=== PATIENT | female | born 1975 | race Caucasian/White ===

== ENCOUNTER 2022-05-30 14:36 | Outpatient (REF) | payer MEDICAID, SELFPAY ==
[2022-05-30 16:56] LABS: Anion Gap 12 (12-20); Blood Urea Nitrogen 16 mg/dL (9-16); Calcium 9.4 mg/dL (8.4-10.2); Carbon Dioxide 26 mmol/L (22-29); Chloride 105 mmol/L (96-108); Estimated Glomerular Filt Rate 49; Potassium 4.2 mmol/L (3.3-5.1); Sodium 139 mmol/L (135-145)
[2022-05-30 17:19] LABS: Appearance Urine Clear; Color Urine Yellow; Glucose Urine UA Negative (Negative); Leukocyte Esterase Urine Small (1+) (Negative); Nitrite Urine Negative (Negative); Specific Gravity - Urine 1.015 (1.005-1.025); UMIC TRIGGER UA YES; Urine Blood Negative (Negative); Urine Ketones Negative (Negative); Urine Protein 100 (2+) mg/dL (Neg-Trace)
[2022-05-30 17:26] LABS: Bacteria Urine 2+ (None Seen); Hyaline Casts Urine 0-2 /LPF (0-2)
[2022-05-30 18:01] LABS: Creatinine Urine 134.04 mg/dL; Protein/Creatinine Ratio, Ur 0.93 (<0.2); Total Protein Urine Random 125 mg/dL (<12)
[2022-05-30 18:09] LABS: Microalbum/Creatinine Ratio Ur 634.8 ug/mg cr
[2022-05-31 08:13] LABS: Hepatitis B Surface Antigen Negative (Negative); ~Hepatitis C Antibody Nonreactive (Nonreactive)
[2022-06-01 13:13] LABS: Anti Nuclear Antibody Screen NEGATIVE (NEGATIVE)
[2022-06-01 13:28] LABS: Complement C3 190 mg/dL (83-193)
[2022-06-02 07:23] LABS: Hepatitis B Core Antibody IgM NON-REACTIVE (NON-REACTIVE)
[2022-06-02 15:13] LABS: Kappa Light Chain, Free Serum 48.2 mg/L (3.3-19.4); Kappa/Lambda Lt Ch Free Ratio 1.21 (0.26-1.65); Lambda Light Chain, Free Serum 39.9 mg/L (5.7-26.3)
[2022-06-02 23:29] LABS: Prot Elec - Alpha1 0.2 g/dL (0.2-0.3); Prot Elec - Alpha2 0.8 g/dL (0.5-0.9); Prot Elec - Beta 1 0.5 g/dL (0.4-0.6); Prot Elec - Beta 2 0.4 g/dL (0.2-0.5); Prot Elec - Gamma 1.5 g/dL (0.8-1.7); Prot Elec - Total Protein 7.3 g/dL (6.1-8.1)
== END 2022-05-30 14:37 | disposition home or self-care (01) ==
LOC: HO.LAB 14:36
PROVIDERS: PCP Family Medicine; Visit Provider Internal Medicine Nephrology
DX: E11.22 Type 2 diabetes mellitus with diabetic chronic kidney disease (principal); I12.9 Hypertensive chronic kidney disease with stage 1 through stage 4 chronic kidney disease, or unspecified chronic kidney disease; N18.9 Chronic kidney disease, unspecified; R80.1 Persistent proteinuria, unspecified
CPT/HCPCS: 36415; 80051; 81001; 82043; 82310; 82565; 83521; 84156; 84165; 84520; 86038; 86039; 86160; 86705; 86803; 87340

== ENCOUNTER 2023-02-16 13:40 | Outpatient (AMB) | payer BC, MEDICAID, SELFPAY ==
[2023-02-16 13:46] VITALS: BP 136/75; PULSE 85; BMI 43.1
--- NOTE | 2023-02-16 13:46 | MHC.OFFVIS ---
Intake Vital Signs 02/16/23 13:46 Height 5 ft 5 in Weight 259 lb BMI 43.1 BP 136/75 Blood Pressure Location Rt brachial Position Sitting Pulse 85 Intake Visit Reasons: external hemorrhoids Intake Note: Patient here for painful external hemorrhoids. Recent flare up for 3wks. C/o bleeding. Denies constipation. Patient c/o severe pain with BM. Colonoscopy from December patient waiting to be reschedule. Accompanied by: Self / Same As Patient Allergies No Known Allergies Allergy (Verified 02/16/23 13:49) HPI HPI Comments History of Present Illness Details Patient presents for for evaluation of severe anorectal symptoms . This has been going on for 3-4 weeks time. She is complaining of intense anorectal pain, which she was attributing to hemorrhoids. She had history of hemorrhoids in the past. Patient has not had colonoscopy and is in fact scheduled for 1 in April. Patient does not have history of constipation. Regular bowel habits and diet. Chart was reviewed and patient evaluated [facility] Medical History (Updated 02/16/23 @ 13:54 by JODY King) Asthma HTN (hypertension) Other cervical disc degeneration at C4-C5 level Pre-diabetes Surgical History (Updated 02/16/23 @ 14:11 by Ulises Shultz MD) H/O: hysterectomy Hx of tonsillectomy Social History (Updated 02/16/23 @ 13:54 by JODY King) Alcohol intake: never Patient Tobacco Use Status: Never used Tobacco Physical Exam Vital Signs: Last Vital Signs Pulse 85 02/16/23 13:46 BP 136/75 02/16/23 13:46 BMI result Body Mass Index 43.1 GI Other: Very challenging exam secondary to patient discomfort and moderate corpulent. Abdomen soft benign. Anorectal exam in the prone position demonstrated very small external hemorrhoids. Patient had a moderately sized anterior anal fissure. Rectal exam was deferred secondary to patient's marked discomfort and in a rectal spasm. Assessment & Plan Assessment & Plan (1) Fissure in ano: Code(s): K60.2 - Anal fissure, unspecified Plan Working diagnosis is of anal rectal fissure. At present, no significant hemorrhoidal disease demonstrated. Because of the marked discomfort at the patient is having, patient may benefit from internal sphincterotomy. Will refer her for evaluation tomorrow with Dr. Gill for 2nd opinion regarding this. All questions were answered. Arrangements were made for follow-up tomorrow. Coding Level of Care Code New Pt Level 4 (13648) Diagnoses Fissure in ano K60.2
== END 2023-02-16 14:10 | disposition home or self-care (01) ==
PROVIDERS: PCP Family Medicine; Referring Provider Family Medicine; Visit Provider Surgery
DX: K60.2 Anal fissure, unspecified (principal)
CPT/HCPCS: 99204

== ENCOUNTER → 2023-02-16 13:40 | Outpatient (BNVA) | payer BC, MEDICAID, SELFPAY | PROVIDERS: PCP Family Medicine; Referring Provider Family Medicine; Visit Provider Surgery | DX: K60.2 Anal fissure, unspecified (principal) | CPT/HCPCS: 99202 ==

== ENCOUNTER 2023-02-17 10:32 | Outpatient (AMB) | payer BC, MEDICAID, SELFPAY ==
--- NOTE | 2023-02-17 10:56 | MHC.OFFVIS ---
Intake Vital Signs 02/17/23 11:06 Height 5 ft 5 in Weight 257 lb 15.053 oz BMI 42.9 BP 130/72 Blood Pressure Location Lt brachial Position Sitting Pulse 80 Intake Visit Reasons: Anal fissure - internal sphincterotomy Intake Note: Patient is seen in office for evaluation and treatment of anal fissure/internal sphincterotomy. Patient c/o: increase pain since yesterday, seen by Dr Shultz Dial Painter Required: No Accompanied by: Self / Same As Patient Allergies No Known Allergies Allergy (Verified 02/17/23 11:07) HPI HPI Comments History of Present Illness Details 47-year-old female patient presenting for complaints of anal pain and bleeding for the past 3-4 weeks. She has a history of hemorrhoids feels the pain is much more severe. She denies constipation but does have loose stool and occasionally has difficulty holding in her bowels. This is been a problem since her gallbladder surgery. She denies needing to strain to have a bowel movement. She was seen by Dr. Shultz yesterday in felt to have a anal fissure with tight anal sphincter muscles. She is seen as a 2nd opinion today for possible lateral internal sphincterotomy. [facility] Medical History Asthma HTN (hypertension) Other cervical disc degeneration at C4-C5 level Pre-diabetes Surgical History H/O: hysterectomy Hx of tonsillectomy Social History Alcohol intake: never Patient Tobacco Use Status: Never used Tobacco Review of Systems Const All systems reviewed & are unremarkable except as noted in HPI and below Denies chills, Denies fever(s), Denies headache(s), Denies poor appetite and Denies weakness ENT Denies headache(s) Card Denies chest pain, Denies irregular heart rhythm, Denies palpitations and Denies dyspnea Resp Denies cough, Denies excessive phlegm production and Denies dyspnea GI Denies abdominal pain, Denies bloating, Denies change in bowel habits, Denies constipation, Reports GI cramping, Denies heartburn, Reports diarrhea, Denies nausea and Denies vomiting Denies urinary frequency Musc Denies back pain, Denies muscle weakness and Denies numbness Skin/Breast Denies changing lesions and Denies unusual bruising Neuro Denies headache(s), Denies numbness, Denies paresthesias and Denies weakness Psych Denies anxiety and Denies depression Endo Denies palpitations Jono/Lymph Denies lymphadenopathy Physical Exam Const General: cooperative and no acute distress Nutritional Appearance: well nourished Orientation/consciousness: patient oriented x3 Limitations: no limitations HEENT Head: Yes normocephalic and Yes atraumatic Ears: hearing grossly normal bilaterally Resp Effort & Inspection: normal respiratory effort, no audible wheezes, no cough and no respiratory distress Cardio Jugular venous distension: no JVD GI Inspection: Yes normal to inspection Palpation (GI): Soft to palpation Rectal Exam - Female: deferred Skin Other: Warm, dry, no rash Neuro General: patient oriented x3 Extrem General: Yes no clubbing, cyanosis or edema Assessment & Plan Assessment & Plan (1) Fissure in ano: Code(s): K60.2 - Anal fissure, unspecified Plan 47-year-old female patient with severe rectal pain found on examination yesterday to have an anal fissure with anal sphincter hypertrophy. Patient is in significant discomfort this morning therefore examination was deferred. I recommended exam under anesthesia with possible lateral internal sphincterotomy. I reviewed the procedure, risks, and alternatives in detail and she consents to the exam under anesthesia and possible lateral internal sphincterotomy. Coding Level of Care Code Est Pt Level 3 (34323) Diagnoses Fissure in ano K60.2
[2023-02-17 11:06] VITALS: BP 130/72; PULSE 80; BMI 42.9
== END 2023-02-17 11:21 | disposition home or self-care (01) ==
PROVIDERS: PCP Family Medicine; Visit Provider Surgery
DX: K60.2 Anal fissure, unspecified (principal)
CPT/HCPCS: 99213

== ENCOUNTER → 2023-02-17 10:32 | Outpatient (BNVA) | payer BC, MEDICAID, SELFPAY | PROVIDERS: PCP Family Medicine; Visit Provider Surgery | DX: K60.2 Anal fissure, unspecified (principal) | CPT/HCPCS: 99212 ==

== ENCOUNTER 2023-02-20 10:45 | Day surgery (SDC) | payer BC, MEDICAID, SELFPAY ==
[2023-02-20] VITALS (10 sets, daily range): BP systolic 127–155; BP diastolic 74–96; PULSE 77–93; RESP 12–23; TEMP 36.5–36.9; O2SAT 92–96; BMI 42.9
--- NOTE | 2023-02-20 12:25 | HO.ANESPROP2 ---
HPI - Anesthesia Eval Consult details Narrative: for anal fissure PMFSH Active Problems Active Problems: All Active Problems (Updated 02/20/23 @ 12:12 by Keisha Barcenas RN) Fissure in ano (Acute) Past Medical History Medical History Asthma HTN (hypertension) Other cervical disc degeneration at C4-C5 level Pre-diabetes Proteinuria Family History Family history of problems with anesthesia: No Surgical History Surgical History H/O: hysterectomy History of cholecystectomy Hx of tonsillectomy History of Problems with Anesthesia: No Social History Social History Alcohol intake: never Patient Tobacco Use Status: Never used Tobacco Use of substances other than those prescribed or required for medical reasons: No Are you DNR?: No Advance Directives: No Advance Directives Information Provided: Yes Meds Allergies Allergy/AdvReac Type Severity Reaction Status Date / Time No Known Allergies Allergy Verified 02/17/23 11:07 Active Medications: Current Medications Lactated Ringer's (Lr) 1,000 mls @ 100 mls/hr IVCONT .Q10H МАРИЯ Cefotetan Disodium 2 gm/ (Sodium Chloride) 50 mls @ 100 mls/hr IV PREOP ONE Stop: 02/20/23 12:27 Home Medications Medication Instructions Recorded Confirmed Last Taken Type amitriptyline 25 mg tablet 25 mg PO BEDTIME 02/16/23 Unknown History amlodipine 5 mg tablet 5 mg PO DAILY 02/16/23 Unknown History baclofen 10 mg tablet 10 mg PO TID 02/16/23 Unknown History losartan 100 mg tablet 100 mg PO DAILY 02/16/23 Unknown History metformin 500 mg tablet 500 mg PO DAILY 02/16/23 Unknown History omeprazole 20 mg capsule,delayed 20 mg PO DAILY 02/16/23 Unknown History release rosuvastatin 20 mg tablet 20 mg PO DAILY 02/16/23 Unknown History Exam Exam Date and Time: February 20, 2023 1225 Height,Weight and Vital Signs: Height 5 ft 5 in Weight 117.027 kg Airway Mallampati Class: III TM Dist: <=3cm Neck ROM: Full Heart: rrr Lungs: cta Assessment and Plan Assessment Anesthesia Assessment: Anesthesia Plan Discussed and Chart Reviewed Final Anesthetic Review Family History of Problems with Anesthesia: No History of Problems with Anesthesia: No ASA Class: III Final Preanesthetic Review: No Changes in Pt Med Stat, Meds/Allgs Chart Reviewed, Consent Obtained/Reviewed and Anes Risks/Benef Reviewed Patient Risk: Intermediate Procedure Risk: Intermediate Anesthetic Plan Anesthetic Plan: GA Disposition: Standard PACU
[2023-02-20] MEDS: Lactated Ringers 1,000 ML 100 ML IVCONT (12:44)
[2023-02-20 12:45] LABS: Glucose, Whole Blood 110 mg/dL (60-115)
--- NOTE | 2023-02-20 13:37 | P.OP_ITS ---
Operative Note Operative Note Date of Service: 02/20/23 Narrative: Preoperative diagnosis: Fissure in ano Postoperative diagnosis: Same Procedure: Exam under anesthesia, lateral internal sphincterotomy Surgeon: Black Gill MD Senior Systems Engineer: None Anesthesia: General endotracheal Indications for procedure: 47-year-old female patient presenting with complaints of rectal pain and bleeding on a daily basis especially with bowel movements. Patient was found to have a tight anal sphincter muscle on examination with extreme pain on palpation. 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 Operative findings: Anal fissure in the posterior anal wall, hypertrophic inte rnal anal sphincter Specimen: None Estimated blood loss: 5 mL Complications: None Procedure details: Patient was brought to the OR placed in a supine position. After administering general anesthesia she was placed in a lithotomy position. The ebonie anal skin was prepped with Betadine and draped in a sterile fashion. Surgical time-out was called the consent confirmed. Patient received pr eoperative antibiotics and Venodyne boots were in place. An anal below was inserted in the anal mucosa examined. A fissure was noted the posterior wall which was actively bleeding. Sphincter was markedly hypertrophied. Internal examination revealed mild internal hemorrhoids without evidence of ulceration or bleeding. No evidence of perirectal abscess was identified. Local anesthesia was infiltrated in a 03:00 o'clock location while in the lithotomy position. The small incision measuring approximately 1 cm was made in the lateral anal mucosa at the 3 o'clock position. A hemostat was then used to dissect the hypertrophic internal anal sphincter. This was brought up through the incision. Electrocautery was then used to divide the anal sphincter. A small amount of residual anal sphincter was noted sightly more proximally. This was also brought through the incision and divided. These were then checked for hemostasis. Light pressure was held to maintain hemostasis. A packing c onsisting of a rolled 4 x 4 gauze and Xeroform was then placed into the anal canal and left in place. This was then followed by an ABD pad. The patient tolerated the procedure well. Sponge, instrument, needle counts reported as correct. The patient was transferred to PACU in stable condition.
[2023-02-20] MEDS: oxyCODONE HCl Immed Release 5 MG TABLET PO (13:57)
[2023-02-20] MEDS: ondansetron HCL 4 MG/2 ML VIAL IVPUSH (14:08)
== END 2023-02-20 15:41 | disposition home or self-care (01) ==
PROVIDERS: PCP Family Medicine; Visit Provider Surgery
PROC: (CPT 46080; principal; 2023-02-20 13:00)
DX: K60.2 Anal fissure, unspecified (principal); K62.89 Other specified diseases of anus and rectum; K62.5 Hemorrhage of anus and rectum; I10 Essential (primary) hypertension; R73.03 Prediabetes; J45.909 Unspecified asthma, uncomplicated; R80.9 Proteinuria, unspecified; Z79.84 Long term (current) use of oral hypoglycemic drugs; Z79.899 Other long term (current) drug therapy; Z90.49 Acquired absence of other specified parts of digestive tract
CPT/HCPCS: 46080; 82947; J0330; J1100; J1885; J2405

== ENCOUNTER → 2023-02-20 10:45 | Outpatient (BNV) | payer BC, MEDICAID, SELFPAY | PROVIDERS: PCP Family Medicine; Visit Provider Surgery | DX: K60.2 Anal fissure, unspecified (principal) | CPT/HCPCS: 46080 ==

== ENCOUNTER 2023-02-24 15:01 | Outpatient (REF) | payer BC, MEDICAID, SELFPAY ==
[2023-02-24 18:03] LABS: Appearance Urine Cloudy; Color Urine Yellow; Glucose Urine UA Negative (Negative); Leukocyte Esterase Urine Negative (Negative); Nitrite Urine Negative (Negative); PH 5.5 (5.0-9.0); Specific Gravity - Urine 1.015 (1.005-1.025); UMIC TRIGGER UA YES; Urine Blood Negative (Negative); Urine Ketones Negative (Negative); Urine Protein 300 (3+) mg/dL (Neg-Trace)
[2023-02-24 18:06] LABS: Bacteria Urine 4+ (None Seen); Hyaline Casts Urine 0-2 /LPF (0-2)
[2023-02-24 18:13] LABS: Hematocrit 41.2 % (37.0-47.0); Hemoglobin 13.7 g/dl (12.0-16.0); Mean Corpuscular HGB Conc 33.3 g/dl (31.0-35.0); Mean Corpuscular Hemoglobin 30.6 pg (27.0-33.0); Mean Platelet Volume 11.4 fL (9.4-12.3); Platelet Count 305 X10*3/uL (160-400); Red Blood Count 4.48 X10*6/uL (4.20-5.50); Red Cell Distribution Width 12.1 % (11.0-16.0); White Blood Count 9.3 X10*3/uL (4.8-10.8)
[2023-02-24 18:38] LABS: Albumin Level 4.1 g/dL (3.5-5.0); Anion Gap 15 (12-20); Blood Urea Nitrogen 12 mg/dL (9-16); Calcium 9.6 mg/dL (8.4-10.2); Carbon Dioxide 28 mmol/L (22-29); Chloride 103 mmol/L (96-108); Estimated Glomerular Filt Rate 44; Magnesium 1.6 mg/dL (1.6-2.6); Phosphorus 3.1 mg/dL (2.7-4.5); Potassium 3.6 mmol/L (3.3-5.1); Sodium 142 mmol/L (135-145)
[2023-02-24 18:49] LABS: Creatinine Urine 196.93 mg/dL; Microalbum/Creatinine Ratio Ur 775.4 ug/mg cr (<30); Protein/Creatinine Ratio, Ur 1.05 (<0.2); Total Protein Urine Random 207 mg/dL (<12)
[2023-02-24 18:53] LABS: Vitamin D 25-OH Total 35.5 ng/mL (>30)
[2023-02-27 11:29] LABS: Calcium (PTHI) 9.5 mg/dL (8.6-10.2); PTHI 58 pg/mL (16-77)
== END 2023-02-24 15:02 | disposition home or self-care (01) ==
LOC: HO.CHCLDS 15:01
PROVIDERS: Internal Medicine Nephrology; Visit Provider Internal Medicine
DX: I12.9 Hypertensive chronic kidney disease with stage 1 through stage 4 chronic kidney disease, or unspecified chronic kidney disease (principal); E11.22 Type 2 diabetes mellitus with diabetic chronic kidney disease; N18.31 Chronic kidney disease, stage 3a
CPT/HCPCS: 36415; 80051; 81001; 82040; 82043; 82306; 82310; 82565; 83735; 83970; 84100; 84156; 84520; 85027

== ENCOUNTER 2023-02-28 08:37 | Outpatient (AMB) | payer BC, MEDICAID, SELFPAY ==
--- NOTE | 2023-02-28 08:42 | A.OFFVIS_ITS ---
Intake Vital Signs 02/28/23 08:50 Height 5 ft 5 in Weight 258 lb 13.163 oz BMI 43.1 BP 130/82 Blood Pressure Location Lt brachial Position Sitting Intake Visit Reasons: S/P EUA, sphincterotomy Intake Note: Patient is seen in office for post op assessment post sphincterotomy. 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 She tolerated the procedure well and notes a dramatic improvement. Her pain is much improved bowels are moving normally. She does have a small amount of yellowish discharge denies any fever or chills. PFSH Medical History Asthma HTN (hypertension) Other cervical disc degeneration at C4-C5 level Pre-diabetes Proteinuria Surgical History H/O rectal sphincterotomy H/O: hysterectomy History of cholecystectomy Hx of tonsillectomy Social History Alcohol intake: never Patient Tobacco Use Status: Never used Tobacco Physical Exam Vital Signs: Last Vital Signs BP 130/82 02/28/23 08:50 BMI result Body Mass Index 43.1 Const General: healthy appearing and no acute distress Nutritional Appearance: well nourished Orientation/consciousness: patient oriented x3 Limitations: no limitations Resp Effort & Inspection: normal respiratory effort GI Other: Perianal skin is normal without redness or discharge. Small residual incision is noted in the perianal skin which is healing nicely. No evidence of infection or bleeding. Inspection: Yes normal to inspection Skin General skin exam: no rashes or lesions noted Neuro General: patient oriented x3 Extrem General: Yes no clubbing, cyanosis or edema Assessment & Plan Assessment & Plan (1) Fissure in ano: Code(s): K60.2 - Anal fissure, unspecified Plan Patient returns 1 week following lateral internal sphincterotomy for anal fissure. She is much improved and denies any ongoing perianal symptoms other than a small amount of discharge. Her wounds are clean and intact and healing nicely. She should continue to keep the wounds clean with Sitz baths after every bowel movement and p.r.n.. She will follow-up as needed. Coding Level of Care Code Global (77119) Diagnoses Fissure in ano K60.2
[2023-02-28 08:50] VITALS: BP 130/82; BMI 43.1
== END 2023-02-28 08:59 | disposition home or self-care (01) ==
PROVIDERS: PCP Family Medicine; Visit Provider Surgery
DX: K60.2 Anal fissure, unspecified (principal)
CPT/HCPCS: 99024

== ENCOUNTER → 2023-02-28 08:37 | Outpatient (BNVA) | payer BC, MEDICAID, SELFPAY | PROVIDERS: PCP Family Medicine; Visit Provider Surgery ==

== ENCOUNTER 2023-04-17 12:38 | Outpatient (REF) | payer BC, MEDICAID, SELFPAY ==
[2023-04-17 14:28] LABS: B Type Natriuretic Peptide < 10 pg/mL (<100)
[2023-04-17 14:36] LABS: Anion Gap 15 (12-20); Blood Urea Nitrogen 15 mg/dL (9-16); Calcium 9.6 mg/dL (8.4-10.2); Carbon Dioxide 24 mmol/L (22-29); Chloride 106 mmol/L (96-108); Estimated Glomerular Filt Rate 50; Glucose Random 108 mg/dL (60-115); Sodium 141 mmol/L (135-145)
== END 2023-04-17 12:39 | disposition home or self-care (01) ==
LOC: HO.LAB 12:38
PROVIDERS: Visit Provider Emergency Medicine
DX: R60.0 Localized edema (principal)
CPT/HCPCS: 36415; 80048; 83880

== ENCOUNTER 2023-10-03 12:10 | Outpatient (REF) | payer BC, MEDICAID, SELFPAY ==
--- NOTE | ~2023-10-03 | XR_ITS ---
EXAMINATION: XR THORACIC SPINE CLINICAL INFORMATION: Pain. COMPARISON: None available. TECHNIQUE: Frontal, lateral and swimmer's views of the thoracic spine were obtained. FINDINGS: There is a slight T8 anterior wedge compression fracture. Vertebral body heights are otherwise unremarkable. The thoracic disc spaces are well-maintained. There is multi-level mild thoracic endplate arthropathy. The posterior elements are intact. The paravertebral soft tissues are unremarkable. There are right upper quadrant surgical clips. XR/XR thoracic spine 2V IMPRESSION: 1. There is an age-indeterminate slight T8 anterior wedge compression fracture. 2. The thoracic disc spaces are well-maintained. 3. There is multi-level mild thoracic endplate arthropathy. EXAMINATION: XR SACRUM AND COCCYX CLINICAL INFORMATION: Pain. COMPARISON: None available. TECHNIQUE: 3 frontal and lateral views of the sacrum and coccyx were obtained. FINDINGS: There are no fractures. No bone, joint or soft tissue abnormality is demonstrated. IMPRESSION: Unremarkable examination.
--- NOTE | ~2023-10-03 | XR_ITS ---
EXAMINATION: XR THORACIC SPINE CLINICAL INFORMATION: Pain. COMPARISON: None available. TECHNIQUE: Frontal, lateral and swimmer's views of the thoracic spine were obtained. FINDINGS: There is a slight T8 anterior wedge compression fracture. Vertebral body heights are otherwise unremarkable. The thoracic disc spaces are well-maintained. There is multi-level mild thoracic endplate arthropathy. The posterior elements are intact. The paravertebral soft tissues are unremarkable. There are right upper quadrant surgical clips. XR/XR sacrum coccyx min 2V IMPRESSION: 1. There is an age-indeterminate slight T8 anterior wedge compression fracture. 2. The thoracic disc spaces are well-maintained. 3. There is multi-level mild thoracic endplate arthropathy. EXAMINATION: XR SACRUM AND COCCYX CLINICAL INFORMATION: Pain. COMPARISON: None available. TECHNIQUE: 3 frontal and lateral views of the sacrum and coccyx were obtained. FINDINGS: There are no fractures. No bone, joint or soft tissue abnormality is demonstrated. IMPRESSION: Unremarkable examination.
== END 2023-10-03 12:11 | disposition home or self-care (01) ==
LOC: HO.XRAY 12:10
PROVIDERS: PCP Family Medicine; Visit Provider Nurse Practitioner Family
DX: M53.3 Sacrococcygeal disorders, not elsewhere classified (principal); M54.6 Pain in thoracic spine
CPT/HCPCS: 72070; 72220

== ENCOUNTER 2023-11-28 14:34 | Outpatient (AMB) | payer BC, MEDICAID, SELFPAY ==
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
[2023-11-28 14:45] VITALS: BP 177/87; PULSE 75; O2SAT 97; BMI 43.3
== END 2023-11-28 15:42 | disposition home or self-care (01) ==
PROVIDERS: PCP Family Medicine; Visit Provider Nurse Practitioner Family
DX: M50.30 Other cervical disc degeneration, unspecified cervical region (principal); M54.12 Radiculopathy, cervical region; M47.812 Spondylosis without myelopathy or radiculopathy, cervical region; M51.16 Intervertebral disc disorders with radiculopathy, lumbar region; M54.50 Low back pain, unspecified; M62.838 Other muscle spasm
CPT/HCPCS: 99204

== ENCOUNTER → 2023-11-28 14:34 | Outpatient (BNVA) | payer BC, MEDICAID, SELFPAY | PROVIDERS: PCP Family Medicine; Visit Provider Nurse Practitioner Family ==

== ENCOUNTER 2023-12-06 14:49 | Outpatient (AMB) | payer MEDICAID, SELFPAY ==
--- NOTE | 2023-12-06 15:03 | A.SPINEOV_ITS ---
Intake Visit Reasons: LBP Intake Note: Ms. Mendez is here today c/o low back pain. 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 She has a pleasant 48-year-old female who comes in today with a chief complaint of low back pain with radiation into her bilateral lower extremities, left side worse than right. Additionally, she reports some less significant posterior cervical neck pain with pains that shoot down her right arm. She states she has been dealing with these neck/arm pains for years, and does not feel as though they are primary concern for her at this time. In regards to her back pain, she states it starts in her low back shoots around her lateral buttocks over her hip and into the lateral thigh. When asked to localize her pain she points directly to her left posterior / lateral waistline. She states this pain has been ongoing for ?years? and that it worsens if she sits / stands for too long. She reports a pertinent medical history of natural childbirth. Additionally she says that getting up out of a car exacerbates her pain, and states that she needs to sit on her right side to relieve pressure off her left in order to obtain symptom relief. She reports she has tried a plethora of iedu-cdv-qotxovl medications in the past including Tylenol, ibuprofen, and hemj-kms-lnmnpnh pain cream/gels. She also has tried several different prescription medications without signific ant symptom relief. She has been to physical therapy and found it has not been helpful for her. PMH: Hysterectomy, tonsillectomy, type 2 diabetes, high blood pressure, hyperlipidemia, asthma, depression. Social hx: Patient does not smoke, reports no substance use. Medications: Metformin, amlodipine, rosuvastatin, albuterol, gabapentin, amitriptyline, baclofen, vitamin D3. Allergies: NKDA. Physical exam: The patient has 5/5 strength in her upper and lower extremities, however does elicit pain to dorsiflexion/plantar flexion. No significant sensational deficits. Reflexes are 2+ intact. (+) left-sided Magdalene finger test, (+) left-sided Rosendo's. (-) bilateral straight leg raise. (-) clonus. (-) Last's. Imaging review: MRI imaging was completed at [facility]. MRI of the cervical spine shows evidence of previous fusion at C4-5, with likely adjacent segment degeneration at C5-6, causing moderate central canal stenosis at this level. MRI of the thoracic spine shows intermittent disc bulging throughout the thoracic spine without any significant impingement noted. MRI of the lumbar spine shows moderate-severe bilateral foraminal stenosis at L4-5, with no significant central canal stenosis noted. There is also mild-moderate bilateral foraminal stenosis at L5-S1. Again no evidence of significant central canal stenosis at this level. Impression: Paula is a pleasant 48-year-old female who comes in today with a chief complaint of low back pain with radiation into her bilateral lower extremities, left side worse than right. She reports a history of natural childbirth, states it is extremely difficult for her to sit up out of a car, has a (+) Magdalene finger test, and has extreme difficulty attempting Rosendo's on left. These findings are most consistent with an SI joint pathology. Her foraminal stenosis in the lumbar spine does not appear any worse on either side upon MRI review. I would like her to have a diagnostic left-sided SI joint block completed in order to rule this out as a potential cause for symptoms. If this does not provide any relief, I may consider re-evaluating her lumbar spine MRI based on the severity of her symptoms or having referred for trochanteric bursa injections. I think ruling out a left-sided SI joint pathology is of pertinent importance before proceeding further. Thank you for allowing us to care for your patient. The total time spent with this visit with this patient was 45 minutes reviewing history, physical exam, MRI imaging review, and implementation of treatment plan or further diagnostic testing Josh Heredia MD,PhD [facility] Coding Level of Care Code New Pt Level 4 (59192) Diagnoses SI (sacroiliac) joint dysfunction M53.3
== END 2023-12-06 15:28 | disposition home or self-care (01) ==
PROVIDERS: PCP Family Medicine; Referring Provider Nurse Practitioner Family; Visit Provider Physician Assistant
DX: M53.3 Sacrococcygeal disorders, not elsewhere classified (principal)
CPT/HCPCS: 99204

== ENCOUNTER → 2023-12-06 14:49 | Outpatient (BNVA) | payer MEDICAID, SELFPAY | PROVIDERS: PCP Family Medicine; Visit Provider Physician Assistant | DX: M53.3 Sacrococcygeal disorders, not elsewhere classified (principal) | CPT/HCPCS: 99212 ==

== ENCOUNTER 2024-01-24 14:29 | Outpatient (REF) | payer MEDICAID, SELFPAY ==
--- NOTE | ~2024-01-24 | XR_ITS ---
EXAMINATION: XR NASAL BONES CLINICAL INFORMATION: Nasal swelling. Severe pain. No history of trauma. COMPARISON: None available. TECHNIQUE: 3 views of the nasal bones were obtained. FINDINGS: There are no fractures or dislocations. No bone, joint or soft tissue abnormality is demonstrated. XR/XR nasal bones min 3V IMPRESSION: Unremarkable examination.
== END 2024-01-24 14:30 | disposition home or self-care (01) ==
LOC: HO.HHCX 14:29
PROVIDERS: Visit Provider Internal Medicine Geriatric Medicine
DX: R22.0 Localized swelling, mass and lump, head (principal); J34.89 Other specified disorders of nose and nasal sinuses
CPT/HCPCS: 70160

== ENCOUNTER 2024-02-06 06:33 | Outpatient (REF) | payer MEDICAID, SELFPAY ==
--- NOTE | ~2024-02-06 | FL_ITS ---
EXAMINATION: XR FLUOROSCOPY WITH IMAGES CLINICAL INFORMATION: Sacrococcygeal disorders, not elsewhere classified. COMPARISON: Plain films of the sacrum 10/03/2023. TECHNIQUE: Fluoroscopy provided to: Dr. Valdes Fluoroscopy time: 0.1 minutes DAP: 0.138 mGycm2 Images: 1 FINDINGS: Solitary coned-down image of the left SI joint shows needle in place with subsequent intra-articular contrast injection. FL/FL guidance in treatment room IMPRESSION: Fluoroscopic guidance. Please refer to the full operative report for details. Electronically signed by: Bryant Lantigua MD 04/05/2024 02:41 PM EDT
== END 2024-02-06 06:34 | disposition home or self-care (01) ==
LOC: CF 06:33
PROVIDERS: Visit Provider Anesthesiology
DX: M53.3 Sacrococcygeal disorders, not elsewhere classified (principal); G89.29 Other chronic pain
CPT/HCPCS: 27096; J2795; J3301; Q9967

== ENCOUNTER 2024-02-06 14:14 | Outpatient (AMB) | payer MEDICAID, SELFPAY ==
[2024-02-06 14:19] VITALS: BP 159/98; PULSE 68; RESP 16; O2SAT 98; BMI 42.6
--- NOTE | 2024-02-06 14:19 | MHC.OFFVIS ---
Vital Signs 02/06/24 14:19 02/06/24 15:29 Height 5 ft 5 in Weight 256 lb BMI 42.6 BP 159/98 H 169/94 H Blood Pressure Location Rt brachial Rt brachial Position Sitting Sitting Respiration 16 16 Pulse 68 77 Pulse Source Pulse Oximeter Pulse Oximeter Pulse Oximetry (%) 98 98 Oxygen Delivery Method Room Air Room Air Comment Pre-Op Post-Op Intake Visit Reasons: left SIJ joint Diagnostic Allergies No Known Allergies Allergy (Verified 02/06/24 14:20) PFSH Medical History (Updated 02/06/24 @ 15:31 by Scott Valdes MD) Ascending aorta dilatation Chronic bilateral thoracic back pain Foot pain, bilateral Vitamin D deficiency Hyperlipidemia Plantar fasciitis Moderate persistent asthma Stage 3a chronic kidney disease Proteinuria Other cervical disc degeneration at C4-C5 level Asthma Pre-diabetes HTN (hypertension) Surgical History (Updated 11/28/23 @ 20:19 by KALI Martin) Fissure in ano H/O rectal sphincterotomy History of cholecystectomy Hx of tonsillectomy H/O: hysterectomy Social History Alcohol intake: never Patient Tobacco Use Status: Never used Tobacco Physical Exam Vital Signs: Last Vital Signs Pulse 68 02/06/24 14:19 Resp 16 02/06/24 14:19 BP 159/98 H 02/06/24 14:19 Pulse Ox 98 02/06/24 14:19 Oxygen Delivery Method Room Air 02/06/24 14:19 BMI result Body Mass Index 42.6 Assessment & Plan Assessment & Plan (1) SI (sacroiliac) joint dysfunction: Code(s): M53.3 - Sacrococcygeal disorders, not elsewhere classified Category: Medical (2) Chronic left SI joint pain: Code(s): M53.3 - Sacrococcygeal disorders, not elsewhere classified; G89.29 - Other chronic pain Category: Medical Plan Left diagnostic sacroiliac joint injection Informed consent was explained thoroughly to the patient. All questions about benefits and risks for the procedure were answered. Patient came to the operating room and was positioned prone on the operating table with the pillow under the pelvis. Time out was performed delineating name and of the patient, allergies and the nature of the procedure. The lower back and buttocks of the patient were prepped with ChloraPrep prepped and draped with sterile utility towels. C-arm was brought over the operating field and sq picture of patient's pelvis was demonstrated on the screen. For the left joint tilting C-arm contralateral to the site of the joint the most posterior portion of the joints was superimposed with anterior silhouette of the joint. Skin was injected in the projection of the joint slightly medial to the location of the joint with 25 gauge 1/2 inch needle using local lidocaine 2% .After that 22 gaug 5 inch needle was driven to the left joint in tunnel vision fashion. Due to excessive body mass and advanced lumbar lordosis the needle advancement was difficult. The needle was directed to midportion of the joint however bony resistance was met and needle was redirected to upper portion of the joint. When needle entered the joint capsule injection of the contrast was performed demonstrating intra-articular and minimally periarticular spread of the contrast. After that 4 cc. of ropivacaine 0.5% was injected into the joint. Upon completion of the injections the needle was removed Sterile dressing was applied. Upon completion of the injection patient was taken outside of the operating room to the recovery room where recovered uneventfully. Orders: Orders FL guidance in treatment room Today M53.3 - Sacrococcygeal disorders, not elsewhere classified Coding Level of Care Code Procedure Only Diagnoses SI (sacroiliac) joint dysfunction M53.3 Chronic left SI joint pain M53.3; G89.29
[2024-02-06 15:29] VITALS: BP 169/94; PULSE 77; RESP 16; O2SAT 98
== END 2024-02-06 15:08 | disposition home or self-care (01) ==
LOC: HO.PMCPRC 14:14
PROVIDERS: PCP Family Medicine; Referring Provider Family Medicine; Visit Provider Anesthesiology
DX: M53.3 Sacrococcygeal disorders, not elsewhere classified (principal); G89.29 Other chronic pain
CPT/HCPCS: 27096

== ENCOUNTER 2024-02-12 14:48 | Outpatient (AMB) | payer MEDICAID, SELFPAY ==
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
[2024-02-12 15:00] VITALS: BP 163/84; PULSE 79; O2SAT 98; BMI 42.6
== END 2024-02-12 15:25 | disposition home or self-care (01) ==
PROVIDERS: PCP Family Medicine; Visit Provider Nurse Practitioner Family
DX: M53.3 Sacrococcygeal disorders, not elsewhere classified (principal); G89.29 Other chronic pain; M51.16 Intervertebral disc disorders with radiculopathy, lumbar region; M54.50 Low back pain, unspecified; M62.838 Other muscle spasm; M47.812 Spondylosis without myelopathy or radiculopathy, cervical region; M47.817 Spondylosis without myelopathy or radiculopathy, lumbosacral region; E66.01 Morbid (severe) obesity due to excess calories; Z68.41 Body mass index [BMI] 40.0-44.9, adult
CPT/HCPCS: 99214

== ENCOUNTER → 2024-02-12 14:48 | Outpatient (BNVA) | payer MEDICAID, SELFPAY | PROVIDERS: PCP Family Medicine; Visit Provider Nurse Practitioner Family | DX: M53.3 Sacrococcygeal disorders, not elsewhere classified (principal); M51.16 Intervertebral disc disorders with radiculopathy, lumbar region; M54.50 Low back pain, unspecified; M62.838 Other muscle spasm; M47.812 Spondylosis without myelopathy or radiculopathy, cervical region; M47.817 Spondylosis without myelopathy or radiculopathy, lumbosacral region; G89.29 Other chronic pain | CPT/HCPCS: 99212 ==

== ENCOUNTER 2024-05-03 07:00 | Day surgery (SDC) | payer MEDICAID, SELFPAY ==
--- NOTE | 2024-03-21 10:13 | HO.ANESPROP2 ---
HPI - Anesthesia Eval Consult details Narrative: 48yo F for Bilateral L5-S1 Transforaminal Epidural Steroid Injection PMFSH Active Problems Active Problems: All Active Problems Morbid obesity with BMI of 40.0-44.9, adult (Acute) Lumbosacral spondylosis (Acute) Chronic left SI joint pain (Acute) SI (sacroiliac) joint dysfunction (Acute) Ascending aorta dilatation (Acute) Stage 3a chronic kidney disease (Acute) Muscle spasm (Acute) Low back pain (Acute) Lumbar disc herniation with radiculopathy (Acute) Cervical spondylosis (Acute) Cervical radiculopathy (Acute) Degenerative disc disease, cervical (Acute) Fissure in ano (Acute) Past Medical History Medical History (Updated 03/21/24 @ 10:14 by Renetta Rodriguez NP) Ascending aorta dilatation Chronic bilateral thoracic back pain Foot pain, bilateral Vitamin D deficiency Hyperlipidemia Plantar fasciitis Moderate persistent asthma Stage 3a chronic kidney disease Proteinuria Other cervical disc degeneration at C4-C5 level Asthma Pre-diabetes HTN (hypertension) Family History Family history of problems with anesthesia: No Surgical History Surgical History (Updated 11/28/23 @ 20:19 by KALI Martin) Fissure in ano H/O rectal sphincterotomy History of cholecystectomy Hx of tonsillectomy H/O: hysterectomy History of Problems with Anesthesia: No Social History Social History Alcohol intake: never Patient Tobacco Use Status: Never used Tobacco Meds Allergies Allergy/AdvReac Type Severity Reaction Status Date / Time No Known Allergies Allergy Verified 02/12/24 14:59 Home Medications ?Medication ?Instructions ?Recorded ?Confirmed ?Last Taken ?Type amitriptyline 25 mg tablet 25 mg PO BEDTIME 02/16/23 02/28/23 Unknown History amlodipine 5 mg tablet 5 mg PO DAILY 02/16/23 02/28/23 Unknown History baclofen 10 mg tablet 10 mg PO TID 02/16/23 02/28/23 Unknown History losartan 100 mg tablet 100 mg PO DAILY 02/16/23 02/28/23 Unknown History metformin 500 mg tablet 500 mg PO DAILY 02/16/23 02/28/23 Unknown History omeprazole 20 mg capsule,delayed 20 mg PO DAILY 02/16/23 02/28/23 Unknown History release rosuvastatin 20 mg tablet 20 mg PO DAILY 02/16/23 02/28/23 Unknown History albuterol sulfate 90 mcg/actuation 2 puff inhalation Q4-6H PRN 11/28/23 Unknown History aerosol inhaler (ProAir HFA) cholecalciferol (vitamin D3) 125 125 mcg PO DAILY 11/28/23 Unknown History mcg (5,000 unit) capsule gabapentin 100 mg capsule 100 mg PO TID 11/28/23 Unknown History ketotifen fumarate 0.025 % (0.035 1 drp ophthalmic (eye) BID 11/28/23 Unknown History %) eye drops Assessment and Plan Assessment Anesthesia Assessment: Chart Reviewed Final Anesthetic Review Family History of Problems with Anesthesia: No History of Problems with Anesthesia: No
[2024-05-03 07:20] VITALS: BMI 43.6
[2024-05-03] MEDS: Lactated Ringers 1,000 ML 100 ML IVCONT (07:44)
--- NOTE | 2024-05-03 07:52 | P.CONAN_ITS ---
[facility] Active Problems Active Problems: All Active Problems Morbid obesity with BMI of 40.0-44.9, adult (Acute) Lumbosacral spondylosis (Acute) Chronic left SI joint pain (Acute) SI (sacroiliac) joint dysfunction (Acute) Ascending aorta dilatation (Acute) Stage 3a chronic kidney disease (Acute) Muscle spasm (Acute) Low back pain (Acute) Lumbar disc herniation with radiculopathy (Acute) Cervical spondylosis (Acute) Cervical radiculopathy (Acute) Degenerative disc disease, cervical (Acute) Fissure in ano (Acute) Past Medical History Medical History Ascending aorta dilatation Chronic bilateral thoracic back pain Foot pain, bilateral Vitamin D deficiency Hyperlipidemia Plantar fasciitis Moderate persistent asthma Stage 3a chronic kidney disease Proteinuria Other cervical disc degeneration at C4-C5 level Asthma Pre-diabetes HTN (hypertension) Family History Family history of problems with anesthesia: No Surgical History Surgical History Fissure in ano H/O rectal sphincterotomy History of cholecystectomy Hx of tonsillectomy H/O: hysterectomy History of Problems with Anesthesia: No Social History Social History Alcohol intake: never Patient Tobacco Use Status: Never used Tobacco Use of substances other than those prescribed or required for medical reasons: No Are you DNR?: No Advance Directives: No Advance Directives Information Provided: Yes Recently lost weight without trying: No Nutrition Risks: No Nutritional Risk Patient : No Meds Allergies Allergy/AdvReac Type Severity Reaction Status Date / Time No Known Allergies Allergy Verified 02/12/24 14:59 Active Medications: Current Medications Albuterol Sulfate (Albuterol Sulfate (0.083%) 2.5 Mg/3 Ml Vial.Neb) 2.5 mg INHALE ONCE PRN PRN Reason: Shortness of Breath/Wheezing Lactated Ringer's (Lr) 1,000 mls @ 100 mls/hr IVCONT .Q10H МАРИЯ Last Admin: 05/03/24 07:44 Dose: 100 mls/hr Home Medications ?Medication ?Instructions ?Recorded ?Confirmed ?Last Taken ?Type amitriptyline 25 mg tablet 25 mg PO BEDTIME 02/16/23 02/28/23 Unknown History amlodipine 5 mg tablet 5 mg PO DAILY 02/16/23 02/28/23 Unknown History baclofen 10 mg tablet 10 mg PO TID 02/16/23 02/28/23 Unknown History losartan 100 mg tablet 100 mg PO DAILY 02/16/23 02/28/23 Unknown History metformin 500 mg tablet 500 mg PO DAILY 02/16/23 02/28/23 Unknown History omeprazole 20 mg capsule,delayed 20 mg PO DAILY 02/16/23 02/28/23 Unknown History release rosuvastatin 20 mg tablet 20 mg PO DAILY 02/16/23 02/28/23 Unknown History albuterol sulfate 90 mcg/actuation 2 puff inhalation Q4-6H PRN 11/28/23 Unknown History aerosol inhaler (ProAir HFA) cholecalciferol (vitamin D3) 125 125 mcg PO DAILY 11/28/23 Unknown History mcg (5,000 unit) capsule gabapentin 100 mg capsule 100 mg PO TID 11/28/23 Unknown History ketotifen fumarate 0.025 % (0.035 1 drp ophthalmic (eye) BID 11/28/23 Unknown History %) eye drops Exam Height,Weight and Vital Signs: Height 5 ft 5 in Weight 118.955 kg Airway Mallampati Class: III (receding chin) TM Dist: >3cm Neck ROM: Full Loose/Missing/Broken Teeth: No Heart: RRR Lungs: CTA Assessment and Plan Assessment Anesthesia Assessment: Anesthesia Plan Discussed and Chart Reviewed Final Anesthetic Review Family History of Problems with Anesthesia: No History of Problems with Anesthesia: No NPO: Yes ASA Class: III Final Preanesthetic Review: Meds/Allgs Chart Reviewed, Consent Obtained/Reviewed and Anes Risks/Benef Reviewed Patient Risk: Intermediate Procedure Risk: Low Anesthetic Plan Anesthetic Plan: MAC: Disposition: Standard PACU
--- NOTE | 2024-05-03 08:13 | MHC.SHP ---
Pre-Procedural Eval Section A - 24 Hr Update-Section A only Date of Service: 05/03/24 The patient is an INPATIENT: No Changes since office visit: Yes Patient answered all questions The patient has been examined within 24 hours of the surgical procedure. The History & Physical has been completed within 30 days and I have reviewed it.: No Section B - Complete if H&P > 30 days Chief Complaint: Intervertebral disc disorders with radiculopathy, Details of Present Illness: As above Relevant Family History (Specify if Yes): No Relevant Social History: None Present Medications: None Medical History: No relevant PMH History of Previous Operations: No relevant previous surgery Allergies: Allergies Allergy/AdvReac Type Severity Reaction Status Date / Time No Known Allergies Allergy Verified 02/12/24 14:59 Review of Systems Sugical H&P ROS: Negative: Cardiovascular, Respiratory, Neurological, Psychiatric, Hem-Onc, Allergic/Immunologic, Gastrointestinal, Integumentary, Endocrine and Eyes/Ears/Nose/Throat and Yes, Specify: Constitution (Severe morbid obesity), Genitourinary (CKD III) and Musculoskeletal (As above) Exam Surgical H&P Exam: Normal: HEENT, Normal: Heart, Normal: Lungs, Normal: Extremities, Normal: Skin and Normal: Neurological and Significant Findings: Abdomen (enlarged 2 to i/a & s/q fat) Plan Diagnosis/Plan: Unchanged I have reviewed the history and physical and performed a pertinent physical examination on my patient. No changes have occurred unless specified. Time Spent With Patient Time: Total time managing care of this patient today ___5_ minutes.
--- NOTE | 2024-05-03 08:57 | PM.OP ---
Brief Operative Note Date of Service: 05/03/24 Pre-op diagnosis: Disc degeneration disease with radiculopathy Post-op diagnosis: same Procedure: Bilateral transforaminal epidural steroid injection L5-S1. Surgeon: Scott Valdes MD Was an Target Developer used for this Procedure?: No Estimated blood loss (mL): 0 Condition: stable Disposition: PACU
[2024-05-03 09:00] VITALS: BP 142/74; PULSE 78; RESP 16; TEMP 36.6; O2SAT 97
--- NOTE | 2024-05-03 09:00 | P.BOP_ITS ---
Brief Operative Note Date of Service: 05/03/24 Pre-op diagnosis: disc degeneration with radiculopathy Post-op diagnosis: same Procedure: bilateral transforaminal epidural steroid injection L5-S1, Surgeon: Scott Valdes MD Anesthesia: MAC Was an Virtual Customer Assistant used for this Procedure?: No Estimated blood loss (mL): 0 Condition: stable Disposition: PACU
--- NOTE | 2024-05-03 09:02 | W.PM.OPN ---
Operative Note Operative Note Date of Service: 05/03/24 Narrative: Bilateral transforaminal epidural steroid injection L5-S1. The patient came to the operating room after obtaining informed consent. The risk of the procedure were delineated as risk of bleeding infection peripheral nerve damage epidural hematoma spinal cord damage epidural abscess spinal cord damage and headache. The patient was positioned on the operating table prone with pillow under the abdomen. Time-out was performed delineating correct side and site of the procedure date of of the patient need of antibiotics risk of fire the patient participated in time-out procedure. [employer] monitors were applied and patient was minimally sedated and was able to respond to my questions throughout the procedure. The patient's lower back was prepped with ChloraPrep and draped with sterile utility towels. C-arm was brought over the operating field and sq picture of L5 vertebra was delineated on the screen. The position of L5 vertebra was calculated starting from the T12 the last rib vertebra. After that C-arm was tilted 30 degrees to the right to demonstrate most prominent image of the pedicle of L5 on the right. 3 mm below the lowest point of the pedicle projection to the skin was chosen starting point of the injection. 22 gauge 5 in needle was inserted through the skin and started to advance to foramina on anterior posterior and lateral as well oblique views. The needle was advanced in tunnel vision fashion. One on lateral view the needle entered the most posterior and superior portion of the foramen injection of the contrast was performed delineating anterior epidural space of the contrast. After that treatment solution containing 3 mL of preservative-free lidocaine 1% mixed with Kenalog 40 mg was injected into the needle. Upon completion of the injection the procedure was repeated on the left side in mirroring fashion. Upon completion of the injections sterile Band-Aids were applied. The patient tolerated the procedure well he was awakened and taken out of the OR to the recovery room where she recovered uneventfully.
[2024-05-03 09:11] LABS: Glucose, Whole Blood 112 mg/dL (60-115)
[2024-05-03 09:15] VITALS: BP 152/88; PULSE 73; RESP 16; O2SAT 97
[2024-05-03 09:30] VITALS: BP 150/85; PULSE 69; RESP 16; TEMP 36.7; O2SAT 97
== END 2024-05-03 09:57 | disposition home or self-care (01) ==
PROVIDERS: PCP Internal Medicine Geriatric Medicine; Visit Provider Anesthesiology
PROC: 3E0R33Z Introduction of Anti-inflammatory into Spinal Canal, Percutaneous Approach (ICD-10-PCS; CPT 64483; principal; 2024-05-03 08:40)
DX: M51.16 Intervertebral disc disorders with radiculopathy, lumbar region (principal); Z98.890 Other specified postprocedural states; M53.3 Sacrococcygeal disorders, not elsewhere classified; I12.9 Hypertensive chronic kidney disease with stage 1 through stage 4 chronic kidney disease, or unspecified chronic kidney disease; N18.31 Chronic kidney disease, stage 3a; R73.03 Prediabetes; E78.5 Hyperlipidemia, unspecified; J45.40 Moderate persistent asthma, uncomplicated; E66.01 Morbid (severe) obesity due to excess calories; Z68.41 Body mass index [BMI] 40.0-44.9, adult; G89.29 Other chronic pain
CPT/HCPCS: 64483; 82947; J2003; J2250; J3010; J3301; Q9967

== ENCOUNTER → 2024-05-03 07:00 | Outpatient (BNV) | payer MEDICAID, SELFPAY | PROVIDERS: PCP Internal Medicine Geriatric Medicine; Visit Provider Anesthesiology | DX: M51.16 Intervertebral disc disorders with radiculopathy, lumbar region (principal) | CPT/HCPCS: 64483 ==

== ENCOUNTER 2024-05-12 14:48 | Emergency (ER) | payer MEDICAID, SELFPAY ==
--- NOTE | ~2024-05-12 | CT_ITS ---
EXAMINATION: CT HEAD WITHOUT CONTRAST CLINICAL INFORMATION: Headache post cortisone injection, rule out intracranial hemorrhage COMPARISON: None available. TECHNIQUE: Contiguous axial imaging was performed from the skull base to vertex without intravenous administration of contrast. This CT examination was performed using dose optimization techniques as appropriate, variously including the following: *Automated exposure control *Adjustment of mA and/or kV according to patient size (this includes techniques or standardized protocols for targeted exams where dose is matched to indication/reason for exam; i.e. extremities or head) *Use of iterative reconstruction technique DLP: 740 mGy-cm RESULTS: There is no evidence of acute intracranial hemorrhage, acute large vessel infarct, midline shift or mass effect. The polk-white differentiation is preserved. The ventricles and sulci are within normal limits in size and configuration. There is no evidence of hydrocephalus. There are no extraaxial collections. Osseous structures are intact. Paranasal sinuses and mastoid air cells are well aerated. CT/CT head/brain wo IV con IMPRESSION: No acute intracranial pathology. Electronically signed by: Lacey Scott MD 05/12/2024 04:36 PM EST
[2024-05-12 14:52] VITALS: BP 178/96; PULSE 87; RESP 18; TEMP 36.1; O2SAT 98; BMI 42.8
--- NOTE | 2024-05-12 14:52 | ED_ITS ---
HPI - General Adult General Chief complaint: General Medical Stated complaint: [id number] Time Seen by Provider: 05/12/24 15:17 Source: patient Mode of arrival: ambulatory Limitations: no limitations History of Present Illness ED Provider: Dee Dee Suarez APRN HPI narrative: 49yo female with PMH DM, HTN, HLD, asthma, depression who presents with complaints of 9 days of acute on chronic back pain, generalized weakness, posterior constant dull NAVARRETE x 9 days. Patient reports this began after she had a cortisone injection by pain management 05/03 in her L5-S1. Headache is unrelieved with Tylenol at home. No associated vision changes, vomiting, photophobia or phonophobia. No change in headache with position changes. No numbness, tingling, weakness in the upper or lower extremities. No numbness in the groin. No bowel or bladder incontinence. No fevers or chills She spoke to the pain management office last week and had an outpatient MRI of her head last night at 18:40 at [facility] ([address] [place] [address]). She does not know the results. Related Data Home Medications ?Medication ?Instructions ?Recorded ?Confirmed amitriptyline 25 mg tablet 25 mg PO BEDTIME 02/16/23 02/28/23 amlodipine 5 mg tablet 5 mg PO DAILY 02/16/23 02/28/23 baclofen 10 mg tablet 10 mg PO TID 02/16/23 02/28/23 losartan 100 mg tablet 100 mg PO DAILY 02/16/23 02/28/23 metformin 500 mg tablet 500 mg PO DAILY 02/16/23 02/28/23 omeprazole 20 mg capsule,delayed 20 mg PO DAILY 02/16/23 02/28/23 release rosuvastatin 20 mg tablet 20 mg PO DAILY 02/16/23 02/28/23 albuterol sulfate 90 mcg/actuation 2 puff inhalation Q4-6H PRN 11/28/23 aerosol inhaler (ProAir HFA) cholecalciferol (vitamin D3) 125 125 mcg PO DAILY 11/28/23 mcg (5,000 unit) capsule gabapentin 100 mg capsule 100 mg PO TID 11/28/23 ketotifen fumarate 0.025 % (0.035 1 drp ophthalmic (eye) BID 11/28/23 %) eye drops Previous Rx's ?Medication ?Instructions ?Recorded naloxone 4 mg/actuation nasal 4 mg intranasal Q2M PRN opioid 02/12/24 spray (Narcan) overdose #2 ea oxycodone 5 mg tablet 5 mg PO BID PRN pain (scale score 03/07/24 7-10) 10 days #20 tabs Allergies Allergy/AdvReac Type Severity Reaction Status Date / Time No Known Allergies Allergy Verified 05/12/24 14:54 Review of Systems 2 Review of Systems: Yes all other systems are reviewed and are negative Constitutional: Constitutional: Reports no additional constitutional complaints, Denies body ache(s), Denies chills, Denies fever(s), Reports headache(s), Denies night sweats, Reports weakness and Denies weight loss Eyes: Eyes: Reports no additional eye complaints and Denies change in vision ENT: Reports system reviewed and no additional complaints, except as documented, Denies dizziness, Reports headache(s), Denies nasal congestion, Denies nasal discharge and Denies neck pain Cardiovascular: Cardiovascular: Reports no additional cardiovascular complaints, Denies chest pain, Denies leg edema and Denies dyspnea Respiratory: Respiratory: Reports no additional respiratory complaints, Denies cough and Denies dyspnea Gastrointestinal: Gastrointestinal: Reports no additional gastrointestinal complaints, Denies abdominal pain, Denies diarrhea, Denies nausea and Denies vomiting Genitourinary: Genitourinary: Reports no additional female genitourinary complaints and Denies urinary incontinence Musculoskeletal: Musculoskeletal: Reports no additional musculoskeletal complaints, Denies back pain, Denies arthralgias, Denies joint swelling, Denies neck pain, Denies numbness and Denies tingling Integumentary/Breasts: Skin/Breast: Reports system reviewed and no additional complaints, except as docu and Denies rash Neurologic: Reports system reviewed and no additional complaints, except as documented, Denies Abnormal speech present, Denies dizziness, Reports headache(s), Denies numbness, Denies tingling and Reports weakness PMFSH Past Medical History Attestation statement: The following information was validated with the patient. Source: old records reviewed and nursing notes reviewed Medical History Ascending aorta dilatation Chronic bilateral thoracic back pain Foot pain, bilateral Vitamin D deficiency Hyperlipidemia Plantar fasciitis Moderate persistent asthma Stage 3a chronic kidney disease Proteinuria Other cervical disc degeneration at C4-C5 level Asthma Pre-diabetes HTN (hypertension) Surgical History Fissure in ano H/O rectal sphincterotomy History of cholecystectomy Hx of tonsillectomy H/O: hysterectomy Social History Social History Alcohol intake: never Patient Tobacco Use Status: Never used Tobacco Advance Directives: No Advance Directives Information Provided: No Physical Exam ED Vital Signs: Vital Signs - 24 hr 05/12/24 14:52 05/12/24 18:00 Temperature 97 F 97.9 F Pulse Rate 87 72 Respiratory Rate 18 18 Blood Pressure 178/96 H 103/45 L Pulse Oximetry 98 96 Oxygen Delivery Method Room Air Room Air BMI result Body Mass Index 42.8 Const General: cooperative, healthy appearing, comfortable and no acute distress Orientation/consciousness: patient oriented x3 Limitations: no limitations HENMT Head: Yes normal to inspection Ears: hearing grossly normal bilaterally and TM's normal bilaterally General nose exam: Normal external nose present Face and sinus: Yes normal facial exam Mouth: Normal oral and palatal mucosa present Throat: Yes posterior oropharynx normal Eyes General: appearance normal, both eyes and all related structures Pupils: Equal, round and reactive pupils present Neck Neck: Yes normal visual inspection, Yes full ROM, Yes no lymphadenopathy and Yes no meningeal signs Chest Chest palpation & inspection: normal inspection of the chest Resp Effort & Inspection: normal respiratory effort Auscultation: clear to auscultation bilaterally Cardio Rate: regular rate Rhythm: regular rhythm Peripheral pulses: Peripheral pulses 2+ throughout GI Inspection: Yes normal to inspection Palpation (GI): Soft to palpation and nontender Auscultation: normal bowel sounds Back/Spine/Pelvis Other: TTP to lumbar mid spine with no step offs or deformities Thoracic/Lumbar Spine: thoracic and lumbar spine normal to inspection Skin General skin exam: no rashes or lesions noted Neuro Other: The patient has 5/5 strength in her upper and lower extremities, however does elicit pain to dorsiflexion/plantar flexion. No significant sensational deficits. Reflexes are 2+ intact. (-) bilateral straight leg raise. (-) clonus. (-) Last's. General: patient oriented x3, moves all extremities, no meningeal signs, no focal motor deficits and normal sensation to monofilament Cranial nerves: Yes CN's II-XII intact bilaterally, Yes Equal, round and reactive pupils present, Yes Bilaterally intact EOM present, Yes Nystagmus not present, Yes Normal facial strength present and Yes Midline tongue present Cognition (Neuro): normal cognition Speech: No Abnormal speech present Gait exam (Neuro): Normal gait present Motor exam (neuro): 5/5 motor strength present throughout Sensory Exam: Normal double simultaneous stimulation for sensation Deep tendon reflexes (DTR's): Right patellar reflex intensity grade: 2+ and Left patellar reflex intensity grade: 2+ Extrem General: Yes normal to inspection Course Course Course Narrative: RME performed by Mariangel Patel PA-C. Patient is a 49 year old assigned female at presenting to the emergency department with headaches and weakness. Patient states on 05/03/2024 she had steroid shots into the spine from the pain management group and now she is having headaches and weakness. Detailed physical exam and review of systems are deferred to the zipper setter chainstitch. Labs and swabs ordered. Patient placed back in the waiting room pending room availability and results. Reevaluation(s) Reevaluation #1: CT head shows no acute finding. Patient reports pain is improving. I will recommend that she follow up outpatient with her pain management doctor and with her MRI results. I did review worrisome signs and symptoms of when to return to the emergency room. Comfortable plan for discharge home. Medications Administered Discontinued Medications Generic Name Dose Route Start Last Admin Trade Name Freq PRN Reason Stop Dose Admin Acetaminophen/Butalbital/Caffeine 2 tab 05/12/24 16:06 05/12/24 17:10 Butalb/Acetamin/Caff 50/325/40 Tablet PO 05/12/24 16:07 2 tab ONCE ONE Administration Diphenhydramine HCl 25 mg 05/12/24 16:06 05/12/24 17:15 Diphenhydramine Hcl 50 Mg/Ml Vial IVPUSH 05/12/24 16:07 25 mg ONCE ONE Administration Sodium Chloride 1,000 mls @ 999 mls/hr 05/12/24 16:15 05/12/24 18:22 Ns IV 05/12/24 17:15 Infused .Q1H1M МАРИЯ Infusion Metoclopramide HCl 10 mg 05/12/24 16:06 05/12/24 17:15 Metoclopramide Hcl 10 Mg/2 Ml Vial IVPUSH 05/12/24 16:07 10 mg ONCE ONE Administration Medical Decision Making Medical Decision Making [facility] Narrative: 49yo female with PMH DM, HTN, HLD, asthma, depression who presents with complaints of 9 days of acute on chronic back pain, generalized weakness, posterior constant dull NAVARRETE x 9 days. Patient reports this began after she had a cortisone injection by pain management 05/03 in her L5-S1. Headache is unrelieved with Tylenol at home. No associated vision changes, vomiting, photophobia or phonophobia. No change in headache with position changes. No numbness, tingling, weakness in the upper or lower extremities. No numbness in the groin. No bowel or bladder incontinence. No fevers or chills Normal neuro exam with no focal findings. No neurological deficits or red flag symptoms. Reviewed lab, viral testing from triage (negative). We have no way of getting her MRI results as [facility] is closed and I am sure her report is not read (outpatient in less then 12 hrs). Headache can occur post lumbar injection but I do believe we should rule out a SAH. I could consider a post puncture headache however seems atypical with no effects with position changes. She may have a migraine. Doubt meningitis/encephalitis with no meningeal signs, no fevers. I will order a CT head. Will place PIV and give IVF, reglan, benadryl and fiorcet PO Differential Diagnosis Differential Diagnoses: The differential diagnosis associated with the presentation includes See discussion above Admission/Observation Consideration of admission/observation: Escalation of care including admission/observation considered CT head negative, improvement of symptoms with IVF/reglan/benadryl and firocet with low suspicion for post puncture NAVARRETE requiring blood patch with anesthesia consultation. Will discharge home to follow-up outpatient with providers and MRI results and with strict return precautions. Lab Data [facility] Lab Attestation statement: I reviewed the patient's lab results. 05/12/24 15:34 05/12/24 15:34 Labs: Lab Results 05/12/24 05/12/24 Range/Units 15:29 15:34 WBC 10.1 (4.8-10.8) X10*3/uL RBC 4.41 (4.20-5.50) X10*6/uL Hgb 13.8 (12.0-16.0) g/dl Hct 40.8 (37.0-47.0) % MCV 92.5 (80.0-98.0) fL MCH 31.3 (27.0-33.0) pg MCHC 33.8 (31.0-35.0) g/dl RDW 13.0 (11.0-16.0) % Plt Count 309 (160-400) X10*3/uL MPV 10.2 (9.4-12.3) fL Immature Gran % (Auto) 0.4 (0.0-0.4) % Neut % (Auto) 62.6 (45-73) % Lymph % (Auto) 29.2 (20-40) % Overton % (Auto) 6.8 (2-11) % Eos % (Auto) 0.3 (0-4) % Baso % (Auto) 0.7 (0-2) % Lymph # (Auto) 2.9 (1.2-4.9) X10*3/uL Overton # (Auto) 0.7 (0.1-1.2) X10*3/uL Eos # (Auto) 0.0 (0.0-0.4) X10*3/uL Baso # (Auto) 0.1 (0.0-0.2) X10*3/uL Abs Immat Gran (auto) 0.04 H (0.00-0.03) X10*3/uL Absolute Neuts (auto) 6.3 (2.0-8.3) x10*3/uL Absolute Nucleated RBC 0.000 (0.0-0.012) X10*3/uL Nucleated RBC % (auto) 0.0 (0.0-0.2) /100WBC Sodium 143 (135-145) mmol/L Potassium 4.4 (3.3-5.1) mmol/L Chloride 102 (96-108) mmol/L Carbon Dioxide 30 H (22-29) mmol/L Anion Gap 15 (12-20) BUN 17 H (9-16) mg/dL Creatinine 1.32 (0.5-1.4) mg/dL Estim Creat Clear Calc 65.0 Estimated GFR 43 Random Glucose 116 H (60-115) mg/dL Calcium 9.7 (8.4-10.2) mg/dL Magnesium 1.8 (1.6-2.6) mg/dL Total Bilirubin 0.5 (0.0-1.0) mg/dL AST 30 (5-31) U/L ALT 37 H (0-31) U/L Alkaline Phosphatase 73 (39-117) U/L Total Protein 7.6 (6.5-8.0) g/dL Albumin 3.9 (3.5-5.0) g/dL Influenza Type A (PCR) NEGATIVE (Negative) Influenza Type B (PCR) NEGATIVE (Negative) RSV RNA Qual (PCR) NEGATIVE (Negative) SARS-CoV-2 RNA (RT-PCR) NEGATIVE (Negative) Independent Interpretation I performed an independent interpretation of an: CT Scan Interpretation: I independently viewed the CT scan agree with the radiology report Radiology Impression Discussion of test interpretation with radiology: I have reviewed the radiologist's reading. Radiologist Impression: [place] [id number] CT Scan Report Signed Patient: Paula Mendez MR#: [id number] : 1975 Acct:[id number] Age/Sex: 49 / F ADM Date: 05/12/24 Loc: .ED Attending Dr: Ordering Physician: Dee Dee Joshi NP Date of Service: 05/12/24 Procedure(s): CT head/brain wo IV con Accession Number(s): [id number] cc: Susu Gavin MD; Dee Dee Joshi NP~ EXAMINATION: CT HEAD WITHOUT CONTRAST CLINICAL INFORMATION: Headache post cortisone injection, rule out intracranial hemorrhage COMPARISON: None available. TECHNIQUE: Contiguous axial imaging was performed from the skull base to vertex without intravenous administration of contrast. This CT examination was performed using dose optimization techniques as appropriate, variously including the following: *Automated exposure control *Adjustment of mA and/or kV according to patient size (this includes techniques or standardized protocols for targeted exams where dose is matched to indication/reason for exam; i.e. extremities or head) *Use of iterative reconstruction technique DLP: 740 mGy-cm RESULTS: There is no evidence of acute intracranial hemorrhage, acute large vessel infarct, midline shift or mass effect. The polk-white differentiation is preserved. The ventricles and sulci are within normal limits in size and configuration. There is no evidence of hydrocephalus. There are no extraaxial collections. Osseous structures are intact. Paranasal sinuses and mastoid air cells are well aerated. CT/CT head/brain wo IV con IMPRESSION: No acute intracranial pathology. Electronically signed by: Lacey Scott MD 05/12/2024 04:36 PM [facility] Independent Historian Clinical information obtained from an independent historian. History obtained from or confirmed by: Friend External Record Review External record reviewed: Office record Tests considered The following testing was considered but not selected: see discussion above Discharge Plan Discharge Clinical Impression: Headache, Chronic back pain Patient Disposition: Home, Self-Care Instructions: Acute Headache (DC), Chronic Back Pain (DC) Additional Instructions: Your lab work is normal Your testing for flu, covid and rsv are negative Your CT scan of your head is normal You need to follow-up with pain management for the results of your MRI Continue home medicatins Prescriptions: No Action oxycodone 5 mg tablet 5 mg PO BID PRN (Reason: pain (scale score 7-10)) 10 Days Qty: 20 0RF Rx Instructions: Partial Fill upon patient request. amlodipine 5 mg tablet 5 mg PO DAILY omeprazole 20 mg capsule,delayed release(DR/EC) 20 mg PO DAILY baclofen 10 mg tablet 10 mg PO TID metformin 500 mg tablet 500 mg PO DAILY amitriptyline 25 mg tablet 25 mg PO BEDTIME losartan 100 mg tablet 100 mg PO DAILY rosuvastatin 20 mg tablet 20 mg PO DAILY gabapentin 100 mg capsule 100 mg PO TID cholecalciferol (vitamin D3) 125 mcg (5,000 unit) capsule 125 mcg PO DAILY albuterol sulfate [ProAir HFA] 90 mcg/actuation HFA aerosol inhaler 2 puff inhalation Q4-6H PRN ketotifen fumarate 0.025 % (0.035 %) drops 1 drp ophthalmic (eye) BID naloxone [Narcan] 4 mg/actuation spray,non-aerosol 4 mg intranasal Q2M PRN (Reason: opioid overdose) Qty: 2 0RF Rx Instructions: spray 1 dose into ONE nostril; alternate nostrils w each dose until help arrives Referrals: Sarah Cook FNP [Nurse Practitioner] - 1 week Print Language: Japanese
[2024-05-12 15:39] LABS: MANUAL DIFF FLAG NO
[2024-05-12 15:40] LABS: Basophils Absolute Auto 0.1 X10*3/uL (0.0-0.2); Basophils Percent Auto 0.7 % (0-2); Eosinophils Percent Auto 0.3 % (0-4); Hematocrit 40.8 % (37.0-47.0); Hemoglobin 13.8 g/dl (12.0-16.0); Imm Gran Abs Auto 0.04 X10*3/uL (0.00-0.03); Imm Gran Pct Auto 0.4 % (0.0-0.4); Lymphocytes Absolute Auto 2.9 X10*3/uL (1.2-4.9); Lymphocytes Percent Auto 29.2 % (20-40); Mean Corpuscular HGB Conc 33.8 g/dl (31.0-35.0); Mean Corpuscular Hemoglobin 31.3 pg (27.0-33.0); Mean Corpuscular Volume 92.5 fL (80.0-98.0); Mean Platelet Volume 10.2 fL (9.4-12.3); Monocytes Absolute Auto 0.7 X10*3/uL (0.1-1.2); Monocytes Percent Auto 6.8 % (2-11); Neutrophils Absolute Auto 6.3 x10*3/uL (2.0-8.3); Neutrophils Percent Auto 62.6 % (45-73); Platelet Count 309 X10*3/uL (160-400); Red Blood Count 4.41 X10*6/uL (4.20-5.50); White Blood Count 10.1 X10*3/uL (4.8-10.8)
[2024-05-12 15:53] LABS: Alanine Aminotransferase 37 U/L (0-31); Albumin Level 3.9 g/dL (3.5-5.0); Alkaline Phosphatase 73 U/L (39-117); Anion Gap 15 (12-20); Aspartate Amino Transferase 30 U/L (5-31); Bilirubin Total 0.5 mg/dL (0.0-1.0); Blood Urea Nitrogen 17 mg/dL (9-16); Calcium 9.7 mg/dL (8.4-10.2); Carbon Dioxide 30 mmol/L (22-29); Chloride 102 mmol/L (96-108); Estimated Glomerular Filt Rate 43; Glucose Random 116 mg/dL (60-115); Magnesium 1.8 mg/dL (1.6-2.6); Potassium 4.4 mmol/L (3.3-5.1); Sodium 143 mmol/L (135-145); Total Protein 7.6 g/dL (6.5-8.0)
[2024-05-12 16:21] LABS: Influenza A PCR NEGATIVE (Negative); Influenza B PCR NEGATIVE (Negative); Resp Syncy Virus RNA Qual PCR NEGATIVE (Negative); SARS COV2 PCR INHOUSE NEGATIVE (Negative)
[2024-05-12] MEDS: 0.9 % Sodium Chloride 1,000 ML 999 ML IV (16:48)
[2024-05-12] MEDS: Butalb/Acetamin/Caff 50/325/40 TABLET 2 TAB PO (17:10)
[2024-05-12] MEDS: Metoclopramide HCl 10 MG/2 ML VIAL IVPUSH (17:15)
[2024-05-12] MEDS: diphenhydrAMINE HCL 50 MG/ML VIAL 25 MG IVPUSH (17:15)
[2024-05-12 18:00] VITALS: BP 103/45; PULSE 72; RESP 18; TEMP 36.6; O2SAT 96
[2024-05-12 18:29] VITALS: BP 103/45; PULSE 72; RESP 18; TEMP 36.6; O2SAT 96
== END 2024-05-12 18:36 | disposition home or self-care (01) ==
PROVIDERS: Physician Assistant Medical; Emergency Provider Internal Medicine; PCP Family Medicine
DX: G43.909 Migraine, unspecified, not intractable, without status migrainosus (principal); M54.50 Low back pain, unspecified; R07.89 Other chest pain; R53.1 Weakness; Z03.818 Encounter for observation for suspected exposure to other biological agents ruled out; Z79.899 Other long term (current) drug therapy
CPT/HCPCS: 0241U; 70450; 80053; 83735; 85025; 99284; J1200; J2765

== ENCOUNTER 2024-05-16 14:40 | Outpatient (AMB) | payer MEDICAID, SELFPAY ==
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
[2024-05-16 14:52] VITALS: BP 177/82; PULSE 87; O2SAT 98; BMI 43.6
== END 2024-05-16 15:23 | disposition home or self-care (01) ==
PROVIDERS: PCP Family Medicine; Visit Provider Nurse Practitioner Family
DX: M51.16 Intervertebral disc disorders with radiculopathy, lumbar region (principal); M53.3 Sacrococcygeal disorders, not elsewhere classified; G89.29 Other chronic pain; M54.50 Low back pain, unspecified; M62.838 Other muscle spasm; M47.817 Spondylosis without myelopathy or radiculopathy, lumbosacral region; E66.01 Morbid (severe) obesity due to excess calories; Z68.41 Body mass index [BMI] 40.0-44.9, adult
CPT/HCPCS: 99214

== ENCOUNTER → 2024-05-16 14:40 | Outpatient (BNVA) | payer MEDICAID, SELFPAY | PROVIDERS: PCP Family Medicine; Visit Provider Nurse Practitioner Family | DX: M54.50 Low back pain, unspecified (principal); M51.16 Intervertebral disc disorders with radiculopathy, lumbar region; M47.817 Spondylosis without myelopathy or radiculopathy, lumbosacral region; M53.3 Sacrococcygeal disorders, not elsewhere classified; G89.29 Other chronic pain; M62.838 Other muscle spasm; E66.01 Morbid (severe) obesity due to excess calories; Z68.41 Body mass index [BMI] 40.0-44.9, adult | CPT/HCPCS: 99212 ==

== ENCOUNTER 2024-05-20 14:42 | Outpatient (AMB) | payer MEDICAID, SELFPAY ==
--- NOTE | 2024-05-20 15:00 | HO.SPINEOV ---
Intake Visit Reasons: worsening low back pain Intake Note: Ms. Mendez is here today c/o worsening low back pain. Label Cutter Required: No Allergies No Known Allergies Allergy (Verified 05/16/24 14:52) Assessment & Plan Assessment & Plan (1) Lumbosacral spondylosis: Code(s): M47.817 - Spondylosis without myelopathy or radiculopathy, lumbosacral region Category: Medical Plan Mrs Mendez followed up with us today. 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 She had a postprocedure MRI which did not show any signs of infection or CSF leak. Her pain continues to be a 20/10. Her pain is diffuse in her back in her lower sacrum radiating down both of her legs into her calves. I reviewed her MRI again, and it shows she has just very mild disc degeneration with some slight crowding of the lateral recess at L4-5 but really there is nothing much here surgical. I wonder if she has a chronic pain syndrome that would respond to a spinal cord stimulator. Total amount of time spent in this visit was 20 minutes in discussion of symptoms, lumbar imaging results and subsequent plan of care Don Heredia MD,PhD [facility] Coding Level of Care Code Est Pt Level 3 (13569) Diagnoses Lumbosacral spondylosis M47.817
== END 2024-05-20 15:33 | disposition home or self-care (01) ==
PROVIDERS: PCP Family Medicine; Visit Provider Physician Assistant
DX: M47.817 Spondylosis without myelopathy or radiculopathy, lumbosacral region (principal)
CPT/HCPCS: 99213

== ENCOUNTER → 2024-05-20 14:42 | Outpatient (BNVA) | payer MEDICAID, SELFPAY | PROVIDERS: PCP Family Medicine; Visit Provider Physician Assistant | DX: M47.817 Spondylosis without myelopathy or radiculopathy, lumbosacral region (principal) | CPT/HCPCS: 99212 ==

== ENCOUNTER 2024-08-26 14:32 | Emergency (ER) | payer MEDICAID, SELFPAY ==
--- NOTE | ~2024-08-26 | XR_ITS ---
EXAMINATION: XR CHEST CLINICAL INFORMATION: cough, chest pain COMPARISON: None available. TECHNIQUE: 2 views of the chest were obtained. FINDINGS: Elevated right hemidiaphragm. The cardiac, hilar, and mediastinal contours are normal. The lungs are clear bilaterally. There is no pneumothorax or pleural effusion. There is no focal osseous or soft tissue abnormality. There are cholecystectomy clips. XR/XR chest 2V IMPRESSION: No active pulmonary disease. Electronically signed by: Bryant Lantigua MD 08/26/2024 04:11 PM WARD
[2024-08-26 15:38] VITALS: BP 155/91; PULSE 74; RESP 16; TEMP 36.6; O2SAT 97; BMI 42.0
--- NOTE | 2024-08-26 16:21 | ED_ITS ---
HPI - URI/Sore Throat General Chief Complaint: Upper Respiratory Symptoms Stated Complaint: lost voice Time Seen by Provider: 08/26/24 17:50 Source: patient Mode of arrival: ambulatory Limitations: no limitations History of Present Illness ED Provider: BETY WILEY PA-C HPI Narrative: 49-year-old female with pmhx significant for DM, HTN, HLD, asthma, depression presents to the ED today for evaluation of hoarse voice, sore throat and dry cough x2 days. No known sick contacts. Denies fever, chills, odynophagia, dysphagia, sob, wheezing, chest pain. No recent travel/ long car rides. Related Data Home Medications ?Medication ?Instructions ?Recorded ?Confirmed amitriptyline 25 mg tablet 25 mg PO BEDTIME 02/16/23 02/28/23 amlodipine 5 mg tablet 5 mg PO DAILY 02/16/23 02/28/23 baclofen 10 mg tablet 10 mg PO TID 02/16/23 02/28/23 losartan 100 mg tablet 100 mg PO DAILY 02/16/23 02/28/23 metformin 500 mg tablet 500 mg PO DAILY 02/16/23 02/28/23 omeprazole 20 mg capsule,delayed 20 mg PO DAILY 02/16/23 02/28/23 release rosuvastatin 20 mg tablet 20 mg PO DAILY 02/16/23 02/28/23 albuterol sulfate 90 mcg/actuation 2 puff inhalation Q4-6H PRN 11/28/23 aerosol inhaler (ProAir HFA) cholecalciferol (vitamin D3) 125 125 mcg PO DAILY 11/28/23 mcg (5,000 unit) capsule gabapentin 100 mg capsule 100 mg PO TID 11/28/23 ketotifen fumarate 0.025 % (0.035 1 drp ophthalmic (eye) BID 11/28/23 %) eye drops Previous Rx's ?Medication ?Instructions ?Recorded naloxone 4 mg/actuation nasal 4 mg intranasal Q2M PRN opioid 02/12/24 spray (Narcan) overdose #2 ea oxycodone 5 mg tablet 5 mg PO Q8H PRN pain (scale score 11 7-10) 7 days #21 tabs benzocaine 15 mg-menthol 2.6 mg 1 prieto mucous membrane Q2-4H PRN 08/26/24 lozenges (Cepacol Sore Throat sore throat #16 ea (benzocaine-menthol)) benzonatate 100 mg capsule 100 mg PO BID PRN cough #14 caps 08/26/24 Allergies Allergy/AdvReac Type Severity Reaction Status Date / Time No Known Allergies Allergy Verified 08/26/24 15:40 Review of Systems Review of Systems: Yes all other systems are reviewed and are negative PMFSH Past Medical History Attestation statement: The following information was validated with the patient. Source: old records reviewed and nursing notes reviewed Medical History Ascending aorta dilatation Chronic bilateral thoracic back pain Foot pain, bilateral Vitamin D deficiency Hyperlipidemia Plantar fasciitis Moderate persistent asthma Stage 3a chronic kidney disease Proteinuria Other cervical disc degeneration at C4-C5 level Asthma Pre-diabetes HTN (hypertension) Surgical History Fissure in ano H/O rectal sphincterotomy History of cholecystectomy Hx of tonsillectomy H/O: hysterectomy Social History Social History Alcohol intake: never Patient Tobacco Use Status: Never used Tobacco Advance Directives: No Advance Directives Information Provided: Yes Physical Exam Vital Signs: Vital Signs: Last Vital Signs Temp 97.8 F 08/26/24 15:38 Pulse 74 08/26/24 15:38 Resp 16 08/26/24 15:38 BP 155/91 H 08/26/24 15:38 Pulse Ox 97 08/26/24 15:38 O2 Del Method Room Air 08/26/24 15:38 BMI result Body Mass Index 42.0 Hypertensive, vitals otherwise WNL. Afebrile General: Well appearing, in no acute distress. Skin: Warm, dry, intact. No rashes or lesions. Head: Normocephalic, atraumatic. EENT: Hearing is intact b/l. Conjunctiva clear. Sclera is anicteric. PERRLA. EOM intact. Posterior oropharynx without erythema or edema. No tonsillar exudates. No peritonsillar masses. Uvula midline. Controlling secretions speaking in complete sentences Neck: Supple without LAD Cardiac: Chest wall symmetric. RRR Lungs: Normal respiratory effort without accessory muscle use. CTA bilaterally. No rales, rhonchi, or wheezes.? Ext: Upper and lower extremities atraumatic, without tenderness, deformity, swelling or erythema Neuro: AOx3. Normal speech. Ambulating with steady gait. Psych: Appropriate mood and affect. Responds appropriately to questions. Course Course Course Narrative: This is a Rapid Medical Examination (RME) performed by Tien Wiley PA-C in triage. Full HPI, ROS, assessment and treatment plan per primary provider in the Main ED. 49 yo female here for eval of lost voice/ cough x2 days Plan: viral swabs, cxr Reevaluation(s) Reevaluation #1: Negative COVID, flu, RSV, strep throat. Chest x-ray does not demonstrate pneumonia. Presentation consistent with a viral laryngitis. Will treat symptomatically. Cepacol throat lozenges and Tessalon Perles sent to pharmacy for treatment. Patient has remained stable throughout ED visit today. Discussed worrisome signs and symptoms and when to return to the ED. All questions answered at this time. Patient is agreeable with disposition and stable for discharge. Medical Decision Making Medical Decision Making [facility] Narrative: 49-year-old female with pmhx significant for DM, HTN, HLD, asthma, depression presents to the ED today for evaluation of hoarse voice, sore throat and dry cough x2 days. Vital signs stable. Afebrile. on exam, posterior oropharynx without erythema or edema. No tonsillar exudates. No peritonsillar masses. Uvula midline. Controlling secretions and speaking in complete sentences. Lungs are CTA bilaterally without adventitious breath sounds. Differential diagnosis includes viral syndrome, laryngitis, pneumonia, bronchitis, strep throat. Unlikely mono, [employer], retropharyngeal abscess, epiglottitis. Plan for viral/strep swabs, chest x-ray and re-evaluation Differential Diagnosis Differential Diagnoses: The differential diagnosis associated with the presentation includes As above Admission/Observation Not indicated Lab Data MDM Lab Attestation statement: I reviewed the patient's lab results. As above Labs: Lab Results 08/26/24 Range/Units 16:08 Influenza Type A (PCR) NEGATIVE (Negative) Influenza Type B (PCR) NEGATIVE (Negative) RSV RNA Qual (PCR) NEGATIVE (Negative) SARS-CoV-2 RNA (RT-PCR) NEGATIVE (Negative) S. pyogenes GrpA NERI Negative (Negative) Independent Interpretation I performed an independent interpretation of an: Plain X-Ray Interpretation: Chest x-ray without infiltrate or consolidation Radiology Impression Discussion of test interpretation with radiology: I have reviewed the radiologist's reading. Radiologist Impression: Procedure(s): XR chest 2V Accession Number(s): [id number] cc: Bety Wiley; Susu Gavin MD~ EXAMINATION: XR CHEST CLINICAL INFORMATION: cough, chest pain COMPARISON: None available. TECHNIQUE: 2 views of the chest were obtained. FINDINGS: Elevated right hemidiaphragm. The cardiac, hilar, and mediastinal contours are normal. The lungs are clear bilaterally. There is no pneumothorax or pleural effusion. There is no focal osseous or soft tissue abnormality. There are cholecystectomy clips. XR/XR chest 2V IMPRESSION: No active pulmonary disease. Electronically signed by: Bryant Lantigua MD 08/26/2024 04:11 PM [facility] Workstation: [id number] External Record Review External record reviewed: Inpatient record, Office record, Outpatient record, Prior outpatient labs, Prior outpatient radiology, Primary care record and Outside ED record Prescription Management I considered prescription management with: Other (Cepacol throat lozenges, Tessalon Perles) Social Determinants Patient?s care significantly limited by Social Determinants of Health including: Other Social Determinant of Health Critical Care Time Critical Care Time Critical Care Time: No Discharge Plan Discharge Clinical Impression: Laryngitis Patient Disposition: Home, Self-Care Instructions: Laryngitis (ED) Additional Instructions: You tested negative for covid, flu, rsv, and strep throat. Your chest xray does not demonstrate pneumonia. Your exam is suspicious for laryngitis. Treatment for this is symptomatic. I have sent Cepacol throat lozenges to your pharmacy for your sore throat. I have sent Tessalon Perles to your pharmacy for cough. Please follow up with your primary care provider as needed. Return with any new or worsening symptoms. In the case of an emergency call 911. Prescriptions: New benzonatate 100 mg capsule 100 mg PO BID PRN (Reason: cough) Qty: 14 0RF Cepacol Sore Throat (lester-men) 15-2.6 mg lozenge 1 prieto mucous membrane Q2-4H PRN (Reason: sore throat) Qty: 16 0RF No Action amlodipine 5 mg tablet 5 mg PO DAILY omeprazole 20 mg capsule,delayed release(DR/EC) 20 mg PO DAILY baclofen 10 mg tablet 10 mg PO TID metformin 500 mg tablet 500 mg PO DAILY amitriptyline 25 mg tablet 25 mg PO BEDTIME losartan 100 mg tablet 100 mg PO DAILY rosuvastatin 20 mg tablet 20 mg PO DAILY gabapentin 100 mg capsule 100 mg PO TID cholecalciferol (vitamin D3) 125 mcg (5,000 unit) capsule 125 mcg PO DAILY albuterol sulfate [ProAir HFA] 90 mcg/actuation HFA aerosol inhaler 2 puff inhalation Q4-6H PRN ketotifen fumarate 0.025 % (0.035 %) drops 1 drp ophthalmic (eye) BID naloxone [Narcan] 4 mg/actuation spray,non-aerosol 4 mg intranasal Q2M PRN (Reason: opioid overdose) Qty: 2 0RF Rx Instructions: spray 1 dose into ONE nostril; alternate nostrils w each dose until help arrives oxycodone 5 mg tablet 5 mg PO Q8H PRN (Reason: pain (scale score 7-10)) 7 Days Qty: 21 0RF Rx Instructions: Partial Fill upon patient request. Referrals: Susu Gavin MD [Primary Care Provider] - Stand Alone Forms: Work/School Release Discharge Date/Time: 08/26/24 18:13 Print Language: Kazakh
[2024-08-26 16:31] LABS: IDNOW Serial# 58CA691E; Strep A Nucleic Acid Negative (Negative)
[2024-08-26 17:03] LABS: Influenza A PCR NEGATIVE (Negative); Influenza B PCR NEGATIVE (Negative); Resp Syncy Virus RNA Qual PCR NEGATIVE (Negative); SARS COV2 PCR INHOUSE NEGATIVE (Negative)
--- NOTE | 2024-08-26 18:12 | PC.NURSE ---
pt was seen and discharged by provider in triage
--- OUTSIDE RECORDS SUMMARY | 2024-08-26 18:50 | XMS_ITS | Patient Health Record ---
Author Organization [facility] Address [address] [place], [place] [id number] Care Team Providers Care Interventional Radiology Technologist Name Role Phone Katelin Ortiz Primary Care Provider Savanna Laboy Unavailable [phone] Reason For Referral No Information Plan Of Treatment No Information
--- OUTSIDE RECORDS SUMMARY | 2024-08-26 18:50 | XMS_ITS | Continuity of Care Document ---
Author Organization [facility] Address [address] [place] [address] Phone Care Team Providers Care Wardrobe Mistress Name Role Phone [facility], [facility] Pitcher Unavailable Unavaila ble Allergies, Adverse Reactions, Alerts Substance Reaction Status Criticality No Known Allergies Active No Inform ation Medications Medication Instructions Dosage Effective Dates (start - stop) Status Comments capsaicin 0.025 % topical cream apply by topical route at night to both feet - Active albuterol sulfate 2.5 mg/3 mL (0.083 %) solution for nebulization inhale 1 vial by inhalation route 4 x a day via nebulizer as needed - Active nebulizer and compressor Use Nebulizer machine to deliver albuterol medicine as directed - Active benzonatate 100 mg capsule take 1 capsule by oral route 3 times every day as needed for cough 100 MG - Active ProAir HFA 90 mcg/actuation aerosol inhaler inhale 2 puff by inhalation route every 4 - 6 hours as needed for asthma - Active metformin 500 mg tablet take 1 tablet by mouth daily with a meal - Active amlodipine 5 mg tablet take 1 tablet by mouth every day for high blood pressure - Active Vitamin D3 125 mcg (5,000 unit) tablet take every day for low vit D - Active Symbicort 160 mcg-4.5 mcg/actuation HFA aerosol inhaler inhale 2 puff by inhalation route 2 times every day in the morning and evening for asthma 2.00 puff - Active baclofen 10 mg tablet take 1 tablet by o ral route 3 times every day as needed for muscle spasms 10 MG - Active Procedures Procedure Date OFFICE/OUTPATIENT VISIT, EST Albuterol Via Office Nebulizer Injection Administration THER/PROPH/DIAG , SC/IM OFFICE/OUTPATIENT VISIT, EST OFFICE/OUTPATIENT VISIT, EST ROUTINE VENIPUNCTURE CBC, Platelet, No Differential CMP14+LP+Hb A1c+eAG Panel 005741 Thyroid Profile II Vitamin D, 25-Hydroxy OFFICE/OUTPATIENT VISIT, NEW Advance Directives Directive Yes / No Effective Date File Name No Information Encounters Encounter Description Practice Location Reason(s) For Visit Diagnoses Date Provider Providers Copied on Encounter [facility], [address], [place], [place], [id number], [place] tel:[phone] [facility] [place] No Information 2 [facility] Pitcher. [address], [place], [address], [place]. tel:[phone] [facility], [address], [place], [place], [id number], [place] tel:[phone] [facility] [place] Foot pain, bilateral 2 Eladio Pacheco. [address], [place], [address], [place]. tel:[phone] OFFICE/OUTPA TIENT VISIT, EST [facility], [facility], [place], [place], [id number], [place] tel:[phone] [facility] [place] [facility] (chief complaint) Foot neuralgia, unspecified lateralityNeu ropathyPredia betes 1 Benson Gandhi. [address], [place], [address], [place]. tel:[phone] OFFICE/OUTPA TIENT VISIT, EST [facility], [address], [place], [place], [id number], [place] tel:[phone] [facility] [place] URI (chief complaint) Body mass index [BMI] 40.0-44.9, adultEncounte r for screening for respiratory tuberculosisU RI, acuteLeft ear painMild persistent asthma with acute exacerbation 1 Eladio Pacheco. [address], [place], [address], [place]. tel: [phone] [facility], [address], [place], [place], [id number], [place] tel:[phone] [facility] [place] No Information 1 Eladio Pacheco. [address], [place], [address], [place]. tel:[phone] OFFICE/OUTPA TIENT VISIT, EST [facility], [address], [place], [place], [id number], [place] tel: [facility] [place] hypertension (chief complaint)F/U xray of feet (foot pain) (chief complaint) Body mass index [BMI] 40.0-44.9, adultEncounte r for screening for respiratory tuberculosisP rediabetesMor bid obesityStage 3a chronic kidney diseasePain in left footEssential (primary) hypertensionM ild intermittent asthma without complication 1 Eladio Pacheco. [address], [place], [address], [place]. tel: [phone] [facility], [address], [place], [place], [id number], [place] tel: [facility] [place] Laboratory exam ordered as part of routine general medical examination 1 Eladio Pacheco. [address], [place], [address], [place]. tel:[phone] OFFICE/OUTPA TIENT VISIT, NEW [facility], [address], [place], [place], [id number], [place] tel:[phone] [facility] [place] foot pain (chief complaint) Body mass index [BMI] 40.0-44.9, adultEncounte r for screening for respiratory tuberculosisE levated blood pressure readingFoot pain, bilateralPain in left foot Eladio Pacheco. [address], [place], [address], [place]. tel:[phone] Family History Family Member Type Diagnosis Age At Onset Mother Problem Alive and well Father Problem Alive and well Immunizations Vaccine Date Status Comments Flu Inj Quad, 0.5 mL MDV refused Alpa rce: New Immunization Record Td preservative free refused Source: New Immunization Record TDAP refused Source: New Imm unization Record Payers Payer name Insurance type Covered libertarian ID Authoriza tion(s) Medicaid [employer] [id number] Medicaid [employer] [id number] Social History Type Description Quantity Date Captured Comments Sex Female Smoking Status No Information Chief Complaint And Reason For Visit No Information Plan Of Treatment Date Type Action Status Goal Cervical Cancer Screening. D ue on due Goal Occult Blood, Fe [place], [place] (FIT). Due on due Goal Cologuard. Due on 2 due Goal Colonoscopy. Due on due Goal Tdap. Due on due Goal Td vaccine. Due on due Goal Depression screening. Due on due Goal Mammogram. Due on 2 due Goal FOBT (3 Cards Given). Due on due Goal MMR Vaccine. Due on due Goal Flu Vaccine. Due on due Goal Occult Blood, Fe yaquelin, [place] (FIT). Due on due Goal Cologuard. Due on 1 due Goal Tdap. Due on due Goal Colonoscopy. Due on due Goal Td vaccine. Due on due Goal Mammogram. Due on due Goal FOBT (3 Cards Given). Due on due Goal Depression screening. Due on due Goal MMR Vaccine. Due on due Goal Flu Vaccine. Due on due Goal Cervical Cancer Screening. D ue on due Goal Cervical Cancer Screening. D ue on due Goal Occult Blood, Fe yaquelin, [place] (FIT). Due on due Goal Colonoscopy. Due on due Goal Tdap. Due on due Goal Cologuard. Due on due Goal Td vaccine. Due on due Goal Flu Vaccine. Due on due Goal Mammogram. Due on due Goal MMR Vaccine. Due on due Goal Depression screening. Due on due Goal FOBT (3 Cards Given). Due on due Goal Dietary manageme nt education, guidance, and counseling completed Goal MMR Vaccine. Due on due Goal Td vaccine. Due on due Goal FOBT (3 Cards Given). Due on due Goal Mammogram. Due on due Goal Colonoscopy. Due on due Goal Tdap. Due on due Goal Flu Vaccine. Due on due Goal Cologuard. Due on due Goal Occult Blood, Fe yaquelin, [place] (FIT). Due on due Goal Depression screening. Due on due Goal Cervical Cancer Screening. D ue on due Goal Dietary manageme nt education, guidance, and counseling completed Goal Occult Blood, Fe yaquelin, [place] (FIT). Due on due Goal Tdap. Due on due Goal Flu Vaccine. Due on due Goal Depression screening. Due on due Goal Cologuard. Due on due Goal FOBT (3 Cards Given). Due on due Goal Colonoscopy. Due on due Goal Mammogram. Due on due Goal Td vaccine. Due on due Goal MMR Vaccine. Due on due Goal Occult Blood, Fe yaquelin, [place] (FIT). Due on due Goal MMR Vaccine. Due on due Goal Cervical Cancer Screening. D ue on due Goal Mammogram. Due on due Goal Td vaccine. Due on due Goal FOBT (3 Cards Given). Due on due Goal Colonoscopy. Due on due Goal Depression screening. Due on due Goal Tdap. Due on due Goal Cologuard. Due on 1 due Goal Flu Vaccine. Due on 021 due Goal Dietary manageme nt education, guidance, and counseling completed Referral Referred To: [facility] [place] [phone] Ordered: Referrals: Orthopedics. [facility]. Evaluate and treat ordered Referral Referred To: Dr. Lux [place] [facility] [address] [place], [phone] Ordered: Referrals: Neurology. Dr. Lux [place] [facility]. Evaluate and treat ordered Referral Referred To: [facility] [address] [place], [phone] Ordered: Referrals: Vascular. [facility]. Location: Dr Kenzie Rodriguez. Evaluate and treat ordered Referral Referred To: Dr. Knowles [place], [place] [phone] Ordered: Referrals: [facility]. Dr. Knowles. Evaluate and treat ordered Referral Ordered: X-RAY EXAM OF FOOT (2 VIEWS) Bilateral ordered Patient Education Diabetes Foot Health: C are Instructio~ completed Patient Education Neuropathic Pain: Care Instructions completed Patient Education DASH Diet: Care Instruc tions completed Patient Education DASH Diet: Care Instruc tions completed History Of Present Illness Encounter Date Complaint History Of Prese nt Illness Podiatry The symptoms beg an 3 months ago. Pt is new to me , she c/o her feet and legs feel like electric sensation and they feel hot in a stocking distribution ,pt also gets this sensation to her hands , but on the feet it is constant , Pt also states she feels like her feet feel tight or swollen Pt is Pre-diabeticno antalgic gait pt is wearing open toe slides and walks without assistance a1c - 6.1 from 04/09/2021 URI The symptoms hav e worsened. The symptoms occur constantly. The patient presents with cough, earache, fever, headache and pharyngitis. The patient does not present with chills, diarrhea or fatigue. The illness is associated with change in appetite. The patient denies dizziness. Additional information: Left ear is full of pressure, hears noise and hurts her, feels like it is stuffy, feels like has a lot of congestion and sore throat, no appetite now- has to be really cold- throat feels really irritated. Ear pain is starting to get worse --cough is worse. hypertension Comorbid conditi ons include chronic kidney disease. It is currently a new diagnosis. Risk factors include obesity. Associated symptoms include fatigue. Pertinent negatives include chest pain, headache, hematuria and nausea. Additional information: says thinks pill is working F/U xray of feet (foot pain) Jasmina mora presents for follow up for xray of foot series foot pain Onset: gradual. Duration: more than 1 hour. Severity level is moderate-severe. It occurs constantly and is fluctuating. Location: bilateral foot. The pain is aching and throbbing. Context: there is no injury. Associated symptoms include joint instability and swelling. Hand Dominance: right. Additional information: Says feels like all her toes are swollen in bot feet, and unable to move them well, they hurt a lot and also on outer edge of soles and hurts to walk daily for last couple of months- mainly from ankle down. Instructions Date Instruction Additional Infor farnaz Take Aleve or Ibupro fen as directed on over the counter bottle. Related to Left ear pain Start Azithromycin 2 50 mg 2 tablets first day, then 1 tablet once a day for 4 more days. Finish all antibiotics. Take Benzonatate 100 mg 1 tablet every 8 hrs for cough. Related to URI, acute BMI-- 40--Obese - co ntinue eating healthy. Stay active.Return to clinic in 1-4 weeks, sooner if symptoms worsen. Related to Body mass index [BMI] 40.0-44.9, adult Negative screening Related to En counter for screening for respiratory tuberculosis Nebulizer with Albut sherron treatment done in office with improved symptoms. Start using Albuterol with nebulizer treatment every 4 hrs as needed. ER precautions given if not better. Related to Mild persistent asthma with acute exacerbation Educated patient on proper shoes and risks of foot ulcers. Patient to perform daily foot inspectionsALWAYS WEAR CLOSED TOE SHOES AND COTTON SOCKS, NO BAREFOOT, NO FLIP FLOPS Follow up with Primary care provider for Diabetes management Related to Prediabetes Referred to Neurolog y Rx a trail of Capsicin Related to Foot neuralgia, unspecified laterality Referred to Neurolog y Rx a trail of CapsicinEducated patient on proper shoes and risks of foot ulcers. Patient to perform daily foot inspectionsALWAYS WEAR CLOSED TOE SHOES AND COTTON SOCKS, NO BAREFOOT, NO FLIP FLOPS rtc 3 months Follow up with Primary care provider for Diabetes management Related to Neuropathy Giving encouragement to exercise Related to Body mass index [BMI] 40.0-44.9, adult Dietary management e ducation, guidance, and counseling Related to Body mass index [BMI] 40.0-44.9, adult Refill ProAir 2 puff s every 4 hrs as needed for cough. Refill Symbicort and use 2 puffs every morning and night. Related to Mild intermittent asthma without complication Start Amlodipine 5 m g 1 tablet once a day. Related to Essential (primary) hypertension BMI-- 40-- continue eating healthy. Stay active.Return to clinic in 4-6 weeks, sooner if symptoms worsen. Related to Body mass index [BMI] 40.0-44.9, adult Last A1c 6.1 % -- St art Lifestyle and diet changes. Add Metformin 500 mg 1 tablet 1 to 2 x a day with or without meals. Repeat A1c in 3 months. Related to Prediabetes Refer to Podiatry fo r consult, further evaluation. Related to Pain in left foot Continue with diet and exercise. Related to Morbid obesity Negative screening Related to En counter for screening for respiratory tuberculosis GFR - 58- normal is 60 -- reviewed will start medication. Force fluids. Related to Stage 3a chronic kidney disease Giving encouragement to exercise Related to Body mass index [BMI] 40.0-44.9, adult Dietary management e ducation, guidance, and counseling Related to Body mass index [BMI] 40.0-44.9, adult BMI-- 40-- Reviewed normal is 24 or less and ways for patient to look at losing weight. Start with less sugar in diet- cut out sodas, junk food from diet.Return to clinic in 1 to 4 weeks, sooner if symptoms worsen. Related to Body mass index [BMI] 40.0-44.9, adult Reviewed possible ca uses and may have high blood pressure that is undiagnosed. If left untreated will cause severe consequences. Get lab work today. Monitor BP at home, bring log to next visit. Related to Elevated blood pressure reading Negative screening Related to En counter for screening for respiratory tuberculosis As above. Take Ibupr ofen 800 mg 1 tablet 2 x a day for 2 days, then only for moderate to severe pain. Related to Pain in left foot Reviewed possible ca uses --get an X-ray of both feet. Start Baclofen 10 mg 1 tablet at bedtime, and increase to 3 x a day as tolerated. Will refer to behavioral health care coordinator. Related to Foot pain, bilateral Giving encouragement to exercise Related to Body mass index [BMI] 40.0-44.9, adult Dietary management e ducation, guidance, and counseling Related to Body mass index [BMI] 40.0-44.9, adult Assessments Type Assessment Date No Information
--- OUTSIDE RECORDS SUMMARY | 2024-08-26 18:50 | XMS_ITS | Encounter Summary ---
Author Organization [facility] [employer] Address [address] [place] [address] Care Team Providers Care Duct Cleaner Name Role Phone Susu Gavin MD Primary Care Provider [phone] Encounter Details Date Type Department Care Team ([facility] st Contact Info) Description 08/26/2024 Orders Only [facility] External Provider, [facility] Social History Tobacco Use Types Packs/Day Years Used Date Smoking Tobacco: Never Passive Smoke Exposure: Never Smokeless Tobacco: Never Alcohol Use Standard Drinks/Week Comments Never 0 (1 standard drink = 0.6 oz pur e alcohol) Depression Answer Date Recorded Patient Health Questionnaire-9 Score 4 07/28/2022 Housing Stability Answer Date Recorded What is your housing situation today? I have pato hudson 04/17/[address] you li ve. Do you have problems with any of the following? None of the above 04/17/2023 Food Insecurity Answer Date Recorded Within the past 12 months, y ou worried that your food would run out before you got money to buy more: Never True 04/17/2023 Within the past 12 months,th e food you bought just didn't last and you didn't have enough money to get more: Never True Transportation Answer Date Recorded In the past 12 months, has l ack of transportation kept you from medical appts, meetings, work or from getting things needed for daily living? No 04/17/2023 Utilities Answer Date Recorded In the past 12 months, has t he electric, gas, oil or water company threatened to shut off services in your home? No 04/17/2023 Depression Answer Date Recorded Patient Health Questionnaire-2 Score 0 07/28/2022 Comments Unknown Sex and Gender Information Value Date Recorded Sex Assigned at Female 05/02/2022 10:40 AM EDT Legal Sex Female 10:40 AM EDT Gender Identity Female 05/02/2022 10:40 AM EDT Sexual Orientation Straight 06/10/2022 12 :52 PM EST documented as of this encounter Plan of Treatment Upcoming Encounters Date Type Department Care Team (Late st Contact Info) Description 09/18/2024 10:15 AM EDT Office Visit [facility] [address] [place] [address] Tila Del Rosario MD [address] [place] [address] documented as of this encounter Procedures Procedure Name Priority Date/Time Associated Diagnosis Comments STREP A NUCLEIC ACID Routine 08/26/2024 4:08 PM EST SARS COV2/INFLUENZA A/B AND RSV RNA QL NAAT Routine 08/26/2024 4:08 PM EST XR CHEST 2 VIEWS Routine 08/26/2024 3:39 PM EST documented in this encounter Results * SARS-CoV-2 RNA, Influenza A/B, and RSV RNA, Ql NAAT (08/26/2024 4:08 PM EST) Influenza A PCR NEGATIVE Negative [facility] Influenza B PCR NEGATIVE Negative [facility] Resp Syncy Virus RNA Qual PCR NEGATIVE Negative [facility] SARS COV2 PCR NEGATIVE Negative [facility] Comment:All test results mus t be correlated with clinical findings.Negative results do not preclude SARS-CoV2, influenza Avirus, influenza B virus and/or RSV infectionand should not be used as the sole basis for treatment orother patient management decisions. Negative results must becombined with clinical observations, patient history, andepidemiological information.This test has not been evaluated for monitoring treatment ofinfection.This test has been authorized by the FDA under an EmergencyUse Authorization (EUA) for use by authorized laboratories.Testing performed on the [employer] GeneXpert utilizingreal-time RT-PCR.All SARS CoV2 and positive influenza A/B results arereported to [facility]. 08/26/2024 4:08 PM EST 08/26/2024 4:18 PM EST Generic External Data Provider LAB MICROBIOLOGY - GENERAL ORDERABLES Final Result Performing Organization Address [facility] de Phone Number [facility] [address] [place] [address] [phone] * Strep A Nucleic Acid (08/26/2024 4:08 PM EST) [employer]NOW SERIAL# [id number] [facility] Strep A Nucleic Acid Negative Negative [facility] Comment:All test results mus t be correlated with clinical findings.This test has not been evaluated for monitoring treatment ofinfection.Additional follow-up testing using the culture method isrequired if the result is negative and clinical symptomspersist, or in the event of an acute rheumatic feveroutbreak. 08/26/2024 4:08 PM EST 08/26/2024 4:18 PM EST Generic External Data Provider LAB MICROBIOLOGY - GENERAL ORDERABLES Final Result Performing Organization Address [facility] de Phone Number [facility] [address] [place] [address] [phone] * XR Chest 2 Views (08/26/2024 3:39 PM EST) Anatomical Region Laterality Modality Chest Radiographic Shahrzad ging 08/26/2024 3:39 PM EST Narrative 08/26/2024 4:14 PM EST ? [facility] ?[address] ?[place] [address] ?XRay Report ? Signed ? Patient: Andrea,Paula Kailey ?MR#: [id number] ?? [id number] ? : 1975 ?Acct:[id number] ? Age/Sex: 49 / F ?ADM Date: 02/24/25 ? Loc: HO.ED ? Attending Dr: ? Ordering Physician: Bety Wiley ?? Date of Service: 08/26/24 ?? Procedure(s): XR chest 2V ?? Accession Number(s): [id number] ? cc: Bety Wiley; Susu Gavin MD ? EXAMINATION: ?? XR CHEST ? CLINICAL INFORMATION: ?? cough, chest pain ? COMPARISON: ?? None available. ? TECHNIQUE: ?? 2 views of the chest were obtained. ? FINDINGS: ?? Elevated right hemidiaphragm. ? The cardiac, hilar, and mediastinal contours are normal. ? The lungs are clear bilaterally. There is no pneumothorax or pleural ?? effusion. ? There is no focal osseous or soft tissue abnormality. There are ?? cholecystectomy clips. ? XR/XR chest 2V ?? IMPRESSION: ?? No active pulmonary disease. ? Electronically signed by: ??Bryant Lantigua MD ??08/26/2024 04:11 PM EST RP ? Dictated By: ?Bryant Lantigua MD ? Signed By: ?<Electronically signed by Bryant Lantigua MD in OV> ?08/26/24 1611 ? DD/ 1539 ? TD/TT: 08/26/24 1606 ? Coat Presser: ? Procedure Note Desirae Skinner - 08/26/2024 [place] [id number] XRay Report Signed Patient: Paula MendezMR#: [id number] : 1975Acct:[id number] Age/Sex: 49 / FADM Date: 08/26/24 Loc: HO.ED Attending Dr: Ordering Physician: Bety Wiley Date of Service: 08/26/24 Procedure(s): XR chest 2V Accession Number(s): [id number] cc: Bety Wiley; Susu Gavin MD EXAMINATION: XR CHEST CLINICAL INFORMATION: cough, chest pain COMPARISON: None available. TECHNIQUE: 2 views of the chest were obtained. FINDINGS: Elevated right hemidiaphragm. The cardiac, hilar, and mediastinal contours are normal. The lungs are clear bilaterally. There is no pneumothorax or pleural effusion. There is no focal osseous or soft tissue abnormality. There are cholecystectomy clips. XR/XR chest 2V IMPRESSION: No active pulmonary disease. Electronically signed by: Bryant Lantigua MD 08/26/2024 04:11 PM EST Dictated By: Bryant Lantigua MD Signed By: <Electronically signed by Bryant Lantigua MD in OV> 08/26/24 1611 DD/ 1539 TD/TT: 08/26/24 1606 Coat Presser: [facility] External Provider IMG XR PROCEDURES Final Result documented in this encounter Visit Diagnoses Not on filedocumented in this encounter Additional Health Concerns Assessment Noted Time PHQ-9 Depression Total Score: 4 07/28/19 23 1:52 PM EST documented as of this encounter Care Teams Duct Cleaner Relationship Specialty Start Date End Date Susu Gavin MD [address] [place] [phone] PCP - General Family Medicine 02/25/22 documented as of this encounter
--- OUTSIDE RECORDS SUMMARY | 2024-08-26 18:50 | XMS_ITS | Encounter Summary ---
Author Organization [employer] Address [address] [place] [address] Care Team Providers Care Refrigerating Oiler Name Role Phone Susu Gavin MD Primary Care Provider [phone] Encounter Details Date Type Department Care Team (Latest Contact Info) Description 08/01/2024 Travel Social History Tobacco Use Types Packs/Day Years [...] Description 09/18/2024 10:15 AM EDT Office Visit [facility] [address] [place] [address] Tila Del Rosario MD [address] [place] [address] documented as of this encounter Visit Diagnoses Not on filedocumented in this encounter Additional Health Concerns Assessment Noted Time PHQ-9 Depression Total Score: 4 07/28/19 23 1:52 PM EST documented as of this encounter Care Teams Refrigerating Oiler Relationship Specialty Start Date End Date Susu Gavin MD [address] [place] [phone] PCP - General Family Medicine 02/25/22 documented as of this encounter
--- OUTSIDE RECORDS SUMMARY | 2024-08-26 18:50 | XMS_ITS | Clinical Summary ---
Author Organization [facility] Facility Address [address] [place] [address] Care Team Providers Care Pants Maker Name Role Phone Susu Gavin MD Primary Care Provider [phone] Allergies No known active allergies Medications ProAir HFA 108 (90 Base) MCG/ACT inhaler INHALE 2 PUFFS BY MOUTH EVERY 4-6 HOURS NEEDED 2 Active amitriptyline (ELAVIL) 25 MG tablet Take 25 mg by mouth at bed time 2 Active amLODIPine (NORVASC) 5 MG tablet Take 5 mg by mouth 1 (one) time each day 2 Active Blood Pressure Monitoring (Omron 3 Series BP Monitor) device Check blood pressure on arm as directed 2 Active Symbicort 160-4.5 MCG/ACT inhaler INHALE TWO PUFFS BY MOUTH TWICE DAILY IN THE MORNING AND EVENING. RINSE MOUTH AFTER USE 2 Active D-3-5 125 MCG (5000 UT) capsule Take 5,000 Units by mouth 1 (one) time each day 2 Active metFORMIN (GLUCOPHAGE) 500 MG tablet Take 500 mg by mouth 1 (one) time each day 2 Active rosuvastatin (CRESTOR) 10 MG tablet Take 10 mg by mouth 1 (one) time each day 2 Active Dapagliflozin Propanediol (Farxiga) 10 MG tablet Take 10 mg by mouth 1 (one) time each day 90 tablet 2 3 Active Active Problems Problem Noted Date Diagnosed Date Pain in both feet 05/18/2023 Overview (08/18/2023): Last Assessment & Plan: Patient presented visit with same complaint of foot pain, therefore, patient will be referred to Podiatry. In addition, patient will be prescribed pain medications. Vitamin D deficiency 06/24/2022 Overview (11/29/2022): Last Assessment & Plan: Will check level Patient encounter status 06/24/2022 Overview (11/29/2022): Last Assessment & Plan: Will send for screening mammography Plantar fasciitis 06/24/2022 Overview (11/29/2022): Last Assessment & Plan: Reports poor rapport with current podiatric provider, sp steroid injecton, reports symptoms are worse now, refer to other provider. Discussed with patient she can trial insoles and/or PT. Hyperlipidemia 06/24/2022 Overview (11/29/2022): Last Assessment & Plan: On low to moderate dose statin, will check levels and assess need for adjustment. 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 Also added ammonium lactate Proteinuria 05/30/2022 Type 2 diabetes mellitus wit h diabetic chronic kidney disease 05/30/2022 Chronic kidney disease due to benign hypertensio n 05/30/2022 Stage 3a chronic kidney disease 04/14/2022 Prediabetes 04/14/2022 Obesity 04/14/2022 Moderate persistent asthma 04/14/2022 Hypertensive disorder 04/14/2022 Overview (11/29/2022): Last Assessment & Plan: Uncontrolled. Patient with continuous high blood pressure readings. Not within target BP. Currently on max dose of amlodipine. At this point will start on losartan 50mg. Immunizations Name Administration Dates Next Due Influenza, MDCK, Quadrivalent, with preservative 04/08/2022 Influenza, Quadrivalent, Preservative Free 05/18 Pneumococcal Conjugate Pcv 20 05/18/2023 Tdap 02/25/2022 Family History Medical History Relation Comments Diabetes Mother Relation Status Comments Mother Social History Tobacco Use Types Packs/Day Years Used Date Smoking Tobacco: Never Smokeless Tobacco: Never Tobacco Cessation:Counseling Given: Not Answered Alcohol Use Standard Drinks/Week Comments Not Currently 0 (1 standard drink = 0.6 oz pur e alcohol) Comments Unknown Sex and Gender Information Value Date Recorded Sex Assigned at Not on file Legal Sex Female 9:20 AM EDT Gender Identity Not on file Sexual Orientation Not on file Last Filed Vital Signs Vital Sign Reading Time Taken Comments Blood Pressure 112/80 05/30/2022 1:59 PM EST Pulse 85 05/30/2022 1:59 PM EST Temperature - - Respiratory Rate - - Oxygen Saturation 97% 05/30/2022 1:59 PM EST Inhaled Oxygen Concentration - - Weight 117 kg (258 lb) 02/09/2023 8:57 AM EDT Height 165.1 cm (5' 5 ) 05/30/2022 1:59 PM EST Body Mass Index 42.93 05/30/2022 1:59 PM EST Plan of Treatment Health Maintenance Due Date Last Done Comments Breast Cancer Screening 1974 Hepatitis B Vaccine (1 of 3 - 19+ 3-dose series) 1993 Diabetes: Hemoglobin A1C 05/30/2022 Diabetes: Pedal Pulse Checked 05/30/2022 Diabetes: Sensory Foot Exam 05/30/2022 Diabetes: Visual Foot Exam 05/30/2022 Colorectal Cancer Screening: Annual FOBT 2023 Colorectal Cancer Screening: Colonoscopy 2023 Colorectal Cancer Screening: Sigmoidoscopy 2023 Diabetes: Ophthalmology Exam 07/12/2023 07/12/2022 Influenza Vaccine (#1) 2024 05/18/2023, 2021 Pneumococcal Vaccine: Pediat rics (0 to 5 Years) and At-Risk Patients (6 to 64 Years) Completed 05/18/2023 Insurance [place]ID [place] [facility] [place] [address] [place] Care Teams Pants Maker Relationship Specialty Start Date End Date Susu Gavin MD PCP - General Family Medicine 03/14/22
--- OUTSIDE RECORDS SUMMARY | 2024-08-26 18:50 | XMS_ITS | Clinical Summary ---
Author Organization [employer] Address [address] [facility] [address] [place] [address] Care Team Providers Care Golf Club Facer Name Role Phone Susu Gavin MD Primary Care Provider [phone] Allergies No known active allergies Medications Blood Pressure kit Extra large cuff. Use to monitor blood pressure once a day and PRN Active ketotifen (Zaditor) 0.025 % ophthalmic solutionIndication s:Allergic conjunctivitis of both eyes Administer 1 drop into both eyes 2 times daily. 10 mL 1 07/28/19 23 Active GaviLyte-G 236 g solution FOLLOW INSTRUCTIONS FROM GI OFFICE 05/02/20 23 Active Condoms - Female (FC2 Female Condom) misc INSERT ONE INSTRUCTED VAGINALLY PRIOR TO SEXUAL INTERCOURSE NEEDED 02/28/20 23 Active albuterol (ProAir HFA) 108 (90 Base) MCG/ACT inhaler Inhale 2 puffs every 4 (four) hours. Inhale 2 puffs by inhalation route every 4-6 hours as needed 18 g 11 05/18/20 23 Active amLODIPine (Norvasc) 5 MG tablet Take 1 tablet (5 mg) by mouth in the morning. 90 tablet 1 05/18/20 23 Active budesonide-formote rol (Symbicort) 160-4.5 MCG/ACT inhalerIndications :Mild persistent asthma without complication Inhale 2 puffs every 12 (twelve) hours. Inhale 2 puffs by inhalation route 2 times every day in the morning and evening 1 each 2 05/18/20 23 Active losartan (Cozaar) 100 MG tabletIndications: Primary hypertension Take 1 tablet (100 mg) by mouth in the morning. 90 tablet 1 05/18/20 23 Active metFORMIN (Glucophage) 500 MG tablet Take 1 tablet (500 mg) by mouth in the morning. 90 tablet 1 05/18/20 23 Active rosuvastatin (Crestor) 20 MG tabletIndications: Hyperlipidemia, unspecified hyperlipidemia type Take 1 tablet (20 mg) by mouth in the morning. 90 tablet 1 05/18/20 23 Active cholecalciferol (Vitamin D-3) 125 MCG (5000 UT) capsule Take 1 capsule (125 mcg) by mouth in the morning. 120 capsule 3 05/18/20 23 Active Diclofenac Sodium 1 % gelIndications:Mark ntar fasciitis APPLY 1 GRAM TOPICALLY IN THE MORNING, AT NOON, AND BEDTIME IF NEEDED 100 g 06/13/20 23 Active omeprazole (PriLOSEC) [address] capsule Take 1 capsule (20 mg) by mouth before breakfast and before evening meal. 180 capsule 3 09/18/19 24 025 Active gabapentin (Neurontin) 100 MG capsule Take 1 capsule (100 mg) by mouth every 8 (eight) hours. 270 capsule 1 11/10/19 24 025 Active naproxen (Naprosyn) 500 MG tablet TAKE 1 TABLET BY MOUTH TWICE A DAY 60 tablet 12/07/19 24 Active Acetaminophen Extra Strength 500 MG tablet Take 2 tablets by mouth 2 times daily. 60 tablet 01/22/20 24 Active amitriptyline (Elavil) 25 MG tablet TAKE 1 TABLET BY MOUTH AT BEDTIME FOR BACK PAIN 90 tablet 1 05/09/20 24 Active triamcinolone (Kenalog) 0.1 % creamIndications:U rticaria Apply topically if needed in the morning and at bedtime (pain and swelling). 30 g 3 06/03/20 24 Active fexofenadine (Fatoumata) 180 MG tabletIndications: Urticaria TAKE 1 TABLET (180 MG) BY MOUTH IF NEEDED EACH DAY FOR ALLERGIES 90 tablet 06/25/20 24 Active Active Problems Problem Noted Date Diagnosed Date Chronic bilateral thoracic back pain 11/10/2023 Assessment & Plan (11/10/2023 2:17 PM EDT): Pain mgmt referral PT referral Trial Elavil 25mg tonight, Gabapentin 100mg TID Acupuncture auricular recommended Ascending aorta dilatation 11/10/2023 Assessment & Plan (11/10/2023 3:11 PM EDT): Seen on thoracic MRI 11/01/23 and recommended followup with CTA Fissure in ano 05/18/2023 05/18/2023 Foot pain, bilateral 05/18/2023 Assessment & Plan (05/18/2023 2:20 PM EST): Patient presented visit with same complaint of foot pain, therefore, patient will be referred to Podiatry. In addition, patient will be prescribed pain medications. Colon cancer screening 05/18/2023 Assessment & Plan (05/18/2023 2:04 PM EST): Will undergo colonoscopy in [facility] in [place] tomorrow per her report Plantar fasciitis 06/24/2022 Assessment & Plan (06/24/2022 4:44 PM EST): Reports poor rapport with current podiatric provider, sp steroid injecton, reports symptoms are worse now, refer to other provider. Discussed with patient she can trial insoles and/or PT. Xerosis of skin 06/24/2022 Assessment & Plan (06/24/2022 4:42 PM EST): Recommended decr use of soaps and warm baths. Also added ammonium lactate Hyperlipidemia 06/24/2022 Assessment & Plan (06/24/2022 4:42 PM EST): On low to moderate dose statin, will check levels and assess need for adjustment. Breast cancer screening by mammogram 06/24/2022 Assessment & Plan (06/24/2022 4:41 PM EST): Will send for screening mammography Vitamin D deficiency 06/24/2022 Assessment & Plan (06/24/2022 4:42 PM EST): Will check level Blurry vision, bilateral 06/24/2022 Assessment & Plan (06/24/2022 4:41 PM EST): Sent to optometry, send route requisition to eye center pool [facility] 05/30/2022 Chronic kidney disease due to benign hypertensio n 05/30/2022 Stage 3a chronic kidney disease 04/14/2022 Hypertensive disorder 04/14/2022 Assessment & Plan (05/18/2023 2:21 PM EST): Uncontrolled: patient presented visit with an elevated blood pressure with readings of: 158/88 mmHg. Patient will be prescribed Losartan to moderate readings. Patient had blood pressure retaken at the time of visit with readings of: 138/88 mmHg. Assessment & Plan (07/28/2022 2:14 PM EST): Uncontrolled. Patient with continuous high blood pressure readings. Not within target BP. Currently on max dose of amlodipine. At this point will start on losartan 50mg. Assessment & Plan (06/24/2022 4:43 PM EST): Will increase amlodipine from 5 mg to 10 mg q daily Moderate persistent asthma 04/14/2022 Obesity 04/14/2022 Assessment & Plan (05/18/2023 2:21 PM EST): Discussed calorie deficit, recommended reduction of 20-30% of maintenance calories; seed cleaner operator referral offered. Recommended to decrease soda and sugary beverage consumption. Recommended at least 20 g per meal of protein to assist with satiety. Recommended at least 150 min/week of moderate intensity exercise. Prediabetes 04/14/2022 Resolved Problems Problem Noted Date Diagnosed Date Resolved Date Type 2 diabetes mellitus wit h diabetic chronic kidney disease 05/30/2022 05/18/2023 Encounters Date Type Department Care Team Description 08/26/2024 Orders Only [facility] External Provider, [facility] 08/01/2024 Travel 06/25/2024 Refill [facility] [address] [place] [address] Av Curiel MD Urticaria 06/12/2024 Travel 06/03/2024 6:00 PM EST Office Visit [facility] [address] [place] [address] Av Curiel MD Urticaria (Primary Dx) 06/03/2024 Travel from Last 3 Months Immunizations Name Administration Dates Next Due INFLUENZA INJECTABLE QUADRIV ALANT CCIIV4 MDCK Multi-dose vial 04/08/2022 Influenza injectable quadrivalent preservative f ree 05/18/2023 Pneumococcal Conjugate PCV 20 05/18/2023 Tdap 02/25/2022 Family History Medical History Relation Name Comments Asthma Mother Diabetes Mother Hyperlipidemia Mother Hypertension Mother Diabetes Mother's Brother Diabetes Mother's Sister Relation Name Status Comments Mother Mother's Brother Mother's Sister Social History Tobacco Use Types Packs/Day Years Used Date Smoking Tobacco: Never Passive Smoke Exposure: Never Smokeless Tobacco: Never Tobacco Cessation:Counseling Given: Not Answered Alcohol Use Standard Drinks/Week Comments Never 0 [...] Orientation Straight 06/10/2022 12 :52 PM EST Last Filed Vital Signs Vital Sign Reading Time Taken Comments Blood Pressure 149/102 06/03/2024 5:56 PM EST pt insist her BP always like his Pulse 63 06/03/2024 5:56 PM EST Temperature 36.7 ??C (98 ??F) 06/03/2024 5:5 6 PM EST Respiratory Rate 18 06/03/2024 5:56 PM EST Oxygen Saturation 98% 06/03/2024 5:5 6 PM EST Inhaled Oxygen Concentration - - Weight 116 kg (255 lb) 06/03/2024 5:56 PM EST Height 165.1 cm (5' 5 ) 01/24/2024 1:55 PM EDT Body Mass Index 42.43 01/24/2024 1:55 PM EDT Plan of Treatment Upcoming Encounters Date Type Department Care Team (Late st Contact Info) Description 09/18/2024 10:15 AM EDT Office Visit [facility] [address] [place] [address] Tila Del Rosario MD [address] [place] [address] Health Maintenance Due Date Last Done Comments CT Colonography 1974 FIT DNA/Cologuard 1974 FIT 1974 FOBT 1974 Sigmoidoscopy 1974 Alcohol/Substance Use Screening 1986 Family Planning (PISQ) 1989 Hepatitis B Vaccines (1 of 3 - 19+ 3-dose series) 1993 Pap Smear 1995 Cervical Cancer Screening 2004 HPV/Cotest 2004 Mammogram 2014 SDOH Screening 06/24/2023 06/24/2022 Depression Screening 07/28/2023 07/28/2022, 07/28/2022 COVID-19 Vaccine (2 - 2023-2 5 season) 2024 04/08/2022 Influenza Vaccine (#1) 2024 , 04/08/2022 Zoster Vaccines (1 of 2) 2024 Tobacco Screening 01/23/2025 01/24/2024 Lipid Panel 07/13/2027 07/13/2022, 02/28/2022 DTaP/Tdap/Td Vaccines (2 - T d or Tdap) 02/26/2032 02/25/2022 Colonoscopy 05/19/2033 05/19/2023 Colorectal Cancer Screening 05/19/2033 RSV Patients and Patients Aged 60 years or older (1 - 1-dose 75+ series) 2049 HIV Screening Completed 02/28/2022 Hepatitis C Screening Completed 05/30/2022 , 05/30/2022, 02/28/2022 Pneumococcal Vaccine: 50+ Years Completed 05/18/2023 Diabetes: Hemoglobin A1C Discontinued HIB Vaccines Aged Out No longer eligi ble based on patient's age to complete this topic HPV Vaccines Aged Out No longer eligi ble based on patient's age to complete this topic Hepatitis A Vaccines Aged Out No long er eligible based on patient's age to complete this topic IPV Vaccines Aged Out No longer eligi ble based on patient's age to complete this topic Meningococcal Vaccine Aged Out No myesha grupo eligible based on patient's age to complete this topic RSV under 20 months Aged Out No longe r eligible based on patient's age to complete this topic Rotavirus Vaccines Aged Out No longer eligible based on patient's age to complete this topic Procedures Procedure Name Priority Date/Time Associated Diagnosis Comments SARS COV2/INFLUENZA A/B AND RSV RNA QL NAAT Routine 08/26/2024 4:08 PM EST STREP A NUCLEIC ACID Routine 08/26/2024 4:08 PM EST XR CHEST 2 VIEWS Routine 08/26/2024 3:39 PM EST HM COLONOSCOPY Routine 05/19/2023 LIPID PANEL, STANDARD Routine 07/13/2022 9:56 AM EST Hyperlipidemia, unspecified hyperlipidemia type HEPATITIS C ANTIBODY Routine 05/30/2022 3:01 PM EST HIV 1/2 ANTIGEN/ANTIBODY, FOURTH GENERATION W/RFL Routine 02/28/2022 8:46 AM EDT from Last 3 Months or Most Recently Relevant to Health Maintenance Results * Strep A Nucleic Acid (08/26/2024 4:08 PM EST) IDNOW SERIAL# [id number] [facility] Strep A Nucleic Acid Negative Negative [facility] Comment:All test results mus t [...] LAB MICROBIOLOGY - GENERAL ORDERABLES Final Result [facility] [address] [place] [address] [phone] * SARS-CoV-2 RNA, Influenza A/B, and RSV RNA, Ql NAAT (08/26/2024 4:08 PM EST) Influenza A PCR NEGATIVE Negative [facility] Influenza B PCR NEGATIVE Negative [facility] Resp Syncy Virus RNA Qual PCR NEGATIVE Negative [facility] SARS COV2 PCR NEGATIVE Negative [facility] Comment:All test results mus t [...] use by authorized laboratories.Testing performed on the [employer]Pop GeneXpert utilizingreal-time RT-PCR.All SARS CoV2 and positive influenza A/B results arereported to [facility]. 08/26/2024 4:08 PM EST 08/26/2024 4:18 PM EST us Generic External Data Provider LAB MICROBIOLOGY - GENERAL ORDERABLES Final Result [facility] [address] [place] [address] [phone] * XR Chest 2 Views (08/26/2024 3:39 PM EST) Anatomical Region Laterality Modality Chest Radiographic Shahrzad ging 08/26/2024 3:39 PM EST Narrative 08/26/2024 4:14 PM EST ? [facility] ?[address] ?[place] [address] ?XRay Report ? Signed ? Patient: Paula Mendez ?MR#: [id number] ?? [id number] ? : 1975 ?Acct:[id number] ? Age/Sex: 49 / F ?ADM Date: 08/26/24 ? Loc: HO.ED ? Attending Dr: ? Ordering Physician: Bety Wiley ?? Date of Service: 08/26/24 ?? Procedure(s): XR chest 2V ?? Accession Number(s): [id number] ? cc: Bety Wiley; Susu Gavin MD [...] DD/ 1539 ? TD/TT: 08/26/24 1606 ? Lace Tearing Supervisor: ? Procedure Note Brody, Image - 08/26/[address] [address] XRay Report Signed Patient: Paula MendezMR#: [id number] : 1975Acct:[id number] Age/Sex: 49 / FADM Date: 08/26/24 Loc: HO.ED Attending Dr: Ordering Physician: Bety Wiley Date of Service: 08/26/24 Procedure(s): XR chest 2V Accession Number(s): [id number] cc: Bety Wiley; Susu Gavin MD EXAMINATION: [...] 08/26/24 1611 DD/ 1539 TD/TT: 08/26/24 1606 Lace Tearing Supervisor: [employer] External Provider IMG XR PROCEDURES Final Result * Hm Colonoscopy (05/19/2023) Colonoscopy Normal Normal Narrative Susu Gavin MD - 05/19/2023 Normal path for random bx, done in [facility], report in media Historical Provider HEALTH MAINTENANCE Final Result * (ABNORMAL) Lipid Panel, Standard (07/13/2022 9:56 AM EST) Cholesterol, Total 197 <200 mg/dL [facility] HDL Cholesterol 42(L) > OR = 50 mg/dL [facility] Triglycerides 190(H) <150 mg/dL [facility] LDL Cholesterol 124(H) mg/dL (calc) [facility] Comment: Reference range: <100 Desirable range <100 mg/dL for primary prevention; ?? <70 mg/dL for patients with CHD or diabetic patients with > or = 2 CHD risk factors. LDL-C is now calculated using the Jose Alfredo calculation, which is a validated novel method providing better accuracy than the Friedewald equation in the estimation of LDL-C. Jayesh HA et al. LUZ. 2013;310(19): 8455-3022 (http://education.[employer]/faq/KLM825) Chol/HDLC Ratio 4.7 <5.0 (calc) [facility] Non-HDL Cholesterol 155(H) <130 mg/dL (calc) [facility] Comment: For patients with diabetes plus 1 major ASCVD risk factor, treating to a non-HDL-C goal of <100 mg/dL (LDL-C of <70 mg/dL) is considered a therapeutic option. Blood Venous blood specimen / Unknown 07/13/2022 9:56 AM EST 07/13/2022 9:56 AM EST Narrative [facility] - 07/18/2022 12:29 AM EST FASTING:YES FASTING: YES us Susu Gavin MD LAB BLOOD ORDERABLES Final Re sult [facility] [address] [facility] [facility], [place] [address] [facility] [address], ([address]) [place] [address] * Hepatitis C Ab (05/30/2022 3:01 PM EST) Hepatitis C Antibody Nonreactive Nonreactive [facility] Comment:Antibodies to HCV no t detected; does not exclude early acuteHCV infection. 05/30/2022 3:01 PM EST 05/30/2022 3:01 PM EST us [facility] External Provider LAB BLO OD ORDERABLES Final Result Performing Organization Address [facility]/ZIP Co de Phone Number [facility] [address] [place] [address] [phone] * HIV 1/2 ANTIGEN/ANTIBODY,FOURTH GENERATION W/RFL (02/28/2022 8:46 AM EDT) HIV-1/2 ANTIGEN AND ANTIBODIES, 4TH GENERATION W/ REFLEX NON-[facility] Comment: HIV-1 antigen and HIV-1/HIV-2 antibodies were not detected. There is no laboratory evidence of HIV infection. ?? PLEASE NOTE: This information has been disclosed to you from records whose confidentiality may be protected by state law. ??If your state requires such protection, then the state law prohibits you from making any further disclosure of the information without the specific written consent of the person to whom it pertains, or as otherwise permitted by law. A general authorization for the release of medical or other information is NOT sufficient for this purpose. ? For additional information please refer to http://education.[employer]mOne/faq/ZKN415 (This link is being provided for informational/ educational purposes only.) ? The performance of this assay has not been clinically validated in patients less than 2 years old. ?? 02/28/2022 8:46 AM EDT Susu Gavin MD LAB BLOOD ORDERABLES Final Re sult [facility] [address] from Last 3 Months or Most Recently Relevant to Health Maintenance Insurance BCBS [facility] Care Teams Golf Club Facer Relationship Specialty Start Date End Date Susu Gavin MD [address] [place] [phone] PCP - General Family Medicine 02/25/22
--- OUTSIDE RECORDS SUMMARY | 2024-08-26 18:50 | XMS_ITS | Encounter Summary ---
Author Organization [employer] Address [address] [place] [address] Care Team Providers Care Switch Technician Name Role Phone Susu Gavin MD Primary Care Provider [phone] Reason for Visit * Reason Onset Date Comments Results 10/10/2023 Encounter Details Date Type Department Care Team ([facility] st Contact Info) Description 10/10/2023 Telephone [facility] [address] [place] [address] Susu Gavin MD [address] [place] [address] Results Social History Tobacco Use Types Packs/Day Years [...] PM EST documented as of this encounter Miscellaneous Notes * Telephone Encounter - Trista Son - 10/10/2023 11:48 AM EDT Tc from pt requesting a call back in regards results from 10/02 documented in this encounter Plan of Treatment Upcoming Encounters Date Type Department Care Team (Late st Contact Info) Description 09/18/2024 10:15 AM EDT Office Visit [facility] [address] [place] [address] Tila Del Rosario MD [address] [place] [address] documented as of this encounter Visit Diagnoses Not on filedocumented in this encounter Additional Health Concerns Assessment Noted Time PHQ-9 Depression Total Score: 4 07/28/19 23 1:52 PM EST documented as of this encounter Care Teams Switch Technician Relationship Specialty Start Date End Date Susu Gavin MD [address] [place] [address] PCP - General Family Medicine 02/25/22 documented as of this encounter
== END 2024-08-26 18:13 | disposition home or self-care (01) ==
PROVIDERS: Physician Assistant Medical; Emergency Provider Emergency Medicine; PCP Family Medicine
DX: J02.9 Acute pharyngitis, unspecified (principal); R05.9 Cough, unspecified; R07.89 Other chest pain; I10 Essential (primary) hypertension; Z79.899 Other long term (current) drug therapy; Z03.818 Encounter for observation for suspected exposure to other biological agents ruled out
CPT/HCPCS: 0241U; 71046; 87651; 99281; 99283

== ENCOUNTER → 2024-08-26 15:39 | Outpatient (BNV) | payer MEDICAID, SELFPAY | PROVIDERS: PCP Family Medicine; Visit Provider Radiology Diagnostic Radiology | DX: R05.9 Cough, unspecified (principal); R07.9 Chest pain, unspecified | CPT/HCPCS: 71046 ==

== ENCOUNTER 2024-09-19 08:53 | Outpatient (REF) | payer MEDICAID, SELFPAY ==
[2024-09-19 14:34] LABS: Estimated Average Glucose 117 mg/dL; Hemoglobin A1c % 5.7 % (<6.0); Total Hemoglobin (HGBA1C) 3416.4593 umol/L
[2024-09-19 15:25] LABS: Alanine Aminotransferase 23 U/L (0-31); Albumin Level 3.8 g/dL (3.5-5.0); Alkaline Phosphatase 58 U/L (39-117); Anion Gap 9 (12-20); Aspartate Amino Transferase 32 U/L (5-31); Bilirubin Direct 0.1 mg/dL (0.0-0.5); Bilirubin Total 0.4 mg/dL (0.0-1.0); Blood Urea Nitrogen 15 mg/dL (9-16); Calcium 9.1 mg/dL (8.4-10.2); Carbon Dioxide 29 mmol/L (22-29); Chloride 107 mmol/L (96-108); Cholesterol 209 mg/dL (<200); Estimated Glomerular Filt Rate 52; Glucose Random 112 mg/dL (60-115); HDL Cholesterol 39 mg/dL (>40); LDL Cholesterol Calculated 142 mg/dL (<100); Potassium 4.1 mmol/L (3.3-5.1); Sodium 141 mmol/L (135-145); Total Protein 7.8 g/dL (6.5-8.0); Triglycerides 144 mg/dL (<150)
== END 2024-09-19 08:54 | disposition home or self-care (01) ==
LOC: HO.CHCLDS 08:53
PROVIDERS: Visit Provider Student in an Organized Health Care Education/Training Program
DX: R73.03 Prediabetes (principal); E78.5 Hyperlipidemia, unspecified
CPT/HCPCS: 36415; 80048; 80061; 80076; 83036

== ENCOUNTER 2024-10-06 15:53 | Emergency (ER) | payer MEDICAID, SELFPAY ==
--- NOTE | ~2024-10-06 | XR_ITS ---
CLINICAL HISTORY: chest pain 2 view chest x-ray Comparison: CR/SR - XR CHEST 2V - 08/26/24 16:08 EST Findings: No consolidation or effusion. Normal size heart. No acute fracture. IMPRESSION: 1. No acute findings. This document has been electronically signed by: Justin Anton MD on 10/06/2024 16:57:32
--- NOTE | 2024-10-06 15:54 | ECG_ITS ---
Test Reason : cp Blood Pressure : */* mmHG Vent. Rate : 84 BPM Atrial Rate : 84 BPM P-R Int : 148 ms QRS Dur : 70 ms QT Int : 368 ms P-R-T Axes : 38 34 19 degrees QTcB Int : 434 ms Normal sinus rhythm Low voltage QRS Nonspecific T wave abnormality Abnormal ECG No previous ECGs available Referred By: Mariangel Patel Electronically Signed By: Sotero Villalobos
[2024-10-06 16:08] VITALS: BP 118/74; PULSE 88; RESP 18; TEMP 36.6; O2SAT 97; BMI 40.8
--- NOTE | 2024-10-06 16:08 | ED.GENADULT ---
HPI - General Adult General Chief complaint: Upper Respiratory Symptoms Stated complaint: chest pain, coughing sob Time Seen by Provider: 10/06/24 17:15 Source: patient Mode of arrival: ambulatory Limitations: no limitations History of Present Illness ED Provider: HPI narrative: Patient's history of asthma been coughing sore throat running nose for last 2 days cough is mostly dry feels subjective fever no other family member sick Related Data Home Medications ?Medication ?Instructions ?Recorded ?Confirmed amitriptyline 25 mg tablet 25 mg PO BEDTIME 02/16/23 02/28/23 amlodipine 5 mg tablet 5 mg PO DAILY 02/16/23 02/28/23 baclofen 10 mg tablet 10 mg PO TID 02/16/23 02/28/23 losartan 100 mg tablet 100 mg PO DAILY 02/16/23 02/28/23 metformin 500 mg tablet 500 mg PO DAILY 02/16/23 02/28/23 omeprazole 20 mg capsule,delayed 20 mg PO DAILY 02/16/23 02/28/23 release rosuvastatin 20 mg tablet 20 mg PO DAILY 02/16/23 02/28/23 albuterol sulfate 90 mcg/actuation 2 puff inhalation Q4-6H PRN 11/28/23 aerosol inhaler (ProAir HFA) cholecalciferol (vitamin D3) 125 125 mcg PO DAILY 11/28/23 mcg (5,000 unit) capsule gabapentin 100 mg capsule 100 mg PO TID 11/28/23 ketotifen fumarate 0.025 % (0.035 1 drp ophthalmic (eye) BID 11/28/23 %) eye drops Previous Rx's ?Medication ?Instructions ?Recorded naloxone 4 mg/actuation nasal 4 mg intranasal Q2M PRN opioid 02/12/24 spray (Narcan) overdose #2 ea oxycodone 5 mg tablet 5 mg PO Q8H PRN pain (scale score 05/16/24 7-10) 7 days #21 tabs benzocaine 15 mg-menthol 2.6 mg 1 prieto mucous membrane Q2-4H PRN 08/26/24 lozenges (Cepacol Sore Throat sore throat #16 ea (benzocaine-menthol)) benzonatate 100 mg capsule 100 mg PO BID PRN cough #14 caps 08/26/24 albuterol sulfate 2.5 mg/3 mL 2.5 mg (3 mL) inhalation Q4-6H PRN 10/06/24 (0.083 %) solution for nebulization shortness of breath or wheezing #90 mL cefuroxime axetil 500 mg tablet 500 mg PO BID 7 days #14 tabs 10/06/24 prednisone 20 mg tablet 40 mg (2 x 20 mg) PO DAILY #10 tabs 10/06/24 Allergies Allergy/AdvReac Type Severity Reaction Status Date / Time No Known Allergies Allergy Verified 10/06/24 16:09 Review of Systems Review of Systems: Yes all other systems are reviewed and are negative [facility] Past Medical History Medical History Ascending aorta dilatation Chronic bilateral thoracic back pain Foot pain, bilateral Vitamin D deficiency Hyperlipidemia Plantar fasciitis Moderate persistent asthma Stage 3a chronic kidney disease Proteinuria Other cervical disc degeneration at C4-C5 level Asthma Pre-diabetes HTN (hypertension) Surgical History Fissure in ano H/O rectal sphincterotomy History of cholecystectomy Hx of tonsillectomy H/O: hysterectomy Social History Social History Alcohol intake: never Patient Tobacco Use Status: Never used Tobacco Advance Directives: No Advance Directives Information Provided: No Physical Exam ED Vital Signs: Vital Signs - 24 hr 10/06/24 16:08 10/06/24 17:43 10/06/24 18:00 Temperature 97.8 F 98.1 F Pulse Rate 88 80 113 H Respiratory Rate 18 18 16 Blood Pressure 118/74 133/96 H Pulse Oximetry 97 Oxygen Delivery Method Room Air BMI result Body Mass Index 40.8 Appearance: Alert. Oriented X3. No acute distress. Eyes: no pallor or icterus ENT: Pharynx normal. Oral Mucosa moist Neck: Normal inspection. Neck supple. CVS: Normal heart rate and rhythm. Pulses normal. Respiratory: No respiratory distress. Equal air entry bilateral, no wheezing/rales/rhonchi prolonged expiration with frequent cough Abd: soft, not tender Skin: Skin warm and dry. Normal skin color. Normal skin turgor. Extremities: No lower extremity edema, no calf tenderness Neuro: Oriented X 3. Course Course Course Narrative: RME performed by Mariangel Patel PA-C. Patient is a 49 year old assigned female at presenting to the emergency department with a cough and chest pain with coughing. Detailed physical exam and review of systems are deferred to the mine exploration engineer. EKG, chest x-ray, and swabs ordered. Patient placed back in the waiting room pending room availability and results. Medications Administered Discontinued Medications Generic Name Dose Route Start Last Admin Trade Name Freq PRN Reason Stop Dose Admin Cefuroxime Axetil 500 mg 10/06/24 17:53 10/06/24 17:57 Cefuroxime Axetil 500 Mg Tablet PO 10/06/24 17:54 500 mg ONCE ONE Administration Albuterol Sulfate 2.5 mg/ 0 mg 10/06/24 17:33 10/06/24 17:41 Albuterol/Ipratropium 3 ml INHALE 10/06/24 17:34 1 dose ONCE ONE Administration Prednisone 60 mg 10/06/24 17:33 10/06/24 17:54 Prednisone 20 Mg Tablet PO 10/06/24 17:34 60 mg ONCE ONE Administration Medical Decision Making Medical Decision Making [facility] Narrative: Patient has acute bronchitis COVID flu RSV strep negative chest x-ray negative will prescribe antibiotic and prednisone advised to use inhaler/nebulizer at home Differential Diagnosis Differential Diagnoses: The differential diagnosis associated with the presentation includes Lab Data [facility] Lab Attestation statement: I reviewed the patient's lab results. Labs: Lab Results 10/06/24 Range/Units 16:40 Influenza Type A (PCR) NEGATIVE (Negative) Influenza Type B (PCR) NEGATIVE (Negative) RSV RNA Qual (PCR) NEGATIVE (Negative) SARS-CoV-2 RNA (RT-PCR) NEGATIVE (Negative) S. pyogenes GrpA NERI Negative (Negative) Radiology Impression Discussion of test interpretation with radiology: I have reviewed the radiologist's reading. Radiologist Impression: NAD Discharge Plan Discharge Clinical Impression: Bronchitis Patient Disposition: Home, Self-Care Instructions: Acute Bronchitis (ED) Additional Instructions: Continue to use your inhaler/nebulizer Your COVID flu RSV strep and chest x-ray all negative Take prednisone and antibiotics as prescribed Follow up with your PCP if not better Prescriptions: New prednisone 20 mg tablet 40 mg PO DAILY Qty: 10 0RF cefuroxime axetil 500 mg tablet 500 mg PO BID 7 Days Qty: 14 0RF albuterol sulfate 2.5 mg /3 mL (0.083 %) solution for nebulization 2.5 mg inhalation Q4-6H PRN (Reason: shortness of breath or wheezing) Qty: 90 0RF No Action benzonatate 100 mg capsule 100 mg PO BID PRN (Reason: cough) Qty: 14 0RF Cepacol Sore Throat (lester-men) 15-2.6 mg lozenge 1 prieto mucous membrane Q2-4H PRN (Reason: sore throat) Qty: 16 0RF amlodipine 5 mg tablet 5 mg PO DAILY omeprazole 20 mg capsule,delayed release(DR/EC) 20 mg PO DAILY baclofen 10 mg tablet 10 mg PO TID metformin 500 mg tablet 500 mg PO DAILY amitriptyline 25 mg tablet 25 mg PO BEDTIME losartan 100 mg tablet 100 mg PO DAILY rosuvastatin 20 mg tablet 20 mg PO DAILY gabapentin 100 mg capsule 100 mg PO TID cholecalciferol (vitamin D3) 125 mcg (5,000 unit) capsule 125 mcg PO DAILY albuterol sulfate [ProAir HFA] 90 mcg/actuation HFA aerosol inhaler 2 puff inhalation Q4-6H PRN ketotifen fumarate 0.025 % (0.035 %) drops 1 drp ophthalmic (eye) BID naloxone [Narcan] 4 mg/actuation spray,non-aerosol 4 mg intranasal Q2M PRN (Reason: opioid overdose) Qty: 2 0RF Rx Instructions: spray 1 dose into ONE nostril; alternate nostrils w each dose until help arrives oxycodone 5 mg tablet 5 mg PO Q8H PRN (Reason: pain (scale score 7-10)) 7 Days Qty: 21 0RF Rx Instructions: Partial Fill upon patient request. Stand Alone Forms: Work/School Release Interventions: ED Discharge Assessment Last Done: 10/06/24 18:00 Discharge Date/Time: 10/06/24 18:04 Print Language: Slovenian
[2024-10-06 16:56] LABS: IDNOW Serial# 55D5AD1C; Strep A Nucleic Acid Negative (Negative)
--- OUTSIDE RECORDS SUMMARY | 2024-10-06 17:12 | XMS_ITS | Clinical Summary ---
Author Organization [employer] Address [address] [facility] 7[address] [place] [address] Care Team Providers Care General Hardware Salesperson Name Role Phone Susu Gavin MD Primary Care Provider [phone] Allergies No known active allergies Medications Blood Pressure kit Extra large cuff. Use to monitor blood pressure once a day and PRN Active ketotifen (Zaditor) 0.025 % ophthalmic solutionIndicatio ns:Allergic conjunctivitis of both eyes Administer 1 drop into both eyes 2 times daily. 10 mL 1 023 Active GaviLyte-G 236 g solution FOLLOW INSTRUCTIONS FROM GI OFFICE 023 Active budesonide-formot sherron (Symbicort) 160-4.5 MCG/ACT inhalerIndication s:Mild persistent asthma without complication Inhale 2 puffs every 12 (twelve) hours. Inhale 2 puffs by inhalation route 2 times every day in the morning and evening 1 each 2 023 Active losartan (Cozaar) 100 MG tabletIndications :Primary hypertension Take 1 tablet (100 mg) by mouth in the morning. 90 tablet 1 023 Active metFORMIN (Glucophage) 500 MG tablet Take 1 tablet (500 mg) by mouth in the morning. 90 tablet 1 023 Active cholecalciferol (Vitamin D-3) 125 MCG (5000 UT) capsule Take 1 capsule (125 mcg) by mouth in the morning. 120 capsule 3 023 Active Diclofenac Sodium 1 % gelIndications:Pl perez fasciitis APPLY 1 GRAM TOPICALLY IN THE MORNING, AT NOON, AND BEDTIME IF NEEDED 100 g 023 Active omeprazole (PriLOSEC) [address] capsule Take 1 capsule (20 mg) by mouth before breakfast and before evening meal. 180 capsule 3 024 Active gabapentin (Neurontin) 100 MG capsule Take 1 capsule (100 mg) by mouth every 8 (eight) hours. 270 capsule 1 024 2024 Active naproxen (Naprosyn) 500 MG tablet TAKE 1 TABLET BY MOUTH TWICE A DAY 60 tablet 024 Active Acetaminophen Extra Strength 500 MG tablet Take 2 tablets by mouth 2 times daily. 60 tablet 024 Active amitriptyline (Elavil) 25 MG tablet TAKE 1 TABLET BY MOUTH AT BEDTIME FOR BACK PAIN 90 tablet 1 024 Active triamcinolone (Kenalog) 0.1 % creamIndications: Urticaria Apply topically if needed in the morning and at bedtime (pain and swelling). 30 g 3 024 Active fexofenadine (Fatoumata) 180 MG tabletIndications :Urticaria TAKE 1 TABLET (180 MG) BY MOUTH IF NEEDED EACH DAY FOR ALLERGIES 90 tablet 024 Active albuterol (ProAir HFA) 108 (90 Base) MCG/ACT inhaler Inhale 2 puffs every 4 (four) hours. Inhale 2 puffs by inhalation route every 4-6 hours as needed 18 g 11 025 Active amLODIPine (Norvasc) 10 MG tablet Take 1 tablet (10 mg) by mouth Once per day. 30 tablet 11 025 2025 Active rosuvastatin (Crestor) 20 MG tabletIndications :Hyperlipidemia, unspecified hyperlipidemia type Take 1 tablet (20 mg) by mouth Once per day. 90 tablet 1 025 2024 Active fluticasone (Flonase) 50 MCG/ACT nasal sprayIndications: Cough in adult patient Administer 1-2 sprays into each nostril Once per day. Shake gently. Before first use, prime pump. After use, clean tip and replace cap. 16 g 2 025 2025 Active Condoms - Female (FC2 Female Condom) misc INSERT ONE INSTRUCTED VAGINALLY PRIOR TO SEXUAL INTERCOURSE NEEDED 023 2024 Discontinued albuterol (ProAir HFA) 108 (90 Base) MCG/ACT inhaler Inhale 2 puffs every 4 (four) hours. Inhale 2 puffs by inhalation route every 4-6 hours as needed 18 g 11 023 2024 Discontinued(R eorder (will not trigger notification to Pharmacy)) amLODIPine (Norvasc) 5 MG tablet Take 1 tablet (5 mg) by mouth in the morning. 90 tablet 1 023 2024 Discontinued(R eorder (will not trigger notification to Pharmacy)) rosuvastatin (Crestor) 20 MG tabletIndications :Hyperlipidemia, unspecified hyperlipidemia type Take 1 tablet (20 mg) by mouth in the morning. 90 tablet 1 023 2024 Discontinued(R eorder (will not trigger notification to Pharmacy)) Active Problems Problem Noted Date Diagnosed Date [...] 2:04 PM EST): Will undergo colonoscopy in [facility] in [place] tomorrow per her report Plantar fasciitis 06/24/2022 [...] send route requisition to eye center pool Proteinuria 05/30/2022 Chronic kidney disease due to benign [...] recommended reduction of 20-30% of maintenance calories; manager quality compliance referral offered. Recommended to decrease soda and sugary beverage consumption. Recommended at least 20 g per meal of protein to assist with satiety. Recommended at least 150 min/week of moderate intensity exercise. Prediabetes 04/14/2022 Resolved Problems Problem Noted Date Diagnosed Date Resolved Date Type 2 diabetes mellitus wit hout complication, without long-term current use of insulin 09/18/2024 09/18/2024 Type 2 diabetes mellitus wit h diabetic chronic kidney disease 05/30/2022 05/18/2023 Encounters Date Type Department Care Team Description 10/06/2024 Orders Only GENERIC EXTERNAL DATA DEPARTMENT Provider, Generic External Data 10/03/2024 1:40 PM EDT Office Visit [facility] [address] [place] [address] Cough in adult patient 09/23/2024 Telephone [facility] [address] [place] [address] Tila Del Rosario MD Results ( Tila Del Rosario MD P [facility] Nurses/Advised low fat diet /) 09/23/2024 Telephone [facility] [address] [place] [address] Mary Blanton, OD 09/18/2024 10:15 AM EDT Office Visit [facility] [address] [place] [address] Tila Del Rosario MD Prediabetes (Primary Dx); Chronic kidney disease due to benign hypertension; Hyperlipidemia, unspecified hyperlipidemia type; Encounter for screening mammogram for breast cancer 09/18/2024 Travel 09/13/2024 Population Health Risk Score [facility] Department [address] [phone] Provider, Population Health Generic 09/11/2024 Travel 09/11/2024 Patient Outreach [facility] [address] [place] [address] Susu Gavin MD Pre-visit Planning ([facility] unable to reach [facility]) 08/26/2024 Orders Only [facility] External Provider, [facility] 08/01/2024 Travel from Last 3 Months Immunizations Name [...] Answer Date Recorded Patient Health Questionnaire-9 Score 0 09/18/2024 Patient Health Questionnaire-9 Score 0 09/18/2024 Last PHQ-9: Questionnaire Data Not on file 0 09/18/2024 Housing Stability Answer Date Recorded What is your housing situation today? I have patoben hudson 04/17/[address] you [...] Date Recorded Patient Health Questionnaire-2 Score 0 09/18/2024 Comments Unknown Sex and Gender Information Value Date Recorded Sex Assigned at Female 05/02/2022 10:40 AM EDT Legal Sex Female 10:40 AM EDT Gender Identity Female 05/02/2022 10:40 AM EDT Sexual Orientation Straight 06/10/2022 12 :52 PM EST Last Filed Vital Signs Vital Sign Reading Time Taken Comments Blood Pressure 149/96 10/03/2024 1:35 PM EDT Pulse 90 10/03/2024 1:35 PM EDT Temperature 37 ??C (98.6 ??F) 10/03/2024 1:35 PM EDT Respiratory Rate 18 10/03/2024 1:35 PM EDT Oxygen Saturation 97% 10/03/2024 1:35 PM EDT Inhaled Oxygen Concentration - - Weight 113 kg (250 lb) 10/03/2024 1:35 PM EDT Height 165.1 cm (5' 5 ) 09/18/2024 9:56 AM EDT Body Mass Index 41.6 09/18/2024 9:56 AM EDT Plan of Treatment Health Maintenance Due Date Last Done Comments CT Colonography 1974 FIT DNA/Cologuard 1974 FIT 1975 FOBT 1975 Sigmoidoscopy 1974 Family Planning (PISQ) 1989 Hepatitis B Vaccines (1 of 3 - 19+ 3-dose series) 1993 Pap Smear 1995 Cervical Cancer Screening 2004 HPV/Cotest 2004 Mammogram 2014 SDOH Screening 06/24/2023 06/24/2022 Zoster Vaccines (1 of 2) 2024 Influenza Vaccine (#1) 2024 3, 04/08/2022 Postponed from 03/03/2024 (Patient Refused) Tobacco Screening 01/23/2025 01/24/2024 Alcohol/Substance Use Screening 09/18/2025 09/18/2024 COVID-19 Vaccine (2 - 2023-2 5 season) 2025 04/08/2022 Postponed from 03/03/2024 (Patient Refused) Depression Screening 09/18/2025 09/18/2024, 09/18/2024 Lipid Panel 09/19/2029 09/19/2024, 07/13/2022, 02/28/2022 DTaP/Tdap/Td Vaccines (2 - T d or Tdap) 02/26/2032 02/25/2022 Colonoscopy 05/19/2033 05/19/2023 Colorectal Cancer Screening 05/19/2033 RSV Patients and Patients Aged 60 years or older (1 - 1-dose 75+ series) 2049 HIV Screening Completed 02/28/2022 Hepatitis C Screening Completed 05/30/2022 , 05/30/2022, 02/28/2022 Pneumococcal Vaccine: 50+ Years Completed 05/18/2023 Diabetes: Hemoglobin A1C Discontinued 09/19/2024 HIB Vaccines Aged Out No longer eligi [...] Procedure Name Priority Date/Time Associated Diagnosis Comments XR CHEST 2 VIEWS Routine 10/06/2024 4:57 PM EDT STREP A NUCLEIC ACID Routine 10/06/2024 4:40 PM EDT POCT INFLUENZA B (ID NOW RAPID MOLECULAR) Routine 10/03/2024 1:54 PM EDT Cough in adult patient POCT INFLUENZA A (ID NOW RAPID MOLECULAR) Routine 10/03/2024 1:51 PM EDT Cough in adult patient POCT RAPID STREP A Routine 10/03/2024 1: 43 PM EDT Cough in adult patient POCT RAPID COVID ANTIGEN Routine 10/03/2024 1:40 PM EDT Cough in adult patient HEMOGLOBIN A1C Routine 09/19/2024 8:55 AM EDT Prediabetes HEPATIC FUNCTION PANEL Routine 09/19/2024 8:55 AM EDT Hyperlipidemia, unspecified hyperlipidemia type Prediabetes LIPID PANEL, STANDARD Routine 09/19/2024 8:55 AM EDT Hyperlipidemia, unspecified hyperlipidemia type Prediabetes BASIC METABOLIC PANEL Routine 09/19/2024 8:55 AM EDT Prediabetes SARS COV2/INFLUENZA A/B AND RSV RNA QL NAAT Routine 08/26/2024 4:08 PM EST STREP A NUCLEIC ACID Routine 08/26/2024 4:08 PM EST XR CHEST 2 VIEWS Routine 08/26/2024 3:39 PM EST HM COLONOSCOPY Routine 05/19/2023 HEPATITIS C ANTIBODY Routine 05/30/2022 3:01 PM EST HIV 1/2 ANTIGEN/ANTIBODY, FOURTH GENERATION W/RFL Routine 02/28/2022 8:46 AM EDT from Last 3 Months or Most Recently Relevant to Health Maintenance Results * XR Chest 2 Views (10/06/2024 4:57 PM EDT) Only the most recent of2 resultswithin the time period is included. Anatomical Region Laterality Modality Chest Radiographic Shahrzad ging 10/06/2024 4:57 PM EDT Narrative 10/06/2024 4:58 PM EDT ? [facility] ?[address] ?[place] [address] ?XRay Report ? Signed ? Patient: Andrea,Paula Kailey ?MR#: [id number] ?? [id number] ? : 1975 ?Acct:[id number] ? Age/Sex: 49 / F ?ADM Date: 04/06/25 ? Loc: HO.ED ? Attending Dr: ? Ordering Physician: Mariangel Patel ?? Date of Service: 10/06/24 ?? Procedure(s): XR chest 2V ?? Accession Number(s): [id number] ? cc: Mariangel Patel; Susu Gavin MD ? CLINICAL HISTORY: chest pain ? 2 view chest x-ray ? Comparison: CR/SR - XR CHEST 2V - 08/26/24 16:08 EST ? Findings: ?? No consolidation or effusion. ?? Normal size heart. ?? No acute fracture. ? IMPRESSION: ?? 1. No acute findings. ? This document has been electronically signed by: Justin Anton MD on ?? 10/06/2024 16:57:32 ? Dictated By: ?Justin Anton MD ? Signed By: ?<Electronically signed by Justin Anton MD in OV> ? 10/06/248 ? DD/ ? TD/TT: 10/06/241656 ? Track Repair Supervisor: ? Procedure Note Donalconinterpreter, Image - 10/06/2024 [place] [id number] XRay Report Signed Patient: Paula MendezMR#: [id number] : 1975Acct:[id number] Age/Sex: 49 / FADM Date: 10/06/24 Loc: HO.ED Attending Dr: Ordering Physician: Mariangel Patel Date of Service: 10/06/24 Procedure(s): XR chest 2V Accession Number(s): [id number] cc: Mariangel Patel; Susu Gavin MD CLINICAL HISTORY: chest pain 2 view chest x-ray Comparison: CR/SR - XR CHEST 2V - 08/26/24 16:08 EST Findings: No consolidation or effusion. Normal size heart. No acute fracture. IMPRESSION: 1. No acute findings. This document has been electronically signed by: Justin Anton MD on 10/06/2024 16:57:32 Dictated By: Justin Anton MD Signed By: <Electronically signed by Justin Anton MD in OV> 10/06/24 1658 DD/ 56 TD/TT: 10/06/241656 Track Repair Supervisor: [facility] External Provider IMG XR PROCEDURES Edited Result - Final * Strep A Nucleic Acid (10/06/2024 4:40 PM EDT) Only the most recent of2 resultswithin the time period is included. IDMATTHEWW SERIAL# [id number] [facility] Strep A Nucleic Acid Negative Negative [facility] Comment:All test results mus t be correlated with clinical findings.This test has not been evaluated for monitoring treatment ofinfection.Additional follow-up testing using the culture method isrequired if the result is negative and clinical symptomspersist, or in the event of an acute rheumatic feveroutbreak. 10/06/2024 4:40 PM EDT 10/06/2024 4:43 PM EDT Generic External Data Provider LAB MICROBIOLOGY - GENERAL ORDERABLES Final Result Performing Organization Address [facility] Co de Phone Number [facility] [address] [place] [phone] * Influenza B (ID NOW Rapid Molecular) (10/03/2024 1:54 PM EDT) [facility] Influenza B Negative Negative, Indeterminate [facility] Swab 10/03/2024 1:54 PM EDT Renita Sierra NP POINT OF CARE TEST ENTER/EDIT O RDERABLES Final Result Performing Organization Address [facility] Co de Phone Number [facility] [address] [place] [phone] * Influenza A (ID NOW Rapid Molecular) (10/03/2024 1:51 PM EDT) [facility] Influenza A Negative Negative, Indeterminate [facility] Swab 10/03/2024 1:51 PM EDT Renita Sierra CHAIN BUILDER POINT OF CARE TEST ENTER/EDIT O RDERABLES Final Result Performing Organization Address City/[facility]/ZIP Co de Phone Number [facility] [address] [place] [address] [phone] * POCT rapid strep A manually resulted (10/03/2024 1:43 PM EDT) [facility] Rapid Strep A Screen Negative Negative, None Detected Swab 10/03/2024 1:43 PM EDT Renita Appram CHAIN BUILDER POINT OF CARE TEST ENTER/EDIT O RDERABLES Final Result * POCT Rapid COVID Ag (10/03/2024 1:40 PM EDT) [facility] Rapid COVID Ag Negative Swab 10/03/2024 1:40 PM EDT [facility] Appram CHAIN BUILDER POINT OF CARE TEST ENTER/EDIT O RDERABLES Final Result * Hemoglobin A1c (09/19/2024 8:55 AM EDT) [facility] Hemoglobin A1c 5.7 <6.0 % [facility] Comment:Hemoglobin A1C Refer ence Range Adults: 4.8 - 6.0 % Non diabetic: < 6.0 % Goal: < 7.0 %Additional Action Suggested: > 8.0 %Note: Hemoglobin A1c results are invalid for patients with abnormal amounts of HbF. Blood transfusions may impact the HbA1c concentration in the patient sample. Estimated Average Glucose 117 mg/dL [facility] Comment:eAG = Estimated ave rage glucose which is %A1C expressed asaverage glucose, using the formula of the W4E-XmzrafgOzacztl Glucose study (ADAG), Diabetes Care, Vol.31,#8,Jan. 2007 Blood Venous blood specimen / Unknown 09/19/2024 8:55 AM EDT 09/19/2024 2:13 PM EDT us Tila Del Rosario MD LAB BLOOD ORDERABLES Final Resul t [facility] [address] [place] [address] [phone] * (ABNORMAL) Hepatic Function Panel (09/19/2024 8:55 AM EDT) Bilirubin, Total 0.4 0.0 - 1.0 mg/dL [facility] Bilirubin, Direct 0.1 0.0 - 0.5 mg/dL [facility] Aspartate Amino Transferase 32(H) 5 - 31 U/L [facility] Alanine Aminotransferase 23 0 - 31 U/L [facility] Total Protein 7.8 6.5 - 8.0 g/dL [facility] Albumin Level 3.8 3.5 - 5.0 g/dL [facility] Alkaline Phosphatase 58 39 - 117 U/L [facility] Blood Venous blood specimen / Unknown 09/19/2024 8:55 AM EDT 09/19/2024 2:17 PM EDT us Tila Del Rosario MD LAB BLOOD ORDERABLES Final Resul t [facility] [address] [place] [phone] * (ABNORMAL) Lipid Panel, Standard (09/19/2024 8:55 AM EDT) Triglycerides 144 <150 mg/dL [facility] Comment:Desirable Triglyceri de: less than 150 mg/dLBorderline High Triglyceride 150-199 mg/dLHigh Triglyceride: 200-499 mg/dLVery High Triglyceride: greater than or equal to 5OO mg/dL Cholesterol 209(H) <200 mg/dL [facility] Comment:Desirable Cholestero l: less than 200 mg/dLBorderline High Cholesterol: 200-239 mg/dLHigh Cholesterol: greater than 239 mg/dL LDL Cholesterol Calculated 142(H) <100 mg/dL [facility] Comment:Desirable LDL: less than 100 mg/dLNear Optimal/Above Optimal LDL: 110- 129 mg/dLBorderline High LDL: 130-159 mg/dLHigh LDL: 160-189 mg/dLVery High LDL: greater than or equal to 190 mg/dL HDL Cholesterol 39(L) >40 mg/dL [facility] Comment:Desirable HDL: great er than 40 mg/dL Note: This HDL assay may give artificially low results in patients with liver disease. Blood Venous blood specimen / Unknown 09/19/2024 8:55 AM EDT 09/19/2024 2:17 PM EDT Tila Del Rosario MD LAB BLOOD ORDERABLES Final Resul t Performing Organization Address [facility] Co de Phone Number [facility] [address] [place] [address] [phone] * (ABNORMAL) Basic Metabolic Panel (09/19/2024 8:55 AM EDT) Sodium 141 135 - 145 mmol/L [facility] Potassium 4.1 3.3 - 5.1 mmol/L [facility] Chloride 107 96 - 108 mmol/L [facility] Carbon Dioxide 29 22 - 29 mmol/L [facility] Anion Gap 9(L) 12 - 20 [facility] Urea Nitrogen (BUN) 15 9 - 16 mg/dL [facility] Creatinine, Serum 1.11 0.5 - 1.4 mg/dL [facility] Estimated Glomerular Filt Rate 52 [facility] Comment:Chronic Kidney Disea se: Estimated GFR < 60 mL/min/1.59x7Kocoxd Kidney Disease: Estimated GFR < 15 mL/min/1.73m2 Glucose 112 60 - 115 mg/dL [facility] Calcium 9.1 8.4 - 10.2 mg/dL [facility] Blood Venous blood specimen / Unknown 09/19/2024 8:55 AM EDT 09/19/2024 2:17 PM EDT Tila Del Rosario MD LAB BLOOD ORDERABLES Final Resul t Performing Organization Address [facility]/ZIP Co de Phone Number [facility] [address] [place] [phone] [phone] * SARS-CoV-2 RNA, Influenza A/B, and RSV RNA, Ql NAAT (08/26/2024 4:08 PM EST) Pathologist [facility] Influenza A PCR NEGATIVE Negative [facility] Influenza B PCR NEGATIVE Negative [facility] Resp Syncy Virus RNA Qual PCR NEGATIVE Negative [facility] SARS COV2 PCR NEGATIVE Negative [facility] Comment:All test results mus t [...] use by authorized laboratories.Testing performed on the [employer] GeneXpert utilizingreal-time RT-PCR.All SARS CoV2 and positive influenza A/B results arereported to [facility]. 08/26/2024 4:08 PM EST 08/26/2024 4:18 PM EST Generic External Data Provider LAB MICROBIOLOGY - GENERAL ORDERABLES Final Result [facility] [address] [place] [phone] [phone] * Hm Colonoscopy (05/19/2023) Pathologist [facility] Colonoscopy Normal Normal Narrative Susu Gavin MD - 05/19/2023 Normal path for random bx, done in [facility], report in media us Historical Provider HEALTH MAINTENANCE Final Result * Hepatitis C Ab (05/30/2022 3:01 PM EST) [facility] Hepatitis C Antibody Nonreactive Nonreactive [facility] Comment:Antibodies to HCV no t detected; does not exclude early acuteHCV infection. 05/30/2022 3:01 PM EST 05/30/2022 3:01 PM EST [facility] External Provider LAB BLO OD ORDERABLES Final Result [facility] [address] [place] [phone] * HIV 1/2 ANTIGEN/ANTIBODY,FOURTH GENERATION W/RFL (02/28/2022 8:46 AM EDT) HIV-1/2 ANTIGEN AND ANTIBODIES, 4TH GENERATION W/ REFLEX NON-REACT MARA NON-REACT MARA [facility] Comment: HIV-1 antigen and HIV-1/HIV-2 [...] ? For additional information please refer to http://education.Kitchon/faq/UPM143 (This link is being provided for informational/ educational purposes only.) ? The performance of this assay has not been clinically validated in patients less than 2 years old. ?? 02/28/2022 8:46 AM EDT Susu Gavin MD LAB BLOOD ORDERABLES Final Re sult [facility] [address] from Last 3 Months or Most Recently Relevant to Health Maintenance Insurance [facility] C3 Care Teams General Hardware Salesperson Relationship Specialty Start Date End Date Susu Gavin MD [address] [place] [phone] PCP - General Family Medicine 02/25/22
--- OUTSIDE RECORDS SUMMARY | 2024-10-06 17:13 | XMS_ITS | Encounter Summary ---
Author Organization [employer] Address [address] [place] [address] Care Team Providers Care Billboard Installer Name Role Phone Susu Gavin MD Primary Care Provider [phone] Reason for Visit * Reason Onset Date Comments Results 10/10/2023 Encounter Details Date Type Department Care Team ([facility] st Contact Info) Description 10/10/2023 Telephone [facility] [address] [place] [address] Susu Gavin MD [address] [place] [address] Results Social History Tobacco Use Types Packs/Day [...] documented in this encounter Plan of Treatment Not on file documented as of this encounter Visit Diagnoses Not on filedocumented in this encounter Additional Health Concerns Assessment Noted Time PHQ-9 Depression Total Score: 4 07/28/19 23 1:52 PM EST documented as of this encounter Care Teams Billboard Installer Relationship Specialty Start Date End Date Susu Gavin MD [address] [place] [address] PCP - General Family Medicine 02/25/22 documented as of this encounter
--- OUTSIDE RECORDS SUMMARY | 2024-10-06 17:13 | XMS_ITS | Clinical Summary ---
Author Organization [facility] Facility Address [address] [place] [phone] Care Team Providers Care Job Estimator Name Role Phone Susu Gavin MD Primary Care Provider [phone] Allergies No known active allergies Medications ProAir [...] Diabetes: Ophthalmology Exam 07/12/2023 07/12/2022 Influenza Vaccine (Season Ended) 2025 05/18/20 23, 04/08/2022 Pneumococcal Vaccine: Pediat rics (0 to 5 Years) and At-Risk Patients (6 to 64 Years) Completed 05/18/2023 Insurance [place]ID [place] [facility] [address] [place]ICAID [place] Care Teams Job Estimator Relationship Specialty Start Date End Date Susu Gavin MD PCP - General Family Medicine 03/14/22
--- OUTSIDE RECORDS SUMMARY | 2024-10-06 17:13 | XMS_ITS | Encounter Summary ---
Author Organization [employer] Address [address] [place] [address] Care Team Providers Care Contact Lens Edge Buffer Name Role Phone Susu Gavin MD Primary Care Provider [phone] Reason for Visit * Reason Comments Cough Sore Throat Encounter Details Date Type Department Care Team ([facility] Contact Info) Description 10/03/2024 1:40 PM EDT Office Visit [facility] [place] [address] [place] [address] Cough in adult patient Social History Tobacco Use Types Packs/Day Years [...] PM EST documented as of this encounter Last Filed Vital Signs Vital Sign Reading Time Taken Comments Blood Pressure 149/96 10/03/2024 1:35 PM EDT Pulse 90 10/03/2024 1:35 PM EDT Temperature 37 ??C (98.6 ??F) 10/03/2024 1:35 PM EDT Respiratory Rate 18 10/03/2024 1:35 PM EDT Oxygen Saturation 97% 10/03/2024 1:35 PM EDT Inhaled Oxygen Concentration - - Weight 113 kg (250 lb) 10/03/2024 1:35 PM EDT Height - - Body Mass Index 41.6 09/18/2024 9:56 AM EDT documented in this encounter Plan of Treatment Not on file documented as of this encounter Procedures Procedure Name Priority Date/Time Associated Diagnosis Comments POCT INFLUENZA B (ID NOW RAPID MOLECULAR) Routine 10/03/2024 1:54 PM EDT Cough in adult patient POCT INFLUENZA A (ID NOW RAPID MOLECULAR) Routine 10/03/2024 1:51 PM EDT Cough in adult patient POCT RAPID STREP A Routine 10/03/2024 1: 43 PM EDT Cough in adult patient POCT RAPID COVID ANTIGEN Routine 10/03/2024 1:40 PM EDT Cough in adult patient documented in this encounter Results * Influenza B (ID NOW Rapid Molecular) (10/03/2024 1:54 PM EDT) Influenza B Negative Negative, Indeterminate [facility] Swab 10/03/2024 1:54 PM EDT us Renita Appram RENTAL COUNTER CLERK POINT OF CARE TEST ENTER/EDIT O RDERABLES Final Result Performing Organization Address City/[facility]/ZIP Co de Phone Number [facility] [address] [place] [phone] * Influenza A (ID NOW Rapid Molecular) (10/03/2024 1:51 PM EDT) [facility] Influenza A Negative Negative, Indeterminate [facility] Swab 10/03/2024 1:51 PM EDT us Renita Appram RENTAL COUNTER CLERK POINT OF CARE TEST ENTER/EDIT O RDERABLES Final Result Performing Organization Address [facility] Co de Phone Number [facility] [address] [place] [phone] * POCT rapid strep A manually resulted (10/03/2024 1:43 PM EDT) [facility] Rapid Strep A Screen Negative Negative, None Detected Swab 10/03/2024 1:43 PM EDT us Renita Appram RENTAL COUNTER CLERK POINT OF CARE TEST ENTER/EDIT O RDERABLES Final Result * POCT Rapid COVID Ag (10/03/2024 1:40 PM EDT) [facility] Rapid COVID Ag Negative Swab 10/03/2024 1:40 PM EDT us Renita Appram RENTAL COUNTER CLERK POINT OF CARE TEST ENTER/EDIT O RDERABLES Final Result documented in this encounter Visit Diagnoses Diagnosis Cough in adult patient documented in this encounter Additional Health Concerns Assessment Noted Time PHQ-9 Depression Total Score: 0 09/19/19 25 10:28 AM EDT documented as of this encounter Care Teams Contact Lens Edge Buffer Relationship Specialty Start Date End Date Susu Gavin MD [address] [place] [address] PCP - General Family Medicine 02/25/22 documented as of this encounter
--- OUTSIDE RECORDS SUMMARY | 2024-10-06 17:13 | XMS_ITS | Encounter Summary ---
Author Organization [employer] Address [address] [place] [address] Care Team Providers Care Ripening Room Hand Name Role Phone Susu Gavin MD Primary Care Provider Encounter Details Date Type Department Care Team ([facility] st Contact Info) Description 10/06/2024 Orders Only GENERIC EXTERNAL DATA DEPARTMENT Provider, Generic External Data Social History Tobacco Use Types Packs/Day Years [...] as of this encounter Plan of Treatment Not on file documented as of this encounter Procedures Procedure Name Priority Date/Time Associated Diagnosis Comments XR CHEST 2 VIEWS Routine 10/06/2024 4:57 PM EDT STREP A NUCLEIC ACID Routine 10/06/2024 4:40 PM EDT documented in this encounter Results * XR Chest 2 Views (10/06/2024 4:57 PM EDT) Anatomical Region Laterality Modality Chest Radiographic Shahrzad ging 10/06/2024 4:57 PM EDT Narrative 10/06/2024 4:58 PM EDT ? [facility] ?[address] ?[place] [address] ?XRay Report ? Signed ? Patient: Paula Mendez ?MR#: [id number] ?? [id number] ? : 1975 ?Acct:[id number] ? Age/Sex: 49 / F ?ADM Date: 10/06/24 ? Loc: HO.ED ? Attending Dr: ? Ordering Physician: Mariangel Patel ?? Date of Service: 10/06/24 ?? Procedure(s): XR chest 2V ?? Accession Number(s): [id number] ? cc: Mariangel Patel; Susu Gavin MD [...] by Justin Anton MD in OV> ? 10/06/241657 ? DD/ 56 ? TD/TT: 04/06/25 1657 ? Communications Billing Analyst: ? Procedure Note Brody, Image - 10/06/[address] [address] XRay Report Signed Patient: Paula MendezMR#: [id number] : 1975Acct:[id number] Age/Sex: 49 / FADM Date: 10/06/24 Loc: HO.ED Attending Dr: Ordering Physician: Mariangel Patel Date of Service: 10/06/24 Procedure(s): XR chest 2V Accession Number(s): [id number] cc: Mariangel Patel; Susu Gavin MD CLINICAL [...] signed by Justin Anton MD in OV> 10/06/248 DD/ TD/TT: 10/06/247 Communications Billing Analyst: [facility] External Provider IMG XR PROCEDURES Edited Result - Final * Strep A Nucleic Acid (10/06/2024 4:40 PM EDT) IDNOW SERIAL# [id number] [facility] Strep A Nucleic Acid Negative Negative [facility] Comment:All test results mus t be correlated with clinical findings.This test has not been evaluated for monitoring treatment ofinfection.Additional follow-up testing using the culture method isrequired if the result is negative and clinical symptomspersist, or in the event of an acute rheumatic feveroutbreak. 10/06/2024 4:40 PM EDT 10/06/2024 4:43 PM EDT us Generic External Data Provider LAB MICROBIOLOGY - GENERAL ORDERABLES Final Result [facility] [address] [place] [phone] [phone] documented in this encounter Visit Diagnoses Not on filedocumented in this encounter Additional Health Concerns Assessment Noted Time PHQ-9 Depression Total Score: 0 09/19/19 25 10:28 AM EDT documented as of this encounter Care Teams Ripening Room Hand Relationship Specialty Start Date End Date Susu Gavin MD [address] [place] [address] PCP - General Family Medicine 02/25/22 documented as of this encounter
--- OUTSIDE RECORDS SUMMARY | 2024-10-06 17:13 | XMS_ITS | Patient Health Record ---
Author Organization [facility] Address [address] [place], [place] [id number] Care Team Providers Care Coke Crusher Operator Name Role Phone Katelin Ortiz Primary Care Provider Savanna Laboy Unavailable Reason For Referral No Information Plan Of Treatment No Information
--- OUTSIDE RECORDS SUMMARY | 2024-10-06 17:13 | XMS_ITS | Continuity of Care Document ---
Author Organization [facility] Address [address] [place] [address] Phone Care Team Providers Care Strand Forming Machine Operator Name Role Phone [facility], Peeler Operator Unavailable Unavaila ble Allergies, Adverse Reactions, Alerts [...] CBC, Platelet, No Differential CMP14+LP+Hb A1c+eAG Panel 494997 Thyroid Profile II Vitamin D, 25-Hydroxy OFFICE/OUTPATIENT VISIT, NEW Advance Directives Directive Yes / No Effective Date File Name No Information Encounters Encounter Description Practice Location Reason(s) For Visit Diagnoses Date Provider Providers Copied on Encounter [facility], [address], [place], [place], [id number], [place] tel:[phone] [facility] [place] No Information 2 [facility] Peeler Operator. [address], [place], [address], [place]. tel:[phone] [facility], [address], [place], [place], [id number], [place] tel:[phone] [facility] B[place]u [place] Foot pain, bilateral 2 Eladio Pacheco. [address], [place], [address], [place]. tel:[phone] OFFICE/OUTPA TIENT VISIT, EST [facility], [facility], [place], [place], [id number], [place] tel:+ [phone] [facility] [place] [facility] (chief complaint) Foot neuralgia, unspecified lateralityNeu ropathyPredia betes 1 Benson Gandhi. [address], [place], [address], [place]. tel:[phone] OFFICE/OUTPA TIENT VISIT, EST [facility], [address], [place], [place], [id number], [place] tel:[phone] [facility] [place] URI (chief complaint) Body mass index [BMI] 40.0-44.9, adultEncounte r for screening for respiratory tuberculosisU RI, acuteLeft ear painMild persistent asthma with acute exacerbation 1 Eladio Pacheco. [address], [place], [address], [place]. tel: [phone] [facility], [address], [place], [place], [id number], [place] tel:[phone] [facility] [place] No Information 1 Eladio Pacheco. [address], [place], [address], [place]. tel:[phone] OFFICE/OUTPA TIENT VISIT, EST [facility], [address], [place], [place], [id number], [place] tel: [facility] [place] hypertension (chief complaint)F/U xray of feet (foot pain) (chief complaint) Body mass index [BMI] 40.0-44.9, adultEncounte r for screening for respiratory tuberculosisP rediabetesMor bid obesityStage 3a chronic kidney diseasePain in left footEssential (primary) hypertensionM ild intermittent asthma without complication 1 Eladio Pacheco. [address], [place], [address], [place]. tel: [phone] [facility], [address], [place], [place], [id number], [place] tel: [facility] Bindu [place] Laboratory exam ordered as part of routine general medical examination 1 Eladio Pacheco. [address], [place], [address], [place]. tel:[phone] OFFICE/OUTPA TIENT VISIT, NEW [facility], [address], [place], [place], [id number], [place] tel:[phone] [facility] [place] foot pain (chief complaint) Body mass index [BMI] 40.0-44.9, adultEncounte r for screening for respiratory tuberculosisE levated blood pressure readingFoot pain, bilateralPain in left foot Eladio Pacheco. [address], [place], [address], [place]. tel:[phone] Family History Family Member Type Diagnosis Age At Onset Mother Problem Alive and well Father Problem Alive and well Immunizations Vaccine Date Status Comments Flu Inj Quad, 0.5 mL MDV refused Alpa rce: New Immunization Record Td preservative free refused Source: New Immunization Record TDAP refused Source: New Imm unization Record Payers Payer name Insurance type Covered alliance party ID Authoriza tion(s) Medicaid [facility] [id number] Medicaid [facility] [id number] Social History Type Description Quantity Date Captured [...] Due on due Goal Mammogram. Due on 1 due Goal FOBT (3 Cards Given). Due on due Goal Depression screening. Due on due Goal MMR Vaccine. Due on due Goal Occult Blood, Fe yaquelin, [place] (FIT). Due on due Goal Cologuard. Due on due Goal Tdap. Due on due Goal Colonoscopy. Due on due Goal Td vaccine. Due on due Goal Flu Vaccine. Due on due Goal Cervical Cancer Screening. D ue on due Goal Cervical Cancer Screening. D ue on due Goal MMR Vaccine. Due on due Goal Depression screening. Due on due Goal FOBT (3 Cards Given). Due on due Goal Flu Vaccine. Due on due Goal Mammogram. Due on due Goal Occult Blood, Fe yaquelin, [place] (FIT). Due on due Goal Colonoscopy. Due on due Goal Tdap. Due on due Goal Cologuard. Due on due Goal Td vaccine. Due on due Goal Dietary manageme nt education, guidance, and counseling completed Goal Cervical Cancer Screening. D ue on due Goal Depression screening. Due on due Goal Occult Blood, Fe yaquelin, [place] (FIT). Due on due Goal Cologuard. Due on due Goal Flu Vaccine. Due on due Goal Tdap. Due on due Goal Colonoscopy. Due on due Goal Mammogram. Due on due Goal FOBT (3 Cards Given). Due on due Goal Td vaccine. Due on due Goal MMR Vaccine. Due on due Goal Dietary manageme nt education, guidance, and counseling completed Goal Mammogram. Due on due Goal Td vaccine. Due on due Goal MMR Vaccine. Due on due Goal Colonoscopy. Due on due Goal FOBT (3 Cards Given). Due on due Goal Cologuard. Due on due Goal Depression screening. Due on due Goal Flu Vaccine. Due on due Goal Tdap. Due on due Goal Occult Blood, Fe yaquelin, [place] (FIT). Due on due Goal Occult Blood, Fe [...] Referred To: [facility] [place] [phone] Ordered: Referrals: Orthopedics. [facility]. Evaluate and treat ordered Referral Referred To: Dr. [facility] [address] [place], [phone] Ordered: Referrals: Neurology. Dr. [facility]. Evaluate and treat ordered Referral Referred To: [facility] [address] [place], [phone] Ordered: Referrals: Vascular. [facility]. Location: Dr Kenzie Rodriguez. Evaluate and treat ordered Referral Referred To: Dr. Knowles [place], [place] [phone] Ordered: Referrals: [facility]. Dr. Knowles. Evaluate [...] hrs for cough. Related to URI, acute Negative screening Related to En counter for screening for respiratory tuberculosis BMI-- 40--Obese - co ntinue eating healthy. Stay active.Return to clinic in 1-4 weeks, sooner if symptoms worsen. Related to Body mass index [BMI] 40.0-44.9, adult Nebulizer with Albut sherron treatment done in [...] provider for Diabetes management Related to Neuropathy Referred to Neurolog y Rx a trail of Capsicin Related to Foot neuralgia, unspecified laterality Dietary management e ducation, guidance, and counseling Related to Body mass index [BMI] 40.0-44.9, adult Giving encouragement to exercise Related to Body [...] En counter for screening for respiratory tuberculosis Continue with diet and exercise. Related to Morbid obesity Last A1c 6.1 % -- St art Lifestyle and diet changes. Add Metformin 500 mg 1 tablet 1 to 2 x a day with or without meals. Repeat A1c in 3 months. Related to Prediabetes Refer to Podiatry fo r consult, further evaluation. Related to Pain in left foot GFR - 58- normal is 60 -- [...] En counter for screening for respiratory tuberculosis Reviewed possible ca uses and may have high blood pressure that is undiagnosed. If left untreated will cause severe consequences. Get lab work today. Monitor BP at home, bring log to next visit. Related to Elevated blood pressure reading As above. Take Ibupr ofen 800 mg 1 tablet 2 x a day for 2 days, then only for moderate to severe pain. Related to Pain in left foot Reviewed possible ca uses --get an X-ray of both feet. Start Baclofen 10 mg 1 tablet at bedtime, and increase to 3 x a day as tolerated. Will refer to glass sagger. Related to Foot pain, bilateral Dietary management e ducation, guidance, and counseling Related to Body mass index [BMI] 40.0-44.9, adult Giving encouragement to exercise Related to Body mass index [BMI] 40.0-44.9, adult Assessments Type Assessment Date No Information
[2024-10-06 17:33] LABS: Influenza A PCR NEGATIVE (Negative); Influenza B PCR NEGATIVE (Negative); Resp Syncy Virus RNA Qual PCR NEGATIVE (Negative); SARS COV2 PCR INHOUSE NEGATIVE (Negative)
[2024-10-06] MEDS: Albuterol Sulfate 2.5 MG, Albuterol/Iprat 2.5/0.5MG 3 ML 3 ML INHALE (17:41)
[2024-10-06 17:43] VITALS: PULSE 80; RESP 18; O2SAT 96
[2024-10-06] MEDS: predniSONE 20 MG TABLET 60 MG PO (17:54)
[2024-10-06] MEDS: cefuroxime axetiL 500 MG TABLET PO (17:57)
[2024-10-06 18:00] VITALS: BP 133/96; PULSE 113; RESP 16; TEMP 36.7
== END 2024-10-06 18:04 | disposition home or self-care (01) ==
PROVIDERS: Physician Assistant Medical; Emergency Provider Internal Medicine; PCP Family Medicine
DX: J40 Bronchitis, not specified as acute or chronic (principal); R05.9 Cough, unspecified; J02.9 Acute pharyngitis, unspecified; Z03.818 Encounter for observation for suspected exposure to other biological agents ruled out
CPT/HCPCS: 0241U; 71046; 87651; 93005; 94640; 99284

== ENCOUNTER → 2024-10-06 15:54 | Outpatient (BNV) | payer MEDICAID, SELFPAY | PROVIDERS: Emergency Provider Internal Medicine; PCP Family Medicine; Visit Provider Internal Medicine Cardiovascular Disease | DX: R94.31 Abnormal electrocardiogram [ECG] [EKG] (principal); R07.9 Chest pain, unspecified | CPT/HCPCS: 93010 ==

== ENCOUNTER → 2024-10-06 16:09 | Outpatient (BNV) | payer MEDICAID, SELFPAY | PROVIDERS: PCP Family Medicine; Visit Provider Radiology Diagnostic Radiology | DX: R07.9 Chest pain, unspecified (principal) | CPT/HCPCS: 71046 ==

== ENCOUNTER 2024-10-21 20:18 | Emergency (ER) | payer MEDICAID, SELFPAY ==
--- NOTE | ~2024-10-21 | XR_ITS ---
CLINICAL HISTORY: chest pain 2 view chest x-ray Comparison: CR - XR CHEST 2V - 10/06/24 16:30 EDT Findings: The lungs are clear. Normal size heart. No acute fracture. IMPRESSION: 1. No acute findings. This document has been electronically signed by: Juan Carlos Miranda MD on 10/21/2024 21:12:01
--- NOTE | 2024-10-21 20:20 | ECG_ITS ---
Test Reason : chest pain Blood Pressure : */* mmHG Vent. Rate : 75 BPM Atrial Rate : 75 BPM P-R Int : 152 ms QRS Dur : 70 ms QT Int : 396 ms P-R-T Axes : 47 40 48 degrees QTcB Int : 442 ms Normal sinus rhythm Normal ECG When compared with ECG of 06-Oct-2024 16:01, Nonspecific T wave abnormality no longer evident in Inferior leads Nonspecific T wave abnormality, improved in Anterolateral leads Referred By: Jessi Guan Electronically Signed By: RADHA BLANCO
[2024-10-21 20:25] VITALS: BP 164/88; PULSE 78; RESP 20; TEMP 37.1; O2SAT 99; BMI 43.3
--- NOTE | 2024-10-21 20:26 | ED.GENADULT ---
HPI - General Adult General Chief complaint: Chest Pain Stated complaint: chest pain,coughing Time Seen by Provider: 10/21/24 22:37 Related Data Home Medications ?Medication ?Instructions ?Recorded ?Confirmed amitriptyline 25 mg tablet 25 mg PO BEDTIME 02/16/23 02/28/23 amlodipine 5 mg tablet 5 mg PO DAILY 02/16/23 02/28/23 baclofen 10 mg tablet 10 mg PO TID 02/16/23 02/28/23 losartan 100 mg tablet 100 mg PO DAILY 02/16/23 02/28/23 metformin 500 mg tablet 500 mg PO DAILY 02/16/23 02/28/23 omeprazole 20 mg capsule,delayed 20 mg PO DAILY 02/16/23 02/28/23 release rosuvastatin 20 mg tablet 20 mg PO DAILY 02/16/23 02/28/23 albuterol sulfate 90 mcg/actuation 2 puff inhalation Q4-6H PRN 11/28/23 aerosol inhaler (ProAir HFA) cholecalciferol (vitamin D3) 125 125 mcg PO DAILY 11/28/23 mcg (5,000 unit) capsule gabapentin 100 mg capsule 100 mg PO TID 11/28/23 ketotifen fumarate 0.025 % (0.035 1 drp ophthalmic (eye) BID 11/28/23 %) eye drops Previous Rx's ?Medication ?Instructions ?Recorded naloxone 4 mg/actuation nasal 4 mg intranasal Q2M PRN opioid 02/12/24 spray (Narcan) overdose #2 ea oxycodone 5 mg tablet 5 mg PO Q8H PRN pain (scale score 05/16/24 7-10) 7 days #21 tabs benzocaine 15 mg-menthol 2.6 mg 1 prieto mucous membrane Q2-4H PRN 08/26/24 lozenges (Cepacol Sore Throat sore throat #16 ea (benzocaine-menthol)) benzonatate 100 mg capsule 100 mg PO BID PRN cough #14 caps 08/26/24 albuterol sulfate 2.5 mg/3 mL 2.5 mg (3 mL) inhalation Q4-6H PRN 10/06/24 (0.083 %) solution for nebulization shortness of breath or wheezing #90 mL cefuroxime axetil 500 mg tablet 500 mg PO BID 7 days #14 tabs 10/06/24 prednisone 20 mg tablet 40 mg (2 x 20 mg) PO DAILY #10 tabs 10/06/24 azithromycin 250 mg tablet See Rx Instructions PO .COMPLEX 10/21/24 upper resp infection #6 tabs prednisone 20 mg tablet 40 mg (2 x 20 mg) PO DAILY #10 tabs 10/21/24 Allergies Allergy/AdvReac Type Severity Reaction Status Date / Time No Known Allergies Allergy Verified 10/21/24 20:29 ON LICENSE OF [facility] Past Medical History Medical History Ascending aorta dilatation Chronic bilateral thoracic back pain Foot pain, bilateral Vitamin D deficiency Hyperlipidemia Plantar fasciitis Moderate persistent asthma Stage 3a chronic kidney disease Proteinuria Other cervical disc degeneration at C4-C5 level Asthma Pre-diabetes HTN (hypertension) Surgical History Fissure in ano H/O rectal sphincterotomy History of cholecystectomy Hx of tonsillectomy H/O: hysterectomy Social History Social History Alcohol intake: never Patient Tobacco Use Status: Never used Tobacco Advance Directives: No Advance Directives Information Provided: No Do you have a plan to hurt others: No Plan Physical Exam ED Vital Signs: Vital Signs - 24 hr 10/21/24 20:25 10/21/24 22:25 Temperature 98.7 F 98.2 F Pulse Rate 78 76 Respiratory Rate 20 18 Blood Pressure 164/88 H 151/79 H Pulse Oximetry 99 95 Oxygen Delivery Method Room Air Room Air BMI result Body Mass Index 43.3 Course Course Course Narrative: This is a rapid medical exam performed by Latonia Guan NP: Additional HPI, ROS, PE not included below will be deferred to primary provider. Patient is a 49-year-old female with history of CKD 3a, ascending aorta dilatation, obesity presenting to the ED with complaint of ongoing chest pain for the past few weeks. Seen here on 10/06, treated for bronchitis with abx and prednisone. Still having chest pain which she feels is keeping her from taking a full inspiration. Plan: EKG labs, CXR Medical Decision Making Lab Data 10/21/24 20:39 10/21/24 20:39 Labs: Lab Results 04/21/25 Range/Units 20:39 WBC 9.6 (4.8-10.8) X10*3/uL RBC 4.06 L (4.20-5.50) X10*6/uL Hgb 12.5 (12.0-16.0) g/dl Hct 37.2 (37.0-47.0) % MCV 91.6 (80.0-98.0) fL MCH 30.8 (27.0-33.0) pg MCHC 33.6 (31.0-35.0) g/dl RDW 12.1 (11.0-16.0) % Plt Count 253 (160-400) X10*3/uL MPV 10.3 (9.4-12.3) fL Immature Gran % (Auto) 0.2 (0.0-0.4) % Neut % (Auto) 53.1 (45-73) % Lymph % (Auto) 37.0 (20-40) % [place] % (Auto) 7.2 (2-11) % Eos % (Auto) 1.8 (0-4) % Baso % (Auto) 0.7 (0-2) % Lymph # (Auto) 3.6 (1.2-4.9) X10*3/uL [place] # (Auto) 0.7 (0.1-1.2) X10*3/uL Eos # (Auto) 0.2 (0.0-0.4) X10*3/uL Baso # (Auto) 0.1 (0.0-0.2) X10*3/uL Abs Immat Gran (auto) 0.02 (0.00-0.03) X10*3/uL Absolute Neuts (auto) 5.1 (2.0-8.3) x10*3/uL Absolute Nucleated RBC 0.000 (0.0-0.012) X10*3/uL Nucleated RBC % (auto) 0.0 (0.0-0.2) /100WBC PT 11.3 (10.9-12.4) SEC INR 1.0 (0.9-1.1) Sodium 143 (135-145) mmol/L Potassium 4.5 (3.3-5.1) mmol/L Chloride 107 (96-108) mmol/L Carbon Dioxide 26 (22-29) mmol/L Anion Gap 15 (12-20) BUN 11 (9-16) mg/dL Creatinine 1.39 (0.5-1.4) mg/dL Estim Creat Clear Calc 62.1 Estimated GFR 40 Random Glucose 102 (60-115) mg/dL Calcium 9.2 (8.4-10.2) mg/dL Total Bilirubin 0.4 (0.0-1.0) mg/dL AST 32 H (5-31) U/L ALT 24 (0-31) U/L Alkaline Phosphatase 57 (39-117) U/L Troponin I High Sens < 2.7 (<3.5-17.0) ng/L Total Protein 7.4 (6.5-8.0) g/dL Albumin 3.9 (3.5-5.0) g/dL Influenza Type A (PCR) NEGATIVE (Negative) Influenza Type B (PCR) NEGATIVE (Negative) RSV RNA Qual (PCR) NEGATIVE (Negative) SARS-CoV-2 RNA (RT-PCR) NEGATIVE (Negative) Discharge Plan Discharge Clinical Impression: Atypical chest pain Patient Disposition: Home, Self-Care Instructions: Chest Pain (ED) Prescriptions: New azithromycin 250 mg tablet See Rx Instructions .ROUTE .COMPLEX Qty: 6 0RF Rx Instructions: take 500 mg today (day 1), then 250 mg for 4 days (days 2-5) prednisone 20 mg tablet 40 mg PO DAILY Qty: 10 0RF No Action benzonatate 100 mg capsule 100 mg PO BID PRN (Reason: cough) Qty: 14 0RF Cepacol Sore Throat (lester-men) 15-2.6 mg lozenge 1 prieto mucous membrane Q2-4H PRN (Reason: sore throat) Qty: 16 0RF prednisone 20 mg tablet 40 mg PO DAILY Qty: 10 0RF cefuroxime axetil 500 mg tablet 500 mg PO BID 7 Days Qty: 14 0RF albuterol sulfate 2.5 mg /3 mL (0.083 %) solution for nebulization 2.5 mg inhalation Q4-6H PRN (Reason: shortness of breath or wheezing) Qty: 90 0RF amlodipine 5 mg tablet 5 mg PO DAILY omeprazole 20 mg capsule,delayed release(DR/EC) 20 mg PO DAILY baclofen 10 mg tablet 10 mg PO TID metformin 500 mg tablet 500 mg PO DAILY amitriptyline 25 mg tablet 25 mg PO BEDTIME losartan 100 mg tablet 100 mg PO DAILY rosuvastatin 20 mg tablet 20 mg PO DAILY gabapentin 100 mg capsule 100 mg PO TID cholecalciferol (vitamin D3) 125 mcg (5,000 unit) capsule 125 mcg PO DAILY albuterol sulfate [ProAir HFA] 90 mcg/actuation HFA aerosol inhaler 2 puff inhalation Q4-6H PRN ketotifen fumarate 0.025 % (0.035 %) drops 1 drp ophthalmic (eye) BID naloxone [Narcan] 4 mg/actuation spray,non-aerosol 4 mg intranasal Q2M PRN (Reason: opioid overdose) Qty: 2 0RF Rx Instructions: spray 1 dose into ONE nostril; alternate nostrils w each dose until help arrives oxycodone 5 mg tablet 5 mg PO Q8H PRN (Reason: pain (scale score 7-10)) 7 Days Qty: 21 0RF Rx Instructions: Partial Fill upon patient request. Referrals: Susu Gavin MD [Primary Care Provider] - 10/23/24 Print Language: Italian
[2024-10-21 20:44] LABS: MANUAL DIFF FLAG NO
[2024-10-21 20:45] LABS: Basophils Absolute Auto 0.1 X10*3/uL (0.0-0.2); Basophils Percent Auto 0.7 % (0-2); Eosinophils Absolute Auto 0.2 X10*3/uL (0.0-0.4); Eosinophils Percent Auto 1.8 % (0-4); Hematocrit 37.2 % (37.0-47.0); Hemoglobin 12.5 g/dl (12.0-16.0); Imm Gran Abs Auto 0.02 X10*3/uL (0.00-0.03); Imm Gran Pct Auto 0.2 % (0.0-0.4); Lymphocytes Absolute Auto 3.6 X10*3/uL (1.2-4.9); Mean Corpuscular HGB Conc 33.6 g/dl (31.0-35.0); Mean Corpuscular Hemoglobin 30.8 pg (27.0-33.0); Mean Corpuscular Volume 91.6 fL (80.0-98.0); Mean Platelet Volume 10.3 fL (9.4-12.3); Monocytes Absolute Auto 0.7 X10*3/uL (0.1-1.2); Monocytes Percent Auto 7.2 % (2-11); Neutrophils Absolute Auto 5.1 x10*3/uL (2.0-8.3); Neutrophils Percent Auto 53.1 % (45-73); Platelet Count 253 X10*3/uL (160-400); Red Blood Count 4.06 X10*6/uL (4.20-5.50); Red Cell Distribution Width 12.1 % (11.0-16.0); White Blood Count 9.6 X10*3/uL (4.8-10.8)
[2024-10-21 20:51] LABS: Prothrombin Time 11.3 SEC (10.9-12.4)
[2024-10-21 20:59] LABS: Alanine Aminotransferase 24 U/L (0-31); Albumin Level 3.9 g/dL (3.5-5.0); Alkaline Phosphatase 57 U/L (39-117); Anion Gap 15 (12-20); Aspartate Amino Transferase 32 U/L (5-31); Bilirubin Total 0.4 mg/dL (0.0-1.0); Blood Urea Nitrogen 11 mg/dL (9-16); Calcium 9.2 mg/dL (8.4-10.2); Carbon Dioxide 26 mmol/L (22-29); Chloride 107 mmol/L (96-108); Creatinine Clr Calc Pharmacy 62.1; Estimated Glomerular Filt Rate 40; Glucose Random 102 mg/dL (60-115); Potassium 4.5 mmol/L (3.3-5.1); Sodium 143 mmol/L (135-145); Total Protein 7.4 g/dL (6.5-8.0)
[2024-10-21 21:08] LABS: Troponin-I High Sensitivity < 2.7 ng/L (<3.5-17.0)
[2024-10-21 21:22] LABS: Influenza A PCR NEGATIVE (Negative); Influenza B PCR NEGATIVE (Negative); Resp Syncy Virus RNA Qual PCR NEGATIVE (Negative); SARS COV2 PCR INHOUSE NEGATIVE (Negative)
[2024-10-21 22:25] VITALS: BP 151/79; PULSE 76; RESP 18; TEMP 36.8; O2SAT 95
--- NOTE | 2024-10-21 22:46 | ED_ITS ---
HPI - Chest Pain General Chief Complaint: Chest Pain Stated Complaint: chest pain,coughing Time Seen by Provider: 10/21/24 22:37 History of Present Illness HPI narrative: Patient is a 49-year-old female presents today with having coughing upper respiratory symptoms also having chest pain that lasts for a few sec each time when she coughs. She was diagnosed with bronchitis last week. Given steroids and antibiotics. Has a history of asthma. Has a history of hypertension. No history of diabetes, high cholesterol, smoking, mi. patient from home. No family history of [place]. No travel history no leg swelling. No history of blood clots in the past. Related Data Home Medications ?Medication ?Instructions ?Recorded ?Confirmed amitriptyline 25 mg tablet 25 mg PO BEDTIME 02/16/23 02/28/23 amlodipine 5 mg tablet 5 mg PO DAILY 02/16/23 02/28/23 baclofen 10 mg tablet 10 mg PO TID 02/16/23 02/28/23 losartan 100 mg tablet 100 mg PO DAILY 02/16/23 02/28/23 metformin 500 mg tablet 500 mg PO DAILY 02/16/23 02/28/23 omeprazole 20 mg capsule,delayed 20 mg PO DAILY 02/16/23 02/28/23 release rosuvastatin 20 mg tablet 20 mg PO DAILY 02/16/23 02/28/23 albuterol sulfate 90 mcg/actuation 2 puff inhalation Q4-6H PRN 11/28/23 aerosol inhaler (ProAir HFA) cholecalciferol (vitamin D3) 125 125 mcg PO DAILY 11/28/23 mcg (5,000 unit) capsule gabapentin 100 mg capsule 100 mg PO TID 11/28/23 ketotifen fumarate 0.025 % (0.035 1 drp ophthalmic (eye) BID 11/28/23 %) eye drops Previous Rx's ?Medication ?Instructions ?Recorded naloxone 4 mg/actuation nasal 4 mg intranasal Q2M PRN opioid 02/12/24 spray (Narcan) overdose #2 ea oxycodone 5 mg tablet 5 mg PO Q8H PRN pain (scale score 05/16/24 7-10) 7 days #21 tabs benzocaine 15 mg-menthol 2.6 mg 1 prieto mucous membrane Q2-4H PRN 08/26/24 lozenges (Cepacol Sore Throat sore throat #16 ea (benzocaine-menthol)) benzonatate 100 mg capsule 100 mg PO BID PRN cough #14 caps 08/26/24 albuterol sulfate 2.5 mg/3 mL 2.5 mg (3 mL) inhalation Q4-6H PRN 10/06/24 (0.083 %) solution for nebulization shortness of breath or wheezing #90 mL cefuroxime axetil 500 mg tablet 500 mg PO BID 7 days #14 tabs 10/06/24 prednisone 20 mg tablet 40 mg (2 x 20 mg) PO DAILY #10 tabs 10/06/24 azithromycin 250 mg tablet See Rx Instructions PO .COMPLEX 10/21/24 upper resp infection #6 tabs prednisone 20 mg tablet 40 mg (2 x 20 mg) PO DAILY #10 tabs 10/21/24 Allergies Allergy/AdvReac Type Severity Reaction Status Date / Time No Known Allergies Allergy Verified 10/21/24 20:29 Review of Systems 2 Review of Systems: Positive coughing upper respiratory symptoms Positive chest pain that lasts 1-2 seconds Yes all other systems are reviewed and are negative [facility] Past Medical History Medical History Ascending aorta dilatation Chronic bilateral thoracic back pain Foot pain, bilateral Vitamin D deficiency Hyperlipidemia Plantar fasciitis Moderate persistent asthma Stage 3a chronic kidney disease Proteinuria Other cervical disc degeneration at C4-C5 level Asthma Pre-diabetes HTN (hypertension) Surgical History Fissure in ano H/O rectal sphincterotomy History of cholecystectomy Hx of tonsillectomy H/O: hysterectomy Social History Social History Alcohol intake: never Patient Tobacco Use Status: Never used Tobacco Advance Directives: No Advance Directives Information Provided: No Do you have a plan to hurt others: No Plan Physical Exam 2 Vital Signs: Vital Signs: Last Vital Signs Temp 98.2 F 10/21/24 22:25 Pulse 76 10/21/24 22:25 Resp 18 10/21/24 22:25 BP 151/79 H 10/21/24 22:25 Pulse Ox 95 10/21/24 22:25 O2 Del Method Room Air 04/21/25 22:25 BMI result Body Mass Index 43.3 Appearance: Alert. Oriented X3. No acute distress. Eyes: Pupils equal, round and reactive to light. ENT: Pharynx normal. Neck: Normal inspection. Neck supple. No lymph nodes noted. No crepitus CVS: Normal heart rate and rhythm. Pulses normal. Normal S1 and S2 Respiratory: No respiratory distress. Breath sounds normal. No Wheezing. No rales Abdomen: Soft and nontender. No rigidity. No distention. good BS x4 Skin: Skin warm and dry. Normal skin color. Normal skin turgor. Extremities: No lower extremity edema. Neurovascular intact to all extremities. No Lacerations. No Rash Neuro: Oriented X 3. No motor deficit. No sensory deficit. Moving all extermities. No slurred speech Medical Decision Making Medical Decision Making [facility] Narrative: Patient's O2 sats 95% on room air my interpretation patient's chest x-ray is grossly negative for any acute evidence of pneumonia no pneumothorax. My interpretation of her EKG showed a sinus rhythm heart rate 75 [place] QRS QTC normal no acute ST segment elevation. Patient's COVID flu RSV were negative. Troponin is negative. In the setting of atypical history negative troponin normal EKG heart score is less than 3. Patient given steroid white count is normal patient is electrolytes normal history not consistent with PE. Will discharge patient home. Follow-up outpatient. Steroids prescribed. Will give a [place]. Currently in stable condition. Differential Diagnosis Differential Diagnoses: The differential diagnosis associated with the presentation includes Bronchitis, asthma, ACS, PE, pneumothorax Admission/Observation Consideration of admission/observation: Escalation of care including admission/observation considered Lab Data [facility] Lab Attestation statement: I reviewed the patient's lab results. 10/21/24 20:39 10/21/24 20:39 Labs: Lab Results 10/21/24 Range/Units 20:39 WBC 9.6 (4.8-10.8) X10*3/uL RBC 4.06 L (4.20-5.50) X10*6/uL Hgb 12.5 (12.0-16.0) g/dl Hct 37.2 (37.0-47.0) % MCV 91.6 (80.0-98.0) fL MCH 30.8 (27.0-33.0) pg MCHC 33.6 (31.0-35.0) g/dl RDW 12.1 (11.0-16.0) % Plt Count 253 (160-400) X10*3/uL MPV 10.3 (9.4-12.3) fL Immature Gran % (Auto) 0.2 (0.0-0.4) % Neut % (Auto) 53.1 (45-73) % Lymph % (Auto) 37.0 (20-40) % Freestone % (Auto) 7.2 (2-11) % Eos % (Auto) 1.8 (0-4) % Baso % (Auto) 0.7 (0-2) % Lymph # (Auto) 3.6 (1.2-4.9) X10*3/uL [place] # (Auto) 0.7 (0.1-1.2) X10*3/uL Eos # (Auto) 0.2 (0.0-0.4) X10*3/uL Baso # (Auto) 0.1 (0.0-0.2) X10*3/uL Abs Immat Gran (auto) 0.02 (0.00-0.03) X10*3/uL Absolute Neuts (auto) 5.1 (2.0-8.3) x10*3/uL Absolute Nucleated RBC 0.000 (0.0-0.012) X10*3/uL Nucleated RBC % (auto) 0.0 (0.0-0.2) /100WBC PT 11.3 (10.9-12.4) SEC INR 1.0 (0.9-1.1) Sodium 143 (135-145) mmol/L Potassium 4.5 (3.3-5.1) mmol/L Chloride 107 (96-108) mmol/L Carbon Dioxide 26 (22-29) mmol/L Anion Gap 15 (12-20) BUN 11 (9-16) mg/dL Creatinine 1.39 (0.5-1.4) mg/dL Estim Creat Clear Calc 62.1 Estimated GFR 40 Random Glucose 102 (60-115) mg/dL Calcium 9.2 (8.4-10.2) mg/dL Total Bilirubin 0.4 (0.0-1.0) mg/dL AST 32 H (5-31) U/L ALT 24 (0-31) U/L Alkaline Phosphatase 57 (39-117) U/L Troponin I High Sens < 2.7 (<3.5-17.0) ng/L Total Protein 7.4 (6.5-8.0) g/dL Albumin 3.9 (3.5-5.0) g/dL Influenza Type A (PCR) NEGATIVE (Negative) Influenza Type B (PCR) NEGATIVE (Negative) RSV RNA Qual (PCR) NEGATIVE (Negative) SARS-CoV-2 RNA (RT-PCR) NEGATIVE (Negative) Independent Interpretation I performed an independent interpretation of an: EKG (Sinus heart rate 70 [place] QRS QTC normal no acute ST segment elevation noted) and Plain X-Ray (Chest x-ray negative for pneumonia no pneumothorax) Radiology Impression Discussion of test interpretation with radiology: I have reviewed the radiologist's reading. Chronic Conditions Patient?s care impacted by: Hypertension Social Determinants Patient?s care significantly limited by Social Determinants of Health including: Problems related to primary support group Discharge Plan Discharge Clinical Impression: Atypical chest pain Patient Disposition: Home, Self-Care Instructions: Chest Pain (ED) Prescriptions: New azithromycin 250 mg tablet See Rx Instructions .ROUTE .COMPLEX Qty: 6 0RF Rx Instructions: take 500 mg today (day 1), then 250 mg for 4 days (days 2-5) prednisone 20 mg tablet 40 mg PO DAILY Qty: 10 0RF No Action benzonatate 100 mg capsule 100 mg PO BID PRN (Reason: cough) Qty: 14 0RF Cepacol Sore Throat (lester-men) 15-2.6 mg lozenge 1 prieto mucous membrane Q2-4H PRN (Reason: sore throat) Qty: 16 0RF prednisone 20 mg tablet 40 mg PO DAILY Qty: 10 0RF cefuroxime axetil 500 mg tablet 500 mg PO BID 7 Days Qty: 14 0RF albuterol sulfate 2.5 mg /3 mL (0.083 %) solution for nebulization 2.5 mg inhalation Q4-6H PRN (Reason: shortness of breath or wheezing) Qty: 90 0RF amlodipine 5 mg tablet 5 mg PO DAILY omeprazole 20 mg capsule,delayed release(DR/EC) 20 mg PO DAILY baclofen 10 mg tablet 10 mg PO TID metformin 500 mg tablet 500 mg PO DAILY amitriptyline 25 mg tablet 25 mg PO BEDTIME losartan 100 mg tablet 100 mg PO DAILY rosuvastatin 20 mg tablet 20 mg PO DAILY gabapentin 100 mg capsule 100 mg PO TID cholecalciferol (vitamin D3) 125 mcg (5,000 unit) capsule 125 mcg PO DAILY albuterol sulfate [ProAir HFA] 90 mcg/actuation HFA aerosol inhaler 2 puff inhalation Q4-6H PRN ketotifen fumarate 0.025 % (0.035 %) drops 1 drp ophthalmic (eye) BID naloxone [Narcan] 4 mg/actuation spray,non-aerosol 4 mg intranasal Q2M PRN (Reason: opioid overdose) Qty: 2 0RF Rx Instructions: spray 1 dose into ONE nostril; alternate nostrils w each dose until help arrives oxycodone 5 mg tablet 5 mg PO Q8H PRN (Reason: pain (scale score 7-10)) 7 Days Qty: 21 0RF Rx Instructions: Partial Fill upon patient request. Referrals: Susu Gavin MD [Primary Care Provider] - 10/23/24 Print Language: Japanese
[2024-10-21] MEDS: Albuterol/Iprat 2.5/0.5MG 3 ML AMPUL.NEB INHALE (23:06)
[2024-10-21 23:09] VITALS: PULSE 77; RESP 18; O2SAT 98
[2024-10-21] MEDS: predniSONE 20 MG TABLET 40 MG PO (23:10)
[2024-10-21 23:16] VITALS: BP 169/76; PULSE 82; RESP 20; TEMP 36.7; O2SAT 100
[2024-10-21 23:26] VITALS: BP 169/76; PULSE 82; RESP 20; TEMP 36.7; O2SAT 100
== END 2024-10-21 23:27 | disposition home or self-care (01) ==
PROVIDERS: Registered Nurse Emergency; Emergency Provider Emergency Medicine Emergency Medical Services; PCP Family Medicine
DX: R07.89 Other chest pain (principal); R05.9 Cough, unspecified; Z79.899 Other long term (current) drug therapy; Z03.818 Encounter for observation for suspected exposure to other biological agents ruled out
CPT/HCPCS: 0241U; 71046; 80053; 84484; 85025; 85610; 93005; 99284; 99285

== ENCOUNTER → 2024-10-21 20:20 | Outpatient (BNV) | payer MEDICAID, SELFPAY | PROVIDERS: Emergency Provider Emergency Medicine Emergency Medical Services; PCP Family Medicine; Visit Provider Internal Medicine | DX: R07.9 Chest pain, unspecified (principal) | CPT/HCPCS: 93010 ==

== ENCOUNTER → 2024-10-21 20:29 | Outpatient (BNV) | payer MEDICAID, SELFPAY | PROVIDERS: PCP Family Medicine; Visit Provider Student in an Organized Health Care Education/Training Program | DX: R07.9 Chest pain, unspecified (principal) | CPT/HCPCS: 71046 ==

== ENCOUNTER 2025-05-16 11:11 | Outpatient (REF) | payer MEDICAID, SELFPAY ==
[2025-05-16 13:18] LABS: MANUAL DIFF FLAG NO
[2025-05-16 13:26] LABS: Hematocrit 41.6 % (37.0-47.0); Hemoglobin 13.8 g/dl (12.0-16.0); Imm Gran Abs Auto 0.03 X10*3/uL (0.00-0.03); Imm Gran Pct Auto 0.4 % (0.0-0.4); Lymphocytes Absolute Auto 3.0 X10*3/uL (1.2-4.9); Mean Corpuscular HGB Conc 33.2 g/dl (31.0-35.0); Mean Corpuscular Hemoglobin 30.6 pg (27.0-33.0); Mean Corpuscular Volume 92.2 fL (80.0-98.0); NRBC Abs Auto 0.000 X10*3/uL (0.0-0.012); NRBC Pct Auto 0.0 /100WBC (0.0-0.2); Platelet Count 286 X10*3/uL (160-400); Red Blood Count 4.51 X10*6/uL (4.20-5.50); White Blood Count 7.1 X10*3/uL (4.8-10.8)
[2025-05-16 14:32] LABS: Folate 6.4 ng/mL (> or = 4.0); Vitamin B12 334 pg/mL (200-900)
[2025-05-22 00:09] LABS: VITAMIN D (1,25 OH) D3 52 pg/mL; Vit D (1,25-Dihydroxy) Total 52 pg/mL (18-72); Vitamin D (1,25 OH) D2 <8 pg/mL
== END 2025-05-16 11:12 | disposition home or self-care (01) ==
LOC: HO.HHCL 11:11
PROVIDERS: PCP Family Medicine; Visit Provider Family Medicine
DX: R20.0 Anesthesia of skin (principal); R20.2 Paresthesia of skin; E55.9 Vitamin D deficiency, unspecified
CPT/HCPCS: 36415; 82607; 82652; 82746; 85025

== ENCOUNTER 2025-05-30 14:10 | Emergency (ER) | payer SELFPAY ==
[2025-05-30 14:20] VITALS: BP 129/71; PULSE 96; RESP 16; TEMP 37; O2SAT 97; BMI 39.3
--- NOTE | 2025-05-30 14:21 | ED_ITS ---
HPI - General Adult General Chief complaint: Upper Respiratory Symptoms Stated complaint: feel of a ball in throat Time Seen by Provider: 05/30/25 15:35 Source: patient Mode of arrival: ambulatory Limitations: no limitations History of Present Illness ED Provider: Mariangel Patel PA-C HPI narrative: Patient is a 50 year old assigned female at with a history of CKD presenting to the emergency department today with a sore throat. Patient states that over the last 3 days she has had a sore throat and felt generally unwell. Patient denies any other complaints at this time. Related Data Home Medications ?Medication ?Instructions ?Recorded ?Confirmed amitriptyline 25 mg tablet 25 mg PO BEDTIME 02/16/23 0 02/28/23 amlodipine 5 mg tablet 5 mg PO DAILY 02/16/2302/28 baclofen 10 mg tablet 10 mg PO TID 02/16/23 losartan 100 mg tablet 100 mg PO DAILY 02/16/23 metformin 500 mg tablet 500 mg PO DAILY 02/16/23 omeprazole 20 mg capsule,delayed 20 mg PO DAILY 02/28/23 release rosuvastatin 20 mg tablet 20 mg PO DAILY 02/16/2302/01 albuterol sulfate 90 mcg/actuation 2 puff inhalation Q 4-6H PRN 11/28/23 aerosol inhaler (ProAir HFA) cholecalciferol (vitamin D3) 125 125 mcg PO DAILY 11/01 02/23 mcg (5,000 unit) capsule gabapentin 100 mg capsule 100 mg PO TID 11/28/23 ketotifen fumarate 0.025 % (0.035 1 drp ophthalmic (ey e) BID 11/28/23 %) eye drops Previous Rx's ?Medication ?Instructions ?Recorded naloxone 4 mg/actuation nasal 4 mg intranasal Q2M PRN opioid 02/12/24 spray (Narcan) overdose #2 ea oxycodone 5 mg tablet 5 mg PO Q8H PRN pain (scale score 05/16/24 7-10) 7 days #21 tabs benzocaine 15 mg-menthol 2.6 mg 1 prieto mucous membrane Q2-4H PRN 08/26/24 lozenges (Cepacol Sore Throat sore throat #16 ea (benzocaine-menthol)) benzonatate 100 mg capsule 100 mg PO BID PRN cough #14 caps 08/26/24 albuterol sulfate 2.5 mg/3 mL 2.5 mg (3 mL) inhalation Q4-6H PRN 10/06/24 (0.083 %) solution for nebulization shortness of breat h or wheezing #90 mL cefuroxime axetil 500 mg tablet 500 mg PO BID 7 days # 14 tabs 10/06/24 prednisone 20 mg tablet 40 mg (2 x 20 mg) PO DAILY # 10 tabs 10/06/24 azithromycin 250 mg tablet See Rx Instructions PO .COM PLEX 10/21/24 upper resp infection #6 tabs benzonatate 100 mg capsule 100 mg PO TID PRN cough 5 d ays #20 10/21/24 caps prednisone 20 mg tablet 40 mg (2 x 20 mg) PO DAILY # 10 tabs 10/21/24 Allergies Allergy/AdvReac Type Severity Reaction Status Date / Time No Known Allergies Allergy Verified 05/30/25 14:24 Review of Systems Constitutional: Constitutional: Reports as per HPI Eyes: Eyes: Reports as per HPI ENT: Reports as per HPI Cardiovascular: Cardiovascular: Reports as per HPI Respiratory: Respiratory: Reports as per HPI Gastrointestinal: Gastrointestinal: Reports as per HPI Genitourinary: Genitourinary: Reports as per HPI Musculoskeletal: Musculoskeletal: Reports as per HPI Integumentary/Breasts: Skin/Breast: Reports as per HPI Neurologic: Reports as per HPI Psychiatric: Psychiatric: Reports as per HPI Endocrine: Endocrine: Reports as per HPI Hematologic/Lymphatic: Hematologic/Lymphatic: Reports as per HPI Allergic/Immunologic: Allergic/Immunologic: Reports as per HPI [facility] Past Medical History Attestation statement: The following information was validated with the patient. Source: old records reviewed and nursing notes reviewed Medical History Ascending aorta dilatation Chronic bilateral thoracic back pain Foot pain, bilateral Vitamin D deficiency Hyperlipidemia Plantar fasciitis Moderate persistent asthma Stage 3a chronic kidney disease Proteinuria Other cervical disc degeneration at C4-C5 level Asthma Pre-diabetes HTN (hypertension) Surgical History Fissure in ano H/O rectal sphincterotomy History of cholecystectomy Hx of tonsillectomy H/O: hysterectomy Social History Social History Alcohol intake: never Patient Tobacco Use Status: Never used Tobacco Advance Directives: No Advance Directives Information Provided: No Physical Exam ED Vital Signs: Vital Signs - 24 hr 05/30/25 14:20 05/30/25 15:48 Temperature 98.6 F 98.6 F Pulse Rate 96 96 Respiratory Rate 16 16 Blood Pressure 129/71 129/71 Pulse Oximetry 97 97 Oxygen Delivery Method Room Air Room Air BMI result Body Mass Index 39.3 Const General: cooperative, no acute distress, alert and awake Nutritional Appearance: well nourished Orientation/consciousness: patient oriented x3 HENMT Head: Yes normal to inspection and Yes atraumatic Ears: hearing grossly normal bilaterally and external ears normal General nose exam: Normal external nose present, no nasal discharge noted and no epistaxis Face and sinus: Yes normal facial exam, No abrasion and No laceration Mouth: Normal oral and palatal mucosa present, no drooling and no muffled voice Eyes General: appearance normal, both eyes and all related structures Periorbital: periorbital findings normal Eyelids: Yes eyelids normal Conjunctivae: conjunctivae normal Pupils: Equal, round and reactive pupils present EOM: EOMs intact bilaterally Neck Neck: Yes normal visual inspection and Yes full ROM Resp Effort & Inspection: normal respiratory effort and able to speak in complete sentences Neuro General: patient oriented x3, moves all extremities and CN's II-XI intact bilaterally Cranial nerves: Yes Equal, round and reactive pupils present Cognition (Neuro): normal cognition Extrem General: Yes normal to inspection, Yes full ROM and Yes capillary refill normal Psych Appearance: grossly normal Mental Status: mental status grossly normal Affect: normal affect Attitude: cooperative Thought process: Normal thought process present Thought content: Normal thought content present Insight: Good insight present (Psych) Course Course Course Narrative: Rapid medical examination performed in triage by Mariangel Patel PA-C: Patient is a 50 year old assigned female at presenting to the emergency department with a sore throat. Detailed physical exam and review of systems are deferred to the bolt sawyer. Swabs ordered. Patient placed back in the waiting room pending room availability and results. Medical Decision Making Medical Decision Making MDM Narrative: Patient is a 50 year old assigned female at with a history of CKD presenting to the emergency department today with a sore throat. Patient's physical exam was as noted in the physical exam portion of this note. Patient's COVID-19, influenza, RSV, and strep testing was negative. Patient's clinical presentation is most consistent with a viral illness. I explained my physical exam findings as well as all test results to the patient. I answered all questions asked by the patient. I stressed the importance of the patient taking her medication as directed (either prescribed or as the over the counter packaging recommends). I stressed the importance of the patient following up with her primary care provider. I stressed the importance of the patient returning to the emergency department immediately if her symptoms were to worsen or if she were to develop any dizziness, shortness of breath, difficulty breathing, chest pain, blurry vision, loss of vision, nausea, vomiting, abdominal pain, fever, chills, back pain, or any other complaints. Patient verbalized agreement and understanding with this treatment plan and discharge. Differential Diagnosis Differential Diagnoses: The differential diagnosis associated with the presentation includes Sore throat Viral illnss COVID-19 Influenza RSV Strep pharyngitis Admission/Observation Consideration of admission/observation: Escalation of care including admission/observation considered Patient would have been admitted to the hospital had her work up had any findings where hospital admission was appropriate and her clinical presentation warranted hospital admission. Lab Data [facility] Lab Attestation statement: I reviewed the patient's lab results. My interpretation of these results are in the [facility] Rationale portion of this no te. Labs: Lab Results 05/30/25 Range/Units 14:49 Influenza Type A (PCR) NEGATIVE (Negative) Influenza Type B (PCR) NEGATIVE (Negative) RSV RNA Qual (PCR) NEGATIVE (Negative) SARS-CoV-2 RNA (RT-PCR) NEGATIVE (Negative) S. pyogenes GrpA NERI Negative (Negative) Tests considered The following testing was considered but not selected: I considered obtaining a chest x-ray however, the patient's current clinical presentation did not warrant this. Discharge Plan Discharge Clinical Impression: Viral illness, Pharyngitis Patient Disposition: Home, Self-Care Instructions: Pharyngitis (ED), Viral Syndrome (ED) Additional Instructions: Your COVID-19, Influenza, RSV, and strep testing was negative. You have a viral illness that will resolve with time. IF you are prescribed home medications and/or you are taking over the counter medications at home - it is very important you continue to do so as prescribed / directed unless told otherwise by a healthcare provider. Follow up with your primary care provider. Do your best to stay well hydrated and rest. Return to the emergency department immediately if your symptoms worsen or if you develop any numbness, tingling, dizziness, shortness of breath, difficulty breathing, chest pain, blurry vision, loss of vision, nausea, vomiting, abdominal pain, fever, chills, back pain, or any other complaints. If you do not have a primary care provider - call any of the below numbers to establish and follow up with a primary care provider. [facility] Primary Care ([place]) [phone] [place] [address], [address] [facility] Primary Care ([address] [place]) [phone] [place] [address], [address] [facility], [address] [facility] Primary Care ([address] [place]) [phone] [place] [address], [address] [facility], [address] [facility] Primary Care ([place]) [phone] [place] [address] [address] [facility], [address] [facility] Family Medicine [phone] [address] [facility], [address] Please see the information below about our Patient Portal. If you are not yet enrolled in the [facility] Patient Portal, you will receive an enrollment email invitation following your visit to any [facility] setting. You may also self-enroll in the Patient Portal by visiting our website: [email or web address] The following information is required to access the Patient Portal: - Your [facility] Medical Record Number - Your personal home email address (must match what is in your electronic medical record, Registration staff can assist with this) - Name - Date of Capabilities of the Patient Portal: - Message some providers - View upcoming appointments - Access your health summary, medical history, and visit history - View current conditions and allergies - View procedure and lab results - View your medications, including guidelines, side effects, and precautions - Complete pre-appointment questionnaires requested by your provider - Ready summary reports of your office visits and procedures To access the Patient Portal Mobile Michel, follow these directions: - Search [employer] in the Michel Store or Google Play Store - Download the Michel - Search for [facility] - Enter your login/password Prescriptions: No Action benzonatate 100 mg capsule 100 mg PO BID PRN (Reason: cough) Qty: 14 0RF Cepacol Sore Throat (lester-men) 15-2.6 mg lozenge 1 prieto mucous membrane Q2-4H PRN (Reason: sore throat) Qty: 16 0RF prednisone 20 mg tablet 40 mg PO DAILY Qty: 10 0RF cefuroxime axetil 500 mg tablet 500 mg PO BID 7 Days Qty: 14 0RF albuterol sulfate 2.5 mg /3 mL (0.083 %) solution for nebulization 2.5 mg inhalation Q4-6H PRN (Reason: shortness of breath or wheezing) Qty: 90 0RF azithromycin 250 mg tablet See Rx Instructions .ROUTE .COMPLEX Qty: 6 0RF Rx Instructions: take 500 mg today (day 1), then 250 mg for 4 days (days 2-5) prednisone 20 mg tablet 40 mg PO DAILY Qty: 10 0RF benzonatate 100 mg capsule 100 mg PO TID PRN (Reason: cough) 5 Days Qty: 20 0RF amlodipine 5 mg tablet 5 mg PO DAILY omeprazole 20 mg capsule,delayed release(DR/EC) 20 mg PO DAILY baclofen 10 mg tablet 10 mg PO TID metformin 500 mg tablet 500 mg PO DAILY amitriptyline 25 mg tablet 25 mg PO BEDTIME losartan 100 mg tablet 100 mg PO DAILY rosuvastatin 20 mg tablet 20 mg PO DAILY gabapentin 100 mg capsule 100 mg PO TID cholecalciferol (vitamin D3) 125 mcg (5,000 unit) capsule 125 mcg PO DAILY albuterol sulfate [ProAir HFA] 90 mcg/actuation HFA aerosol inhaler 2 puff inhalation Q4-6H PRN ketotifen fumarate 0.025 % (0.035 %) drops 1 drp ophthalmic (eye) BID naloxone [Narcan] 4 mg/actuation spray,non-aerosol 4 mg intranasal Q2M PRN (Reason: opioid overdose) Qty: 2 0RF Rx Instructions: spray 1 dose into ONE nostril; alternate nostrils w each dose until help arrives oxycodone 5 mg tablet 5 mg PO Q8H PRN (Reason: pain (scale score 7-10)) 7 Days Qty: 21 0RF Rx Instructions: Partial Fill upon patient request. Referrals: Susu Gavin MD [Primary Care Provider, Medical] Stand Alone Forms: Work/School Release Interventions: ED Discharge Assessment Last Done: 05/30/25 15:48 Discharge Date/Time: 05/30/25 15:49 Print Language: Kyrgyz
--- OUTSIDE RECORDS SUMMARY | 2025-05-30 14:53 | XMS_ITS | Clinical Summary ---
Author Organization [employer] Address [address] [facility] [address] [place] [address] Care Team Providers Care Software Configuration Engineer Name Role Phone Susu Gavin MD Primary Care Provider [phone] Allergies No known active allergies Medications Blood Pressure kit Extra large cuff. Use to monitor blood pressure once a day and PRN Active GaviLyte-G 236 g solution FOLLOW INSTRUCTIONS [...] BEDTIME IF NEEDED 100 g 023 Active Acetaminophen Extra Strength 500 MG tablet Take 2 tablets by mouth 2 times daily. 60 tablet 024 Active triamcinolone (Kenalog) 0.1 % creamIndications: [...] as needed 18 g 11 025 Active amitriptyline (Elavil) 25 MG tablet TAKE 1 TABLET BY MOUTH AT BEDTIME FOR BACK PAIN 90 tablet 1 025 Active fluticasone (Flonase) 50 MCG/ACT nasal sprayIndications: Cough in adult patient SPRAY 1 TO 2 SPRAYS INTO BOTH NOSTRILS EVERY DAY. 48 mL Active amLODIPine (Norvasc) 10 MG tabletIndications :Essential hypertension Take 1 tablet (10 mg) by mouth Once per day. 30 tablet 11 025 2025 Active gabapentin (Neurontin) 300 MG capsuleIndication s:Numbness and tingling of both feet Take 1 capsule (300 mg) by mouth if needed at bedtime (numbness and tingling). 30 capsule 2 025 2025 Active ketotifen (Zaditor) 0.025 % ophthalmic solutionIndicatio ns:Allergic conjunctivitis of both eyes Administer 1 drop into both eyes 2 times daily. 10 mL 1 023 2024 Discontinued metFORMIN (Glucophage) 500 MG tablet Take 1 tablet (500 mg) by mouth in the morning. 90 tablet 1 023 2024 Discontinued omeprazole (PriLOSEC) [address] capsule Take 1 capsule (20 mg) by mouth before breakfast and before evening meal. 180 capsule 3 024 2024 Discontinued gabapentin (Neurontin) 100 MG capsule Take 1 capsule (100 mg) by mouth every 8 (eight) hours. 270 capsule 1 024 2024 Discontinued naproxen (Naprosyn) 500 MG tablet TAKE 1 TABLET BY MOUTH TWICE A DAY 60 tablet 024 2024 Discontinued amLODIPine (Norvasc) 10 MG tablet Take 1 tablet (10 mg) by mouth Once per day. 30 tablet 11 03/21/08 Discontinued(R eorder (will not trigger notification to Pharmacy)) rosuvastatin (Crestor) 20 MG tabletIndications :Hyperlipidemia, unspecified hyperlipidemia type Take 1 tablet (20 mg) by mouth Once per day. 90 tablet 1 025 2024 Discontinued cyclobenzaprine (Flexeril) 10 MG tablet Take 1 tablet (10 mg) by mouth 3 times daily for 10 days. 30 tablet 025 2024 Discontinued Active Problems Problem Noted Date Diagnosed Date Upper back pain 01/14/2025 Assessment & Plan (01/14/2025 5:03 PM EDT): Upper back pain located on her right side, with radiation to her neck, will provide muscle relaxant, told to rest, apply ice, will refer to PT Chronic bilateral thoracic back pain 11/10/2023 Assessment [...] 2:04 PM EST): Will undergo colonoscopy in [facility] in [place] tomorrow per her report Plantar fasciitis 06/24/2022 [...] n 05/30/2022 Stage 3a chronic kidney disease (CMS/HCC) 2021 Hypertensive disorder 04/14/2022 Assessment & Plan (05/18/2023 [...] recommended reduction of 20-30% of maintenance calories; electrician helper automotive referral offered. Recommended to decrease soda and [...] Encounters Date Type Department Care Team Description 05/19/2025 Results Follow-Up [facility] [address] [place], [place] [phone] Perry Levine MD CBC auto differential, Vitamin B12/Folate, Serum Panel 05/16/2025 10:40 AM EST Office Visit [facility] [address] [place] [address] [phone] Perry Levine MD Numbness and tingling of both feet (Primary Dx); Vitamin D deficiency; Essential hypertension 05/16/2025 Telephone [facility] [address] [place] [address] [phone] Perry Levine MD 05/16/2025 Travel from Last 3 Months Immunizations Immunization Administration Dates Next Due INFLUENZA INJECTABLE QUADRIV [...] housing situation today? I have pato hudson 01/15/[address] you li ve. Do you have problems with any of the following? None of the above 01/15/2025 Food Insecurity Answer Date Recorded Within the past 12 months, y ou worried that your food would run out before you got money to buy more: Sometimes True 2024 Within the past 12 months,th e food you bought just didn't last and you didn't have enough money to get more: Sometimes True 01/15/2025 Transportation Answer Date Recorded In the past 12 months, has l ack of transportation kept you from medical appts, meetings, work or from getting things needed for daily living? No 01/15/2025 Utilities Answer Date Recorded In the past 12 months, has t he electric, gas, oil or water company threatened to shut off services in your home? No 01/15/2025 Depression Answer Date Recorded Patient Health Questionnaire-2 Score 0 09/18/2024 Internet Access Answer Date Recorded Internet Access Q1 Yes 01/15/2025 Internet Access Q2 Not on file 01/15/2025 Comments Unknown Sex and Gender Information Value Date Recorded Sex Assigned at Female 05/02/2022 10:40 AM EDT Legal Sex Female 10:40 AM EDT Gender Identity Female 05/02/2022 10:40 AM EDT Sexual Orientation Straight 06/10/2022 12 :52 PM EST Last Filed Vital Signs Vital Sign Reading Time Taken Comments Blood Pressure 132/88 05/16/2025 11:15 AM EST Pulse 70 05/16/2025 10:36 AM EST Temperature 36.2 C (97.1 F) 05/16/2025 10:36 AM EST Respiratory Rate 20 05/16/2025 10:36 AM EST Oxygen Saturation 96% 05/16/2025 10:36 AM EST Inhaled Oxygen Concentration - - Weight 110 kg (241 lb 12.8 oz) 05/16/2025 10:36 AM EST Height 165.1 cm (5' 5 ) 05/16/2025 10:36 AM EST Body Mass Index 40.24 05/16/2025 10:36 AM EST Plan of Treatment Health Maintenance Due Date Last Done Comments CT Colonography 1974 FIT DNA/Cologuard 1974 FIT 1974 FOBT 1974 Sigmoidoscopy 1974 Family Planning (PISQ) 1989 Hepatitis B Vaccines (1 of 3 - 19+ 3-dose series) 1993 Pap Smear 1995 Cervical Cancer Screening 2004 HPV/Cotest 2004 Mammogram 2014 RSV Patients and Patients Aged 60 years or older (1 - Risk 50-74 years 1-dose series) 2024 Zoster Vaccines (1 of 2) 2024 COVID-19 Vaccine (2 - 2024-2 6 season) 2025 04/08/2022 Influenza Vaccine (#1) 2025 , 04/08/2022 Disability Screening 09/11/2025 09/11/2024 Alcohol/Substance Use Screening 09/18/2025 09/18/2024 Depression Screening 09/18/2025 09/18/2024, 09/18/2024 SDOH Screening 01/15/2026 01/15/2025 Tobacco Screening 05/16/2026 05/16/2025 Lipid Panel 09/19/2029 09/19/2024, 07/13/2022, 02/28/2022 DTaP/Tdap/Td Vaccines (2 - T d or Tdap) 02/26/2032 02/25/2022 Colonoscopy 05/19/2033 05/19/2023 Colorectal Cancer Screening 05/19/2033 HIV Screening Completed 02/28/2022 Hepatitis C Screening [...] patient's age to complete this topic Meningococcal B Vaccine Aged Out No l onger eligible based on patient's age to complete this topic Meningococcal Vaccine Aged Out No myesha grupo eligible based on patient's age to complete this topic RSV under 20 months Aged Out No longe r eligible based on patient's age to complete this topic Rotavirus Vaccines Aged Out No longer eligible based on patient's age to complete this topic Goals Goal Patient Goal Type Associated Problems Recent Progress Patient-Stated? Author Help patients manage their type 2 diabetes Care Plan Help patients manage their type 2 diabetes No Perry Levine MD Weekly blood pressure task Care Plan Weekly blood pressure task No Perry Levine MD Help patients manage their type 2 diabetes Care Plan Help patients manage their type 2 diabetes No Perry Levine MD Patient has chronic kidney disease Care Plan Patient has chronic kidney disease No Perry Levine MD Weekly blood pressure task Care Plan Weekly blood pressure task No Perry Levine MD Patient has chronic kidney disease Care Plan Patient has chronic kidney disease No Perry Levine MD Weekly blood pressure task Care Plan Weekly blood pressure task No Jeancarlos Zuniga MA Weekly blood pressure task Care Plan Weekly blood pressure task No Jeancarlos Zuniga MA Patient has chronic kidney disease Care Plan Patient has chronic kidney disease No Jeancarlos Zuniga MA Patient has chronic kidney disease Care Plan Patient has chronic kidney disease No Jeancarlos Zuniga MA Weekly blood pressure task Care Plan Weekly blood pressure task No Perry Levine MD Weekly blood pressure task Care Plan Weekly blood pressure task No Perry Levine MD Patient has chronic kidney disease Care Plan Patient has chronic kidney disease No Perry Levine MD Patient has chronic kidney disease Care Plan Patient has chronic kidney disease No Perry Levine MD Procedures Procedure Name Priority Date/Time Associated Diagnosis Comments VITAMIN D 1,25 DIHYDROXY Routine 05/16/2025 11:26 AM EST Vitamin D deficiency VITAMIN B12/FOLATE, SERUM PANEL Routine 05/16/2025 11:26 AM EST Numbness and tingling of both feet CBC WITH AUTO DIFFERENTIAL Routine 05/16/2025 11:26 AM EST Numbness and tingling of both feet HEMOGLOBIN A1C Routine 09/19/2024 8:55 AM EDT Prediabetes LIPID PANEL, STANDARD Routine 09/19/2024 8:55 AM EDT Hyperlipidemia, unspecified hyperlipidemia type Prediabetes HM COLONOSCOPY Routine 05/19/2023 HEPATITIS C ANTIBODY Routine 05/30/2022 3:01 PM EST HIV 1/2 ANTIGEN/ANTIBODY, FOURTH GENERATION W/RFL Routine 02/28/2022 8:46 AM EDT from Last 3 Months or Most Recently Relevant to Health Maintenance Results * Vitamin B12/Folate, Serum Panel (05/16/2025 11:26 AM EST) Vitamin B12 334 200 - 900 pg/mL [facility] Comment:NORMAL 200-900 PG/ML INDETERMINATE 160-199 PG/ML DEFICIENT < 160 PG/ML Folate 6.4 > or = 4.0 ng/mL [facility] Comment:Reference Values:> o r = 4.0 ng/mL< 4.0 ng/mL suggests folate deficiency Methotrexate, aminopterin and folinic acid(leucovorin) are chemotherapeutic agents whose molecularstructures are similar to folate; therefore, the Architectfolate assay cannot be used for patients using these drugs. Blood Venous blood specimen / Unknown 05/16/2025 11:26 AM EST 05/16/2025 1:16 PM EST us Perry Levine MD LAB BLOOD ORDERABLES Final Resul t [facility] [address] [place] [phone] [phone] * (ABNORMAL) CBC auto differential (05/16/2025 11:26 AM EST) White Blood Count 7.1 4.8 - 10.8 X10*3/uL [facility] Red Blood Count 4.51 4.20 - 5.50 X10*6/uL [facility] Hemoglobin 13.8 12.0 - 16.0 g/dl [facility] Hematocrit 41.6 37.0 - 47.0 % [facility] Mean Corpuscular Volume 92.2 80.0 - 98.0 fL [facility] Mean Corpuscular Hemoglobin 30.6 27.0 - 33.0 pg [facility] Mean Corpuscular HGB Conc 33.2 31.0 - 35.0 g/dl [facility] Red Cell Distribution Width 12.0 11.0 - 16.0 % [facility] Platelet Count 286 160 - 400 X10*3/uL [facility] Mean Platelet Volume 11.0 9.4 - 12.3 fL [facility] Neutrophils Percent Auto 48.5 45 - 73 % [facility] Imm Gran Pct Auto 0.4 0.0 - 0.4 % [facility] Lymphocytes Percent Auto 41.8(H) 20 - 40 % [facility] Monocytes Percent Auto 5.8 2 - 11 % [facility] Eosinophils Percent Auto 2.6 0 - 4 % [facility] Basophils Percent Auto 0.9 0 - 2 % [facility] NRBC Pct Auto 0.0 0.0 - 0.2 /100WBC [facility] Neutrophils Absolute Auto 3.4 2.0 - 8.3 x10*3/uL [facility] Imm Gran Abs Auto 0.03 0.00 - 0.03 X10*3/uL [facility] Lymphocytes Absolute Auto 3.0 1.2 - 4.9 X10*3/uL [facility] Monocytes Absolute Auto 0.4 0.1 - 1.2 X10*3/uL [facility] Eosinophils Absolute Auto 0.2 0.0 - 0.4 X10*3/uL [facility] Basophils Absolute Auto 0.1 0.0 - 0.2 X10*3/uL [facility] NRBC Abs Auto 0.000 0.0 - 0.012 X10*3/uL [facility] Blood Venous blood specimen / Unknown 05/16/2025 11:26 AM EST 05/16/2025 1:16 PM EST Perry Levine MD LAB BLOOD ORDERABLES Final Resul t Performing Organization Address [facility] Co de Phone Number [facility] [address] [place] [phone] * Vitamin D 1,25 dihydroxy (05/16/2025 11:26 AM EST) Vit D (1,25-Dihydroxy) Total 52 18 - 72 pg/mL [facility] VITAMIN D (1,25 OH) D3 52 pg/mL [facility] Vitamin D (1,25 OH) D2 <8 pg/mL [facility] Comment:Vitamin D3, 1,25(OH) 2 indicates both endogenousproduction and supplementation. Vitamin D2, 1,25(OH)2is an indicator of exogenous sources, such as diet orsupplementation. Interpretation and therapy are basedon measurement of Vitamin D,1,25(OH)2, Total.This test was developed and its analyticalperformance characteristics have been determinedby [employer] [facility], [place], [place].It has not been cleared or approved by the FDA. Thisassay has been validated pursuant to the CLIAregulations and is used for clinical purposes.THIS TEST WAS PERFORMED AT:[employer] [id number] [place] [id number] DUQUE MD,PHD Blood Venous blood specimen / Unknown 05/16/2025 11:26 AM EST 05/16/2025 1:16 PM EST Perry Levine MD LAB BLOOD ORDERABLES Final Resul t Performing Organization Address City/[facility]/ZIP Co de Phone Number [facility] [address] [place] [phone] * Hemoglobin A1c (09/19/2024 8:55 AM EDT) Hemoglobin A1c 5.7 <6.0 % [facility] Comment:Hemoglobin A1C Refer ence Range Adults: 4.8 - 6.0 % Non diabetic: < 6.0 % Goal: < 7.0 %Additional Action Suggested: > 8.0 %Note: Hemoglobin A1c results are invalid for patients with abnormal amounts of HbF. Blood transfusions may impact the HbA1c concentration in the patient sample. Estimated Average Glucose 117 mg/dL [facility] Comment:eAG = Estimated ave rage glucose which is %A1C expressed asaverage glucose, using the formula of the [id number] Glucose study (ADAG), Diabetes Care, Vol.31,#8,Jan. 2007 Blood Venous blood specimen / Unknown 09/19/2024 8:55 AM EDT 09/19/2024 2:13 PM EDT us Tila Del Rosario MD LAB BLOOD ORDERABLES Final Resul t [facility] [address] [place] [phone] * (ABNORMAL) Lipid Panel, Standard (09/19/2024 8:55 AM EDT) Triglycerides 144 <150 mg/dL [facility] Comment:Desirable Triglyceri de: less than 150 mg/dLBorderline High Triglyceride 150-199 mg/dLHigh Triglyceride: 200-499 mg/dLVery High Triglyceride: greater than or equal to 5OO mg/dL Cholesterol 209(H) <200 mg/dL [facility] Comment:Desirable Cholestero l: less than 200 mg/dLBorderline High Cholesterol: 200-239 mg/dLHigh Cholesterol: greater than 239 mg/dL LDL Cholesterol Calculated 142(H) <100 mg/dL [facility] Comment:Desirable LDL: less than 100 mg/dLNear Optimal/Above Optimal LDL: 110- 129 mg/dLBorderline High LDL: 130-159 mg/dLHigh LDL: 160-189 mg/dLVery High LDL: greater than or equal to 190 mg/dL HDL Cholesterol 39(L) >40 mg/dL [facility] Comment:Desirable HDL: great er than 40 mg/dL Note: This HDL assay may give artificially low results in patients with liver disease. Blood Venous blood specimen / Unknown 09/19/2024 8:55 AM EDT 09/19/2024 2:17 PM EDT Tila Del Rosario MD LAB BLOOD ORDERABLES Final Resul t [facility] [address] [place] [phone] * Hm Colonoscopy (05/19/2023) Colonoscopy Normal Normal Narrative Susu Gavin MD - 05/19/2023 Normal path for random bx, done in [facility], report in media Historical Provider HEALTH MAINTENANCE Final Result * Hepatitis C Ab (05/30/2022 3:01 PM EST) Hepatitis C Antibody Nonreactive Nonreactive [facility] Comment:Antibodies to HCV no t detected; does not exclude early acuteHCV infection. 05/30/2022 3:01 PM EST 05/30/2022 3:01 PM EST [facility] External Provider LAB BLO OD ORDERABLES Final Result Performing Organization Address City/[facility]/ZIP Co de Phone Number [facility] [address] [place] [phone] * HIV 1/2 ANTIGEN/ANTIBODY,FOURTH GENERATION W/RFL (02/28/2022 8:46 AM EDT) HIV-1/2 ANTIGEN AND ANTIBODIES, 4TH GENERATION W/ REFLEX NON-REACT MARA NON-REACT MARA [facility] Comment: HIV-1 antigen and HIV-1/HIV-2 antibodies were not detected. There is no laboratory evidence of HIV infection. PLEASE NOTE: This information has been disclosed to you from records whose confidentiality may be protected by state law. If your state requires such protection, then the state law prohibits you from making any further disclosure of the information without the specific written consent of the person to whom it pertains, or as otherwise permitted by law. A general authorization for the release of medical or other information is NOT sufficient for this purpose. For additional information please refer to http://education.[employer].Track/faq/JXE549 (This link is being provided for informational/ educational purposes only.) The performance of this assay has not been clinically validated in patients less than 2 years old. 02/28/2022 8:46 AM EDT us Susu Gavin MD LAB BLOOD ORDERABLES Final Re sult [facility] [address] from Last 3 Months or Most Recently Relevant to Health Maintenance Additional Health Concerns Active Problems Noted Date Diagnosed Date Help patients manage their type 2 diabetes 05/16 Weekly blood pressure task 05/16/2025 Help patients manage their type 2 diabetes 05/16 Patient has chronic kidney disease 05/16/2025 Weekly blood pressure task 05/16/2025 Patient has chronic kidney disease 05/16/2025 Weekly blood pressure task 05/16/2025 Weekly blood pressure task 05/16/2025 Patient has chronic kidney disease 05/16/2025 Patient has chronic kidney disease 05/16/2025 Weekly blood pressure task 05/19/2025 Weekly blood pressure task 05/19/2025 Patient has chronic kidney disease 05/19/2025 Patient has chronic kidney disease 05/19/2025 Insurance [address] [place] [address] HS PARTIAL Care Teams Software Configuration Engineer Relationship Specialty Start Date End Date Susu Gavin MD [address] [place] [phone] PCP - General Family Medicine 02/25/22
--- OUTSIDE RECORDS SUMMARY | 2025-05-30 14:54 | XMS_ITS | Patient Health Record ---
Author Organization [facility] Address [address] [place] [address] Care Team Providers Care Animal Services Officer Name Role Phone Baylee - DO NOT USEDiana ry Care Provider Unavailable Savanna Riggs Unavailable Reason For Referral No Information Plan Of Treatment No Information
--- OUTSIDE RECORDS SUMMARY | 2025-05-30 14:54 | XMS_ITS | Clinical Summary ---
Author Organization [facility] Address [address] [place] [phone] Care Team Providers Care Kiln Cleaner Name Role Phone Susu Gavin MD Primary Care Provider [phone] Allergies No known active allergies Medications ProAir [...] point will start on losartan 50mg. Immunizations Immunization Administration Dates Next Due Influenza, MDCK, Quadrivalent, [...] Ophthalmology Exam 07/12/2023 07/12/2022 Influenza Vaccine (#1) 2025 05/18/2023, 2021 Pneumococcal Vaccine: 50+ Years Completed Pneumococcal Vaccine: Peds ( 0 to 5 Years) and At-Risk Patients (6 to 49 Years) Discontinued 05/18/2023 Insurance Medicaid [place] [facility] [place] [address] Medicaid [place] Care Teams Kiln Cleaner Relationship Specialty Start Date End Date Susu Gavin MD PCP - General Family Medicine 03/14/22
--- OUTSIDE RECORDS SUMMARY | 2025-05-30 14:54 | XMS_ITS | Encounter Summary ---
Author Organization [employer] Address [address] [place] [address] Care Team Providers Care Customer Sales Consultant Name Role Phone Susu Gavin MD Primary Care Provider [phone] Reason for Visit * Reason Onset Date Comments Results 10/10/2023 Encounter Details Date Type Department Care Team ([facility] Contact Info) Description 10/10/2023 Telephone [facility] [address] [place] [address] Susu Gavin MD [address] [place] [address] Results Social History Tobacco Use Types Packs/Day [...] documented as of this encounter Care Teams Customer Sales Consultant Relationship Specialty Start Date End Date Susu Gavin MD [address] [place] [address] PCP - General Family Medicine 02/25/22 documented as of this encounter
[2025-05-30 15:21] LABS: IDNOW Serial# 55D5AD1C
[2025-05-30 15:22] LABS: Strep A Nucleic Acid Negative (Negative)
[2025-05-30 15:34] LABS: Resp Syncy Virus RNA Qual PCR NEGATIVE (Negative); SARS COV2 PCR INHOUSE NEGATIVE (Negative)
[2025-05-30 15:48] VITALS: BP 129/71; PULSE 96; RESP 16; TEMP 37; O2SAT 97
== END 2025-05-30 15:49 | disposition home or self-care (01) ==
PROVIDERS: Physician Assistant Medical; Emergency Provider Emergency Medicine; PCP Family Medicine
DX: B34.9 Viral infection, unspecified (principal); J02.9 Acute pharyngitis, unspecified; Z03.818 Encounter for observation for suspected exposure to other biological agents ruled out; Z79.899 Other long term (current) drug therapy
CPT/HCPCS: 87637; 87651; 99282; 99283

== ENCOUNTER 2025-06-17 11:39 | Outpatient (REF) | payer MEDICAID, SELFPAY ==
--- NOTE | ~2025-06-17 | XR_ITS ---
EXAMINATION: XR FOOT NIKOLAY 3V CLINICAL INFORMATION: Chronic bl foot pain , hx of spurs COMPARISON: None available. TECHNIQUE: AP, lateral, and oblique views of the each foot were obtained. FINDINGS: RIGHT FOOT: No fracture, dislocation, or suspicious bone lesion. There is normal alignment. There are preserved joint spaces. There is a normal plantar arch. There are moderate-sized plantar and dorsal calcaneal spurs. There is no soft tissue abnormality. LEFT FOOT: No fracture, dislocation, or suspicious bone lesion. There is normal alignment. There are preserved joint spaces. There is a normal plantar arch. There are mild to moderate-sized plantar and dorsal calcaneal spurs. There is no soft tissue abnormality. XR/XR Foot Nikolay 3V IMPRESSION: 1. No acute bony or soft tissue finding of either foot. 2. Plantar and dorsal calcaneal spurs bilaterally, right greater than left. Electronically signed by: Bryant Lantigua MD 06/17/2025 12:45 PM [facility]
--- OUTSIDE RECORDS SUMMARY | 2025-06-17 11:15 | XMS_ITS | Encounter Summary ---
Author Organization [email or web address] Address [address] [place] [address] [address] [place] [address] Care Team Providers Care Fashion Director Party Plan Sales Name Role Phone Susu Gavin MD Primary Care Provider [phone] Reason for Referral * Consultation (Routine) - Pending Review Specialty Diagnoses / Procedures Referred By Contac t Referred To Contact Podiatry Diagnoses Chronic pain of both feet Bindu Mendoza MD [address] [place] [id number] Phone: tel: fax: Referral ID Status Reason Start Date Expiration Date Visits Requested Visits Authorized [id number] Pending Review Specialty Services Required 06/17/2026 1 1 * Neurology (Routine) - Authorized Specialty Diagnoses / Procedures Referred By Contac t Referred To Contact Diagnoses Chronic pain of both feet Procedures Nerve conduction test Bindu Mendoza MD [address] [place] [address] Phone: tel: fax: [address] [phone] Phone: tel: fax: Referral ID Status Reason Start Date Expiration Date V isits Requested Visits Authorized [id number] Authorized 06/17/2025 06/17/2026 1 1 * Neurology (Routine) - Authorized Specialty Diagnoses / Procedures Referred By Contac t Referred To Contact Diagnoses Chronic pain of both feet Procedures EMG Bindu Mendoza MD [address] [place] [address] Phone: tel: fax: [facility] [address] [place] [phone] Phone: tel: fax: Referral ID Status Reason Start Date Expiration Date V isits Requested Visits Authorized [id number] Authorized 06/17/2025 06/17/2026 1 1 Encounter Details Date Type Department Care Team (Late st Contact Info) Description 06/17/2025 11:15 AM EST Office Visit [facility] [address] [place] [address] Bindu Mendoza MD [address] [place] [address] Chronic pain of both feet (Primary Dx); Prediabetes Social History Tobacco Use Types Packs/Day Years [...] Sign Reading Time Taken Comments Blood Pressure 144/66 06/17/2025 10:46 AM EST Pulse 84 06/17/2025 10:46 AM EST Temperature 37.2 C (98.9 F) 06/17/2025 10:46 AM EST Respiratory Rate 20 06/17/2025 10:46 AM EST Oxygen Saturation 98% 06/17/2025 10:46 AM EST Inhaled Oxygen Concentration - - Weight 112 kg (247 lb 3.2 oz) 06/17/2025 10:46 A M EST Height - - Body Mass Index 41.14 05/16/2025 10:36 AM EST documented in this encounter Plan of Treatment Upcoming Encounters Date Type Department Care Team (Late st Contact Info) Description 07/07/2025 11:30 AM EST Clinical Support [facility] [address] [place] [address] 08/07/2025 10:15 AM EST Office Visit [facility] [address] [place] [address] Susu Gavin MD [address] [place] [address] Scheduled Orders Name Type Priority Associated Diagnoses Orde r Schedule EMG Neurology Routine Chronic pain of both feet Expected: 06/17/2025 (Approximate), Expires: 06/17/2026 Nerve conduction test Neurology Routine Chronic pain of both feet Expected: 06/17/2025 (Approximate), Expires: 06/17/2026 Scheduled Referrals Name Type Priority Associated Diagnoses Orde r Schedule Referral to Podiatry Outpatient Referral Routine Chronic pain of both feet Expected: 06/17/2025 (Approximate), Expires: 06/17/2026 documented as of this encounter Goals Goal Patient Goal Type Associated Problems [...] Care Plan Weekly blood pressure task No CaiYris tinoco Weekly blood pressure task Care Plan Weekly blood pressure task No CaiTerranceYris Patient has chronic kidney disease Care Plan Patient has chronic kidney disease No Cai Yris Patient has chronic kidney disease Care Plan Patient has chronic kidney disease No CaiYris Weekly blood pressure task Care Plan Weekly blood pressure task No Shaunna Cobb [place] Weekly blood pressure task Care Plan Weekly blood pressure task No Shaunna Cobb [place] Patient has chronic kidney disease Care Plan Patient has chronic kidney disease No Shaunna Cobb [place] Patient has chronic kidney disease Care Plan Patient has chronic kidney disease No Shaunna Cobb MA documented as of this encounter Procedures Procedure Name Priority Date/Time Associated Diagnosis Comments XR FOOT 3+ VIEWS BILATERAL Routine 06/17/2025 12:21 PM EST Chronic pain of both feet POCT GLYCATED HEMOGLOBIN, TOTAL Routine 06/17/2025 11:39 AM EST Prediabetes POCT GLUCOSE Routine 06/17/2025 11:39 AM EST Prediabetes documented in this encounter Results * XR Foot 3+ Views Bilateral (06/17/2025 12:21 PM EST) Anatomical Region Laterality Modality Lower Extremities, Foot Bilateral Radiogra phic Imaging 06/17/2025 12:2 1 PM EST Narrative 06/17/2025 12:48 PM EST [address] [address] XRay Report Signed Patient: Paula Mendez MR#: [id number] : 1975 Acct:[id number] Age/Sex: 50 / F ADM Date: 06/17/25 Loc: .[facility] Attending Dr: Perry Levine MD Ordering Physician: Bindu Mendoza MD Date of Service: 06/17/25 Procedure(s): XR Foot Concepcion 3V Accession Number(s): [id number] cc: Bindu Mendoza MD; Susu Gavin MD Reason for Exam: Chronic bl foot pain , hx of spurs EXAMINATION: XR FOOT CONCEPCION 3V CLINICAL INFORMATION: Chronic bl foot pain , hx of spurs COMPARISON: None available. TECHNIQUE: AP, lateral, and oblique views of the each foot were obtained. FINDINGS: RIGHT FOOT: No fracture, dislocation, or suspicious bone lesion. There is normal alignment. There are preserved joint spaces. There is a normal plantar arch. There are moderate-sized plantar and dorsal calcaneal spurs. There is no soft tissue abnormality. LEFT FOOT: No fracture, dislocation, or suspicious bone lesion. There is normal alignment. There are preserved joint spaces. There is a normal plantar arch. There are mild to moderate-sized plantar and dorsal calcaneal spurs. There is no soft tissue abnormality. XR/XR Foot Concepcion 3V IMPRESSION: 1. No acute bony or soft tissue finding of either foot. 2. Plantar and dorsal calcaneal spurs bilaterally, right greater than left. Electronically signed by: Bryant Lantigua MD 06/17/2025 12:45 PM EST Dictated By: Bryant Lantigua MD Signed By: <Electronically signed by Bryant Lantigua MD in OV> 06/17/25 1245 DD/ 1221 TD/TT: 06/17/25 1239 [place]: Procedure Note Donotuseinterpreter, Image - 06/17/[address] [address] XRay Report Signed Patient: Paula MendezMR#: [id number] : 1975Acct:[id number] Age/Sex: 50 / FADM Date: 06/17/25 Loc: HO.HHCL Attending Dr: Perry Levine MD Ordering Physician: Bindu Mendoza MD Date of Service: 06/17/25 Procedure(s): XR Foot Concepcion 3V Accession Number(s): [id number] cc: Bindu Mendoza MD; Susu Gavin MD Reason for Exam: Chronic bl foot pain , hx of spurs EXAMINATION: XR FOOT CONCEPCION 3V CLINICAL INFORMATION: Chronic bl foot pain , hx of spurs COMPARISON: None available. TECHNIQUE: AP, lateral, and oblique views of the each foot were obtained. FINDINGS: RIGHT FOOT: No fracture, dislocation, or suspicious bone lesion. There is normal alignment. There are preserved joint spaces. There is a normal plantar arch. There are moderate-sized plantar and dorsal calcaneal spurs. There is no soft tissue abnormality. LEFT FOOT: No fracture, dislocation, or suspicious bone lesion. There is normal alignment. There are preserved joint spaces. There is a normal plantar arch. There are mild to moderate-sized plantar and dorsal calcaneal spurs. There is no soft tissue abnormality. XR/XR Foot Concepcion 3V IMPRESSION: 1. No acute bony or soft tissue finding of either foot. 2. Plantar and dorsal calcaneal spurs bilaterally, right greater than left. Electronically signed by: Bryant Lantigua MD 06/17/2025 12:45 PM EST Dictated By: Bryant Lantigua MD Signed By: <Electronically signed by Bryant Lantigua MD in OV> 06/17/25 1245 DD/ 1221 TD/TT: 06/17/25 1239 [place]: Bindu Montgomery MD IMG XR PROCEDURES Edited Result - Final * POCT Hgb A1c (06/17/2025 11:39 AM EST) Hemoglobin A1C 5.7 4.0 - 5.7 % QC Media Lot # [id number] Lot# Expiration Date , Blood 06/17/2025 11:3 9 AM EST Bindu Montgomery MD POINT OF CARE YOLANDA T ENTER/EDIT ORDERABLES Final Result * POCT Glucose (06/17/2025 11:39 AM EST) Glucose Blood, POC 160 60 - 200 mg/dL QC Media Lot # [id number] Lot# Expiration Date , Blood Capillary blood specimen / Unknown 06/17/2025 11:39 AM EST Bindu Montgomery MD POINT OF CARE YOLANDA T ENTER/EDIT ORDERABLES Final Result documented in this encounter Visit Diagnoses Diagnosis Chronic pain of both feet- Primary Prediabetes Other abnormal glucose documented in this encounter Additional Health Concerns Active Problems Noted Date [...] 05/19/2025 Patient has chronic kidney disease 05/19/2025 Weekly blood pressure task 06/17/2025 Weekly blood pressure task 06/17/2025 Patient has chronic kidney disease 06/17/2025 Patient has chronic kidney disease 06/17/2025 Weekly blood pressure task 06/17/2025 Weekly blood pressure task 06/17/2025 Patient has chronic kidney disease 06/17/2025 Patient has chronic kidney disease 06/17/2025 Assessment Noted Time PHQ-9 Depression Total Score: 0 09/19/19 25 10:28 AM EDT documented as of this encounter Care Teams Fashion Director Party Plan Sales Relationship Specialty Start Date End Date Susu Gavin MD [address] [place] [phone] PCP - General Family Medicine 02/25/22 documented as of this encounter
--- OUTSIDE RECORDS SUMMARY | 2025-06-17 15:30 | XMS_ITS | Encounter Summary ---
Author Organization [email or web address] Address [address] [place] [address] Care Team Providers Care Lead Cargo Mover Name Role Phone Susu Gavin MD Primary Care Provider [phone] Reason for Visit * Reason Onset Date Comments Results 10/10/2023 Encounter Details Date Type Department Care Team ([facility] Contact Info) Description 10/10/2023 Telephone [facility] [address] [place] [address] Susu Gavin MD [address] [place] [address] Results Social History Tobacco Use Types Packs/Day [...] Description 07/07/2025 11:30 AM EST Clinical Support [facility] [address] [place] [address] 08/07/2025 10:15 AM EST Office Visit [facility] [address] [place] [address] Susu Gavin MD [address] [place] [address] documented as of this encounter Visit Diagnoses Not on filedocumented in this encounter Additional Health Concerns Assessment Noted Time PHQ-9 Depression Total Score: 4 07/28/19 23 1:52 PM EST documented as of this encounter Care Teams Lead Cargo Mover Relationship Specialty Start Date End Date Susu Gavin MD [address] [place] [address] PCP - General Family Medicine 02/25/22 documented as of this encounter
--- OUTSIDE RECORDS SUMMARY | 2025-06-17 15:30 | XMS_ITS | Clinical Summary ---
Author Organization [employer] Address [address] [facility] 7[address] [place] [address] Care Team Providers Care Systems Management Consultant Name Role Phone Susu Gavin MD Primary Care Provider [phone] Allergies No known active allergies Medications Blood Pressure kit Extra large cuff. Use to monitor blood pressure once a day and PRN Active GaviLyte-G 236 g solution FOLLOW INSTRUCTIONS FROM GI OFFICE Active budesonide-form oterol (Symbicort) 160-4.5 MCG/ACT inhalerIndicati ons:Mild persistent asthma without complication Inhale 2 puffs every 12 (twelve) hours. Inhale 2 puffs by inhalation route 2 times every day in the morning and evening 1 each 2 023 Active Additional Information Patient not taking.Reported on 06/17/2025 losartan (Cozaar) 100 MG tabletIndicatio ns:Primary hypertension Take 1 tablet (100 mg) by mouth in the morning. 90 tablet 1 023 Active Additional Information Patient not taking.Reported on 06/17/2025 cholecalciferol (Vitamin D-3) 125 MCG (5000 UT) capsule Take 1 capsule (125 mcg) by mouth in the morning. 120 capsule 3 023 Active Diclofenac Sodium 1 % gelIndications: Plantar fasciitis APPLY 1 GRAM TOPICALLY IN THE MORNING, AT NOON, AND BEDTIME IF NEEDED 100 g 023 Active Additional Information Patient not taking.Reported on 06/17/2025 fexofenadine (Fatoumata) 180 MG tabletIndicatio ns:Urticaria TAKE 1 TABLET (180 MG) BY MOUTH IF NEEDED EACH DAY FOR ALLERGIES 90 tablet 024 Active Additional Information Patient not taking.Reported on 06/17/2025 albuterol (ProAir HFA) 108 (90 Base) MCG/ACT inhaler Inhale 2 puffs every 4 (four) hours. Inhale 2 puffs by inhalation route every 4-6 hours as needed 18 g 11 025 Active amitriptyline (Elavil) 25 MG tablet TAKE 1 TABLET BY MOUTH AT BEDTIME FOR BACK PAIN 90 tablet 1 Active Additional Information Patient not taking.Reported on 06/17/2025 fluticasone (Flonase) 50 MCG/ACT nasal sprayIndication s:Cough in adult patient SPRAY 1 TO 2 SPRAYS INTO BOTH NOSTRILS EVERY DAY. 48 mL Active Additional Information Patient not taking.Reported on 06/17/2025 amLODIPine (Norvasc) 10 MG tabletIndicatio ns:Essential hypertension Take 1 tablet (10 mg) by mouth Once per day. 30 tablet 11 025 2025 Active Additional Information Patient not taking.Reported on 06/17/2025 gabapentin (Neurontin) 300 MG capsuleIndicati ons:Numbness and tingling of both feet Take 1 capsule (300 mg) by mouth if needed at bedtime (numbness and tingling). 30 capsule 2 025 2025 Active Additional Information Patient not taking.Reported on 06/17/2025 Acetaminophen Extra Strength 500 MG tablet Take 2 tablets (1,000 mg) by mouth 2 times daily. 60 tablet Active Acetaminophen Extra Strength 500 MG tablet Take 2 tablets by mouth 2 times daily. 60 tablet 024 2024 Discontinued(R eorder (will not trigger notification to Pharmacy)) triamcinolone (Kenalog) 0.1 % creamIndication s:Urticaria Apply topically if needed in the morning and at bedtime (pain and swelling). 30 g 3 024 2024 Discontinued(O ther) Active Problems Problem Noted Date Diagnosed Date [...] 2:04 PM EST): Will undergo colonoscopy in [facility] in [place] tomorrow per her report Plantar fasciitis 06/24/2022 [...] recommended reduction of 20-30% of maintenance calories; cobbler upper referral offered. Recommended to decrease soda and [...] Encounters Date Type Department Care Team Description 06/17/2025 11:15 AM EST Office Visit [facility] MEDICINE [address] [place] [phone] Bindu Mendoza MD Chronic pain of both feet (Primary Dx); Prediabetes 06/17/2025 Results Follow-Up [address] [address] Bindu Mendoza MD XR Foot 3+ Views Bilateral 06/17/2025 Travel 06/17/[address] [address] Susu Gavin MD Transfer 05/30/2025 Orders Only GENERIC EXTERNAL DATA DEPARTMENT Provider, Generic External Data 05/19/2025 Results Follow-Up [facility] MED & PEDS [address] [place] [address] Perry Levine MD CBC auto differential, Vitamin B12/Folate, Serum Panel 05/16/2025 10:40 AM EST Office Visit [facility] [address] [place] [address] Perry Levine MD Numbness and tingling of both feet (Primary Dx); Vitamin D deficiency; Essential hypertension 05/16/2025 Telephone [facility] [address] [place] [phone] Perry Levine MD 05/16/2025 Travel from Last [...] oz) 06/17/2025 10:46 A M EST Height 165.1 cm (5' 5 ) 05/16/2025 10:36 AM EST Body Mass Index 41.14 05/16/2025 10:36 AM EST Plan of Treatment Upcoming Encounters Date Type Department Care Team (Late st Contact Info) Description 07/07/2025 11:30 AM EST Clinical Support [facility] MED & PEDS [address] [place] [address] 08/07/2025 10:15 AM EST Office Visit [facility] MED & PEDS [address] [place] [address] Susu Gavin MD [address] [place] [address] Health Maintenance Due Date Last Done Comments [...] Years Completed 05/18/2023 Diabetes: Hemoglobin A1C Discontinued 025, 09/19/2024 HIB Vaccines Aged Out No longer [...] Patient has chronic kidney disease No Jeancarlos Zuinga MA Weekly blood pressure task Care Plan [...] Care Plan Weekly blood pressure task No Yris Cai Weekly blood pressure task Care Plan Weekly blood pressure task No Trell Yris Patient has chronic kidney disease Care Plan Patient has chronic kidney disease No Yris Cai Patient has chronic kidney disease Care Plan Patient has chronic kidney disease No Yris Cai Weekly blood pressure task Care Plan Weekly blood pressure task No Shaunna Cobb MA Weekly blood pressure task Care Plan Weekly blood pressure task No Shaunna Cobb MA Patient has chronic kidney disease Care Plan Patient has chronic kidney disease No Shaunna Cobb MA Patient has chronic kidney disease Care Plan Patient has chronic kidney disease No Shaunna Cobb MA Procedures Procedure Name Priority Date/Time Associated Diagnosis Comments XR FOOT 3+ VIEWS BILATERAL Routine 06/17/2025 12:21 PM EST Chronic pain of both feet POCT GLYCATED HEMOGLOBIN, TOTAL Routine 06/17/2025 11:39 AM EST Prediabetes POCT GLUCOSE Routine 06/17/2025 11:39 AM EST Prediabetes SARS COV2/INFLUENZA A/B AND RSV RNA QL NAAT Routine 05/30/2025 2:49 PM EST STREP A NUCLEIC ACID Routine 05/30/2025 2:49 PM EST VITAMIN D 1,25 DIHYDROXY Routine 05/16/2025 11:26 AM EST Vitamin D deficiency VITAMIN B12/FOLATE, SERUM PANEL Routine 05/16/2025 11:26 AM EST Numbness and tingling of both feet CBC WITH AUTO DIFFERENTIAL Routine 05/16/2025 11:26 AM EST Numbness and tingling of both feet LIPID PANEL, STANDARD Routine 09/19/2024 8:55 AM EDT Hyperlipidemia, unspecified hyperlipidemia type Prediabetes HM COLONOSCOPY Routine 05/19/2023 HEPATITIS C ANTIBODY Routine 05/30/2022 3:01 PM EST HIV 1/2 ANTIGEN/ANTIBODY, FOURTH GENERATION W/RFL Routine 02/28/2022 8:46 AM EDT from Last 3 Months or Most Recently Relevant to Health Maintenance Results * XR Foot 3+ Views Bilateral (06/17/2025 12:21 PM EST) Anatomical Region Laterality Modality Lower Extremities, Foot Bilateral Radiogra phic Imaging 06/17/2025 12:2 1 PM EST Narrative 06/17/2025 12:48 PM EST [address] [address] XRay Report Signed Patient: Paula Mendez MR#: [id number] : 1975 Acct:[id number] Age/Sex: 50 / F ADM Date: 06/17/25 Loc: [facility] Attending Dr: Perry Levine MD Ordering Physician: Bindu Mendoza MD Date of Service: 06/17/25 Procedure(s): XR Foot Nikolay 3V Accession Number(s): [id number] cc: Bindu Mendoza MD; Susu Gavin MD Reason for Exam: Chronic bl foot pain , hx of spurs EXAMINATION: XR FOOT NIKOLAY 3V CLINICAL INFORMATION: Chronic bl foot pain [...] is no soft tissue abnormality. XR/XR Foot Nikolay 3V IMPRESSION: 1. No acute bony or soft tissue finding of either foot. 2. Plantar and dorsal calcaneal spurs bilaterally, right greater than left. Electronically signed by: Bryant Lantigua MD 06/17/2025 12:45 PM EST RP Dictated By: Bryant Lantigua MD Signed By: <Electronically signed by Bryant Lantigua MD in OV> 06/17/25 1245 DD/ 1221 TD/TT: 06/17/25 1239 Through Operator: Procedure Note Donotuseinterpreter, Image - 06/17/[address] [address] XRay Report Signed Patient: Paula MendezMR#: [id number] : 1975Acct:[id number] Age/Sex: 50 / FADM Date: 06/17/25 Loc: [facility] Attending Dr: Perry Levine MD Ordering Physician: iBndu Mendoza MD Date of Service: 06/17/25 Procedure(s): XR Foot Nikolay 3V Accession Number(s): [id number] cc: Bindu Mendoza MD; Susu Gavin MD Reason for Exam: Chronic bl foot pain , hx of spurs EXAMINATION: XR FOOT NIKOLAY 3V CLINICAL INFORMATION: Chronic bl foot pain [...] is no soft tissue abnormality. XR/XR Foot Nikolay 3V IMPRESSION: 1. No acute bony or soft tissue finding of either foot. 2. Plantar and dorsal calcaneal spurs bilaterally, right greater than left. Electronically signed by: Bryant Lantigua MD 06/17/2025 12:45 PM EST RP Dictated By: Bryant Lantigua MD Signed By: <Electronically signed by Bryant Lantigua MD in OV> 06/17/25 1245 DD/ 1221 TD/TT: 06/17/25 1239 Through Operator: Result [facility] Bindu Montgomery MD IMG XR PROCEDURES Edited Result - Final * POCT Hgb A1c (06/17/2025 11:39 AM EST) Hemoglobin A1C 5.7 4.0 - 5.7 % QC Media Lot # [id number] Lot# Expiration Date [id number] Blood 06/17/2025 11:3 9 AM EST Result [facility] Bindu Montgomery MD POINT OF CARE YOLANDA T ENTER/EDIT ORDERABLES Final Result * POCT Glucose (06/17/2025 11:39 AM EST) Glucose Blood, POC 160 60 - 200 mg/dL QC Media Lot # [id number] Lot# Expiration Date [id number] Blood Capillary blood specimen / Unknown 06/17/2025 11:39 AM EST Result [facility] Bindu Montgomery MD POINT OF CARE YOLANDA T ENTER/EDIT ORDERABLES Final Result * Strep A Nucleic Acid (05/30/2025 2:49 PM EST) IDNOW SERIAL# [id number] [facility] Strep A Nucleic Acid Negative Negative [facility] Comment:All test results mus t be correlated with clinical findings.This test has not been evaluated for monitoring treatment ofinfection.Additional follow-up testing using the culture method isrequired if the result is negative and clinical symptomspersist, or in the event of an acute rheumatic feveroutbreak. 05/30/2025 2:49 PM EST 05/30/2025 2:53 PM EST Generic External Data Provider LAB MICROBIOLOGY - GENERAL ORDERABLES Final Result [facility] [address] [place] [address] [phone] * SARS-CoV-2 RNA, Influenza A/B, and RSV RNA, Ql NAAT (05/30/2025 2:49 PM EST) Influenza A PCR NEGATIVE Negative [facility] Influenza B PCR NEGATIVE Negative [facility] Resp Syncy Virus RNA Qual PCR NEGATIVE Negative [facility] SARS COV2 PCR NEGATIVE Negative [facility] Comment:All test results mus t [...] use by authorized laboratories.Testing performed on the [employer] GeneXpert utilizingreal-time RT-PCR.All SARS CoV2 and positive influenza A/B results arereported to [facility]. 05/30/2025 2:49 PM EST 05/30/2025 2:53 PM EST Generic External Data Provider LAB MICROBIOLOGY - GENERAL ORDERABLES Final Result Performing Organization Address [facility] Co de Phone Number [facility] [address] [place] [phone] * Vitamin B12/Folate, Serum Panel (05/16/2025 11:26 AM EST) Vitamin B12 334 200 - 900 pg/mL [facility] Comment:NORMAL 200-900 PG/ML INDETERMINATE 160-199 PG/ML DEFICIENT < 160 PG/ML Folate 6.4 > or = 4.0 ng/mL [facility] Comment:Reference Values:> o r = 4.0 ng/mL< 4.0 ng/mL suggests folate deficiency Methotrexate, aminopterin and folinic acid(leucovorin) are chemotherapeutic agents whose molecularstructures are similar to folate; therefore, the Architectfolate assay cannot be used for patients using these drugs. Blood Venous blood specimen / Unknown 05/16/2025 11:26 AM EST 05/16/2025 1:16 PM EST us Perry Levine MD LAB BLOOD ORDERABLES Final Resul t [facility] [address] [place] [phone] * (ABNORMAL) CBC auto differential (05/16/2025 11:26 AM EST) White Blood Count 7.1 4.8 - 10.8 X10*3/uL [facility] Red Blood Count 4.51 4.20 - 5.50 X10*6/uL [facility] Hemoglobin 13.8 12.0 - 16.0 g/dl [facility] Hematocrit 41.6 37.0 - 47.0 % [facility] Mean Corpuscular Volume 92.2 80.0 - 98.0 fL [facility] Mean Corpuscular Hemoglobin 30.6 27.0 - 33.0 pg [facility] Mean Corpuscular HGB Conc 33.2 31.0 - 35.0 g/dl [facility] Red Cell Distribution Width 12.0 11.0 - 16.0 % [facility] Platelet Count 286 160 - 400 X10*3/uL [facility] Mean Platelet Volume 11.0 9.4 - 12.3 fL [facility] Neutrophils Percent Auto 48.5 45 - 73 % [facility] Imm Gran Pct Auto 0.4 0.0 - 0.4 % [facility] Lymphocytes Percent Auto 41.8(H) 20 - 40 % [facility] Monocytes Percent Auto 5.8 2 - 11 % [facility] Eosinophils Percent Auto 2.6 0 - 4 % [facility] Basophils Percent Auto 0.9 0 - 2 % [facility] NRBC Pct Auto 0.0 0.0 - 0.2 /100WBC [facility] Neutrophils Absolute Auto 3.4 2.0 - 8.3 x10*3/uL [facility] Imm Gran Abs Auto 0.03 0.00 - 0.03 X10*3/uL [facility] Lymphocytes Absolute Auto 3.0 1.2 - 4.9 X10*3/uL [facility] Monocytes Absolute Auto 0.4 0.1 - 1.2 X10*3/uL [facility] Eosinophils Absolute Auto 0.2 0.0 - 0.4 X10*3/uL [facility] Basophils Absolute Auto 0.1 0.0 - 0.2 X10*3/uL [facility] NRBC Abs Auto 0.000 0.0 - 0.012 X10*3/uL [facility] Blood Venous blood specimen / Unknown 05/16/2025 11:26 AM EST 05/16/2025 1:16 PM EST us Perry Levine MD LAB BLOOD ORDERABLES Final Resul t [facility] [address] [place] [phone] * Vitamin D 1,25 dihydroxy (05/16/2025 11:26 AM EST) Vit D (1,25-Dihydroxy) Total 52 18 - 72 pg/mL [facility] VITAMIN D (1,25 OH) D3 52 pg/mL [facility] Vitamin D (1,25 OH) D2 <8 pg/mL [facility] Comment:Vitamin D3, 1,25(OH) 2 indicates both endogenousproduction and supplementation. Vitamin D2, 1,25(OH)2is an indicator of exogenous sources, such as diet orsupplementation. Interpretation and therapy are basedon measurement of Vitamin D,1,25(OH)2, Total.This test was developed and its analyticalperformance characteristics have been determinedby [employer], [place], [place].It has not been cleared or approved by the FDA. Thisassay has been validated pursuant to the CLIAregulations and is used for clinical purposes.THIS TEST WAS PERFORMED AT:[employer]/[facility] [place] [address]LIWNUYYHENRIETTA DUQUE MD,PHD Blood Venous blood specimen / Unknown 05/16/2025 11:26 AM EST 05/16/2025 1:16 PM EST us Perry Levine MD LAB BLOOD ORDERABLES Final Resul t Performing Organization Address [facility] Co de Phone Number [facility] [address] [place] [phone] * (ABNORMAL) Lipid Panel, Standard (09/19/2024 8:55 AM EDT) Triglycerides 144 <150 mg/dL [facility] Comment:Desirable Triglyceri de: less than 150 mg/dLBorderline High Triglyceride 150-199 mg/dLHigh Triglyceride: 200-499 mg/dLVery High Triglyceride: greater than or equal to 5OO mg/dL Cholesterol 209(H) <200 mg/dL [facility] Comment:Desirable Cholestero l: less than 200 mg/dLBorderline High Cholesterol: 200-239 mg/dLHigh Cholesterol: greater than 239 mg/dL LDL Cholesterol Calculated 142(H) <100 mg/dL [facility] Comment:Desirable LDL: less than 100 mg/dLNear Optimal/Above Optimal LDL: 110- 129 mg/dLBorderline High LDL: 130-159 mg/dLHigh LDL: 160-189 mg/dLVery High LDL: greater than or equal to 190 mg/dL HDL Cholesterol 39(L) >40 mg/dL [facility] Comment:Desirable HDL: great er than 40 mg/dL Note: This HDL assay may give artificially low results in patients with liver disease. Blood Venous blood specimen / Unknown 09/19/2024 8:55 AM EDT 09/19/2024 2:17 PM EDT us Tila Del Rosario MD LAB BLOOD ORDERABLES Final Resul t Performing Organization Address City/[facility]/ZIP Co de Phone Number [facility] [address] [place] [address] [phone] * Hm Colonoscopy (05/19/2023) Pathologist [facility] Colonoscopy Normal Normal Narrative Susu Gavin MD - 05/19/2023 Normal path for random bx, done in [facility], report in media Historical Provider MD HEALTH MAINTENANCE Final Result * Hepatitis C Ab (05/30/2022 3:01 PM EST) Pathologist [facility] Hepatitis C Antibody Nonreactive Nonreactive [facility] Comment:Antibodies to HCV no t detected; does not exclude early acuteHCV infection. 05/30/2022 3:01 PM EST 05/30/2022 3:01 PM EST [facility] External Provider LAB BLO OD ORDERABLES Final Result [facility] [address] [place] [address] [phone] * HIV 1/2 ANTIGEN/ANTIBODY,FOURTH GENERATION W/RFL (02/28/2022 8:46 AM EDT) [facility] HIV-1/2 ANTIGEN AND ANTIBODIES, 4TH GENERATION W/ REFLEX NON-REACT MARA NON-REACT MARA [facility] Comment: HIV-1 antigen and [...] purpose. For additional information please refer to http://education.[employer].muzu tv/faq/QMI464 (This link is being provided for informational/ educational purposes only.) The performance of this assay has not been clinically validated in patients less than 2 years old. 02/28/2022 8:46 AM EDT us Susu Gavin MD LAB BLOOD ORDERABLES Final Re sult [facility] [address] from Last 3 Months or Most [...] 06/17/2025 Patient has chronic kidney disease 06/17/2025 Insurance HSN PARTIAL Care Teams Systems Management Consultant Relationship Specialty Start Date End Date Susu Gavin MD [address] [place] [phone] PCP - General Family Medicine 02/25/22
--- OUTSIDE RECORDS SUMMARY | 2025-06-17 15:30 | XMS_ITS | Encounter Summary ---
Author Organization [employer] Address [address] [place] [address] Care Team Providers Care Quality Measurement Specialist Name Role Phone Susu Gavin MD Primary Care Provider [phone] Reason for Visit * Reason Onset Date Comments Transfer 06/17/2025 Encounter Details Date Type Department Care Team ([facility] Contact Info) Description 06/17/2025 Telephone [facility] MEDICINE [address] [place] [address] Susu Gavin MD [address] [place] [address] Transfer Social History Tobacco Use Types Packs/Day Years [...] encounter Miscellaneous Notes * Telephone Encounter - Yris Cai - 06/17/2025 10:36 AM EST Pt walked in requesting to be transferred over to [place] office as it is more convenient for her. Pt requests Dr perez as new pcp. documented in this encounter Plan of Treatment Upcoming Encounters Date Type Department Care Team (Late st Contact Info) Description 07/07/2025 11:30 AM EST Clinical Support [facility] MED & PEDS [address] [place] [address] 08/07/2025 10:15 AM EST Office Visit [facility] MED & PEDS [address] [place] [address] Susu Gavin MD [address] [place] [address] documented as of this encounter Goals Goal [...] Care Plan Weekly blood pressure task No Cai, Yris Weekly blood pressure task Care Plan Weekly blood pressure task No Cai Yris Patient has chronic kidney disease Care Plan Patient has chronic kidney disease No Cai, Yris Patient has chronic kidney disease Care Plan Patient has chronic kidney disease No Cai Yris Weekly blood pressure task Care Plan Weekly [...] Cobb [place] documented as of this encounter Visit Diagnoses Not on filedocumented in this encounter Additional Health Concerns Active [...] documented as of this encounter Care Teams Quality Measurement Specialist Relationship Specialty Start Date End Date Susu Gavin MD [address] [place] [phone] PCP - General Family Medicine 02/25/22 documented as of this encounter
--- OUTSIDE RECORDS SUMMARY | 2025-06-17 15:30 | XMS_ITS | Patient Health Record ---
Author Organization [facility] Address [address] [place] [address] Care Team Providers Care Shoe Patternmaker Name Role Phone Baylee - DO NOT USEDiana ry Care Provider Unavailable Savanna Riggs Unavailable Reason For Referral No Information Plan Of Treatment No Information
--- OUTSIDE RECORDS SUMMARY | 2025-06-17 15:30 | XMS_ITS | Encounter Summary ---
Author Organization [employer] Address [address] [facility] [address]t [place] [address] Care Team Providers Care Bell Attendant Name Role Phone Susu Gavin MD Primary Care Provider [phone] Encounter Details Date Type Department Care Team ([facility] Contact Info) Description 06/17/2025 Results Follow-Up [facility] MEDICINE [address] [place], [place] [phone] Bindu Mendoza MD [address] [place] [address] XR Foot 3+ Views Bilateral Social History Tobacco Use Types Packs/Day Years [...] 07/07/2025 11:30 AM EST Clinical Support [facility] PEDS [address] [place] [address] 08/07/2025 10:15 AM EST Office Visit [facility] [address] [place] [address] Susu Gavin MD [address] [place] [address] documented as of this encounter Goals Goal [...] Weekly blood pressure task No Cai Yris Weekly blood pressure task [...] documented as of this encounter Care Teams Bell Attendant Relationship Specialty Start Date End Date Susu Gavin MD [address] [place] [address] PCP - General Family Medicine 02/25/22 documented as of this encounter
--- OUTSIDE RECORDS SUMMARY | 2025-06-17 15:30 | XMS_ITS | Encounter Summary ---
Author Organization [employer] Address [address] [place] [address] Care Team Providers Care Nitrocellulose Maker Name Role Phone Susu Gavin MD Primary Care Provider [phone] Encounter Details Date Type Department Care Team (Latest Contact Info) Description 06/17/2025 Travel Social History Tobacco Use Types Packs/Day [...] Upcoming Encounters Date Type Department Care Team ([facility] st Contact Info) Description 07/07/2025 11:30 AM EST Clinical Support [facility] MED & PEDS [address] [place] [address] 08/07/2025 10:15 AM EST Office Visit [facility] MED & PEDS [address] [place] [address] Susu Gavin MD [address] [place] [address] documented as of this encounter Goals Goal [...] Plan Weekly blood pressure task No CaiYris Weekly blood pressure task Care Plan Weekly blood pressure task No Cai, Yris Patient has chronic kidney disease Care Plan Patient has chronic kidney disease No Cai, Yris Patient has chronic kidney disease Care Plan Patient has chronic kidney disease No Cai, Yris Weekly blood pressure task [...] documented as of this encounter Care Teams Nitrocellulose Maker Relationship Specialty Start Date End Date Susu Gavin MD [address] [place] [phone] PCP - General Family Medicine 02/25/22 documented as of this encounter
[2025-06-17 15:59] LABS: Anion Gap 10 (12-20); Blood Urea Nitrogen 11 mg/dL (9-16); Calcium 9.0 mg/dL (8.4-10.2); Carbon Dioxide 28 mmol/L (22-29); Chloride 108 mmol/L (96-108); Estimated Glomerular Filt Rate 47; Magnesium 1.6 mg/dL (1.6-2.6); Potassium 4.0 mmol/L (3.3-5.1); Sodium 142 mmol/L (135-145)
== END 2025-06-17 11:40 | disposition home or self-care (01) ==
LOC: HO.HHCL 11:39
PROVIDERS: PCP Family Medicine; Visit Provider Family Medicine
DX: M79.671 Pain in right foot (principal); G89.29 Other chronic pain; M79.672 Pain in left foot; R20.0 Anesthesia of skin; R20.2 Paresthesia of skin
CPT/HCPCS: 36415; 73630; 80048; 83735; 84443

== ENCOUNTER → 2025-06-17 12:00 | Outpatient (BNV) | payer MEDICAID, SELFPAY | PROVIDERS: PCP Family Medicine; Visit Provider Radiology Diagnostic Radiology | DX: M77.32 Calcaneal spur, left foot (principal); M77.31 Calcaneal spur, right foot | CPT/HCPCS: 73630 ==

== ENCOUNTER 2025-06-24 09:49 | Outpatient (REF) | payer MEDICAID, SELFPAY ==
--- NOTE | 2025-06-24 09:52 | EMG_ITS ---
Chief complaint: Pain in feet and legs Referred by: Dr. Lavelle Montgomery Procedure done: NCS and EMG of bilateral lower extremities Bilateral tibial and peroneal motor studies were performed with F responses and tibial H reflexes. Bilateral superficial peroneal, sural, and median lateral mixed plantars sensory studies were performed and needle examination was performed. Findings: Motor distal latencies were mildly prolonged. Motor amplitude were mostly moderately reduced with mild slowing of conduction velocity. Sensory amplitudes were moderately reduced with mild slowing of conduction velocity. Amplitude reduction was severe in feet. 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 Codin [id number] x2 MTDD
--- OUTSIDE RECORDS SUMMARY | 2025-06-24 10:38 | XMS_ITS | Patient Health Record ---
Author Organization [facility] Address [address] [place] [address] Care Team Providers Care Online Advertising Manager Name Role Phone Baylee - DO NOT USEDiana ry Care Provider Unavailable Savanna Riggs Unavailable Reason For Referral No Information Plan Of Treatment No Information
--- OUTSIDE RECORDS SUMMARY | 2025-06-24 10:38 | XMS_ITS | Encounter Summary ---
Author Organization [employer] Address [address] [place] [address] Care Team Providers Care Bridge Welder Name Role Phone Susu Gavin MD Primary Care Provider [phone] Reason for Visit * Reason Onset Date Comments Results 10/10/2023 Encounter Details Date Type Department Care Team ([facility] Contact Info) Description 10/10/2023 Telephone [facility] MEDICINE [address] [place] [address] Susu Gavin MD [address] [place] [address] Results Social History Tobacco Use Types Packs/Day [...] Description 07/07/2025 11:30 AM EST Clinical Support [facility] MED & PEDS [address] [place] [address] 08/07/2025 10:15 AM EST Office Visit [facility] MED [facility] PEDS [address] [place] [address] Susu Gavin MD [address] [place] [address] documented as of this encounter Visit Diagnoses Not on filedocumented in this encounter Additional Health Concerns Assessment Noted Time PHQ-9 Depression Total Score: 4 07/28/19 23 1:52 PM EST documented as of this encounter Care Teams Bridge Welder Relationship Specialty Start Date End Date Susu Gavin MD [address] [place] [address] PCP - General Family Medicine 02/25/22 documented as of this encounter
--- OUTSIDE RECORDS SUMMARY | 2025-06-24 10:38 | XMS_ITS | Encounter Summary ---
Author Organization [employer] Address [address] [facility] [address] [place] [address] Care Team Providers Care Geophysicist Name Role Phone Susu Gavin MD Primary Care Provider [phone] Encounter Details Date Type Department Care Team ([facility] Contact Info) Description 06/17/2025 Results Follow-Up [facility] MEDICINE [address] [place], [place] [phone] Bindu Mendoza MD [address] [place] [address] XR Foot 3+ Views Bilateral Social History [...] 11:30 AM EST Clinical Support [facility] MED & PEDS [address] [place] [address] 08/07/2025 10:15 AM EST Office Visit [facility] MED & PEDS [address] [place] [address] Susu Gavin MD [address] [place] [address] documented as of this encounter Goals Goal [...] Patient has chronic kidney disease No CaiYris Patient has chronic kidney disease Care Plan [...] chronic kidney disease No Shaunna Cobb MA Weekly blood pressure task Care Plan Weekly blood pressure task No Alissa Stephenson MA Weekly blood pressure task Care Plan Weekly blood pressure task No Alissa Stephenson MA Patient has chronic kidney disease Care Plan Patient has chronic kidney disease No Alissa Stephenson MA Patient has chronic kidney disease Care Plan Patient has chronic kidney disease No Alissa Stephenson MA Weekly blood pressure task Care Plan Weekly blood pressure task No Sahara Sharp Weekly blood pressure task Care Plan Weekly blood pressure task No Sahara Sharp Patient has chronic kidney disease Care Plan Patient has chronic kidney disease No Sahara Sharp Patient has chronic kidney disease Care Plan Patient has chronic kidney disease No Sahara Sharp documented as of this encounter Visit Diagnoses [...] documented as of this encounter Care Teams Geophysicist Relationship Specialty Start Date End Date Susu Gavin MD [address] [place] [phone] PCP - General Family Medicine 02/25/22 documented as of this encounter
--- OUTSIDE RECORDS SUMMARY | 2025-06-24 10:38 | XMS_ITS | Clinical Summary ---
Author Organization [employer] Address [address] [facility] [address] [place] [address] Care Team Providers Care Hand Bookbinder Name Role Phone Susu Gavin MD Primary Care Provider [phone] Allergies No known active allergies Medications Blood [...] Foot pain, bilateral 05/18/2023 Assessment & Plan (06/17/2025 3:56 PM EST): Chronic pain of both feet Normal skin temp noted normal pedal pulses, decrease sensory in right foot , normal strength in Les 10/2024 AST 32 Cr 1.39, GFR 62 ,CBC wnl 05/2025 CBC wnl Today capillary hb1Ac 5.7 - Chronic pain, numbness, and tingling in both feet with possible multifactorial etiology, including neuropathy and plantar fasciitis. Differential includes neuropathic pain possibly related to lumbar spine pathology and/or local foot pathology such as plantar fasciitis and heel spurs. -Referred today for EMG/NCS to evaluate for neuropathy -Referred to podiatry for further evaluation of foot pain -Ordered bilateral foot X-rays - advised to complete laboratory tests for magnesium, thyroid, and chemistry panel ordered by [facility] provider Instructed to follow up with laboratory to ensure completion of pending tests from May 16, 2025. -Advised to restart gabapentin at bedtime for neuropathic symptoms, with option to increase to twice daily after two weeks if tolerated. -Prescribed acetaminophen PRN. -requested [place] to try to get report of last back MRI done per pt w her PM at [facility] 1 to 2 y ago -Continue to f w PCP Assessment & Plan (05/18/2023 2:20 PM EST): Patient presented visit with same complaint of foot pain, therefore, patient will be referred to Podiatry. In addition, patient will be prescribed pain medications. Colon cancer screening 05/18/2023 Assessment & Plan (05/18/2023 2:04 PM EST): Will undergo colonoscopy in [facility] in [place] tomorrow per her report Plantar fasciitis 06/24/2022 [...] 2021 Hypertensive disorder 04/14/2022 Assessment & Plan (06/17/2025 3:55 PM EST): BP elevated here 144/66 -pt reports not taking any BP med ,states when take BP is elevated anyway so decided to stop - Advised to follow up with nursing staff for blood pressure checks in 2-3 weeks-got apt today -advised to take BP logs for apt -explained that ifat home having elevated BP to resume her amlodipine -continue to f w PCP Assessment & Plan (05/18/2023 2:21 PM EST): [...] recommended reduction of 20-30% of maintenance calories; decorative cutting machine tender referral offered. Recommended to decrease soda and [...] Description 06/17/2025 11:15 AM EST Office Visit [facility] MEDICINE [address] [place] [address] Bindu Mendoza MD Chronic pain of both feet (Primary Dx); Prediabetes; Hypertension, unspecified type; Foot pain, bilateral 06/17/2025 Telephone [facility] MEDICINE [address] [facility] [place] [address] Bindu Mendoza MD MRI notes? 06/17/2025 Results Follow-Up [facility] MEDIC[facility] [address] [place] [address] Bindu Mendoza MD XR Foot 3+ Views Bilateral 06/17/2025 Travel 06/17/2025 Telephone [facility] MEDICINE [address] [place] [address] Susu Gavin MD Transfer 05/30/2025 Orders Only GENERIC EXTERNAL DATA DEPARTMENT Provider, Generic External Data 05/19/2025 Results Follow-Up [facility] MED & PEDS [address] [place] [address] Perry Levine MD CBC auto differential, Vitamin B12/Folate, Serum Panel 05/16/2025 10:40 AM EST Office Visit [facility] [address] [place] [address] Perry Levine MD Numbness and tingling of both feet (Primary Dx); Vitamin D deficiency; Essential hypertension 05/16/2025 Telephone [facility] [address] [place] [address] Perry Levine MD 05/16/2025 Travel from Last [...] AM EST Clinical Support [facility] MED & PEDS [address] [place] [address] 08/07/2025 10:15 AM EST Office Visit [facility] [address] [place] [address] Susu Gavin MD [address] [place] [address] Health Maintenance Due Date Last Done Comments [...] Weekly blood pressure task No CaiYris tinoco Patient has chronic kidney disease Care Plan [...] has chronic kidney disease No Sahara Sharp Procedures Procedure Name Priority Date/Time Associated Diagnosis Comments XR FOOT 3+ VIEWS BILATERAL Routine 06/17/2025 12:21 PM EST Chronic pain of both feet MAGNESIUM Routine 06/17/2025 11:44 AM EST Numbness and tingling of both feet BASIC METABOLIC PANEL Routine 06/17/2025 11:44 AM EST Numbness and tingling of both feet TSH W/REFLEX TO FT4 Routine 06/17/2025 1 1:44 AM EST Numbness and tingling of both feet POCT GLYCATED HEMOGLOBIN, TOTAL Routine 06/17/2025 11:39 AM EST Prediabetes POCT GLUCOSE (CPT-41306) Routine 06/17/2025 11:39 AM EST Prediabetes SARS [...] PM EST Narrative 06/17/2025 12:48 PM EST [place] [address] XRay Report Signed Patient: Paula Mendez MR#: [id number] : 1975 Acct:[id number] Age/Sex: 50 / F ADM Date: 06/17/25 Loc: [facility] Attending Dr: Perry Levine MD Ordering Physician: Bindu Mendoza MD Date of Service: 06/17/25 Procedure(s): XR Foot Nikolay 3V Accession Number(s): [id number] cc: Bindu Mendoza MD; Susu Gavin MD [...] by: Bryant Lantigua MD 06/17/2025 12:45 PM [facility] Dictated By: Bryant Lantigua MD Signed By: <Electronically signed by Bryant Lantigua MD in OV> 06/17/25 1245 DD/ 1221 TD/TT: 06/17/25 1239 Learning Designer: Procedure Note Donotuseinterpreter, Image - 06/17/[address] [address] XRay Report Signed Patient: Paula Mendez#: [id number] : 1975Acct:[id number] Age/Sex: 50 / FADM Date: 06/17/25 Loc: HO.[facility] Attending Dr: Perry Levine MD Ordering Physician: Bindu Mendoza MD Date of Service: 06/17/25 Procedure(s): XR Foot Nikolay 3V Accession Number(s): [id number] cc: Bindu Mendoza MD; Susu Gavin MD [...] 06/17/25 1245 DD/ 1221 TD/TT: 06/17/25 1239 Learning Designer: us Bindu Montgomery MD IMG XR PROCEDURES Edited Result - Final * TSH W/Reflex to FT4 (06/17/2025 11:44 AM EST) TSH reflex Free T4 1.53 0.32 - 4.0 uIU/mL [facility] Blood Venous blood specimen / Unknown 06/17/2025 11:44 AM EST 06/17/2025 2:54 PM EST us Perry Levine MD LAB BLOOD ORDERABLES Final Resul t [facility] [address] [place] [phone] * Magnesium (06/17/2025 11:44 AM EST) Magnesium 1.6 1.6 - 2.6 mg/dL [facility] Blood Venous blood specimen / Unknown 06/17/2025 11:44 AM EST 06/17/2025 2:54 PM EST Perry Levine MD LAB BLOOD ORDERABLES Final Resul t Performing Organization Address [facility] de Phone Number [facility] [address] [place] [address] [phone] * (ABNORMAL) Basic Metabolic Panel (06/17/2025 11:44 AM EST) Sodium 142 135 - 145 mmol/L [facility] Potassium 4.0 3.3 - 5.1 mmol/L [facility] Chloride 108 96 - 108 mmol/L [facility] Carbon Dioxide 28 22 - 29 mmol/L [facility] Anion Gap 10(L) 12 - 20 [facility] Urea Nitrogen (BUN) 11 9 - 16 mg/dL [facility] Creatinine, Serum 1.21 0.5 - 1.4 mg/dL [facility] Estimated Glomerular Filt Rate 47 [facility] Comment:Chronic Kidney Disea se: Estimated GFR < 60 mL/min/1.32i4Okbrbs Kidney Disease: Estimated GFR < 15 mL/min/1.73m2 Glucose 111 60 - 115 mg/dL [facility] Calcium 9.0 8.4 - 10.2 mg/dL [facility] Blood Venous blood specimen / Unknown 06/17/2025 11:44 AM EST 06/17/2025 2:54 PM EST Perry Leivne MD LAB BLOOD ORDERABLES Final Resul t Performing Organization Address [facility] Co de Phone Number [facility] [address] [place] [address] [phone] * POCT Hgb A1c (06/17/2025 11:39 AM EST) Hemoglobin A1C 5.7 4.0 - 5.7 % QC Media Lot # [id number] Lot# Expiration Date Blood 06/17/2025 11:3 9 AM EST Bindu Montgomery MD POINT OF CARE YOLANDA T ENTER/EDIT ORDERABLES Final Result * POCT Glucose (06/17/2025 11:39 AM EST) Pathologist [facility] Glucose Blood, POC 160 60 - 200 mg/dL QC Media Lot # [id number] Lot# Expiration Date Blood Capillary blood specimen / Unknown 06/17/2025 11:39 AM EST Bindu Montgomery MD POINT OF CARE YOLANDA T ENTER/EDIT ORDERABLES Final Result * Strep A Nucleic Acid (05/30/2025 2:49 PM EST) Pathologist [facility] IDNOW SERIAL# [id number] [facility] Strep A Nucleic Acid Negative Negative [facility] Comment:All test results mus t be correlated with clinical findings.This test has not been evaluated for monitoring treatment ofinfection.Additional follow-up testing using the culture method isrequired if the result is negative and clinical symptomspersist, or in the event of an acute rheumatic feveroutbreak. 05/30/2025 2:49 PM EST 05/30/2025 2:53 PM EST Generic External Data Provider LAB MICROBIOLOGY - GENERAL ORDERABLES Final Result [facility] [address] [place] [phone] * SARS-CoV-2 RNA, Influenza A/B, and RSV RNA, Ql NAAT (05/30/2025 2:49 PM EST) Pathologist [facility] Influenza A PCR NEGATIVE Negative [facility] Influenza B PCR NEGATIVE Negative [facility] Resp Syncy Virus RNA Qual PCR NEGATIVE Negative [facility] SARS COV2 PCR NEGATIVE Negative [facility] Comment:All test results mus t [...] use by authorized laboratories.Testing performed on the [employer] GeneXpert utilizingreal-time RT-PCR.All SARS CoV2 and positive influenza A/B results arereported to [facility]. 05/30/2025 2:49 PM EST 05/30/2025 2:53 PM EST Generic External Data Provider LAB MICROBIOLOGY - GENERAL ORDERABLES Final Result Performing Organization Address [facility] de Phone Number [facility] [address] [place] [phone] * Vitamin B12/Folate, Serum Panel (05/16/2025 11:26 AM EST) Vitamin B12 334 200 - 900 pg/mL [facility] Comment:NORMAL 200-900 PG/ML INDETERMINATE 160-199 PG/ML DEFICIENT < 160 PG/ML Folate 6.4 > or = 4.0 ng/mL [facility] Comment:Reference Values:> o r = 4.0 [...] ORDERABLES Final Resul t Performing Organization Address [facility] Co de Phone Number [facility] [address] [place] [phone] * (ABNORMAL) CBC auto differential (05/16/2025 11:26 AM EST) White Blood Count 7.1 4.8 - 10.8 X10*3/uL [facility] Red Blood Count 4.51 4.20 - 5.50 X10*6/uL [facility] Hemoglobin 13.8 12.0 - 16.0 g/dl [facility] Hematocrit 41.6 37.0 - 47.0 % [facility] Mean Corpuscular Volume 92.2 80.0 - 98.0 fL [facility] Mean Corpuscular Hemoglobin 30.6 27.0 - 33.0 pg [facility] Mean Corpuscular HGB Conc 33.2 31.0 - 35.0 g/dl [facility] Red Cell Distribution Width 12.0 11.0 - 16.0 % [facility] Platelet Count 286 160 - 400 X10*3/uL [facility] Mean Platelet Volume 11.0 9.4 - 12.3 fL [facility] Neutrophils Percent Auto 48.5 45 - 73 % [facility] Imm Gran Pct Auto 0.4 0.0 - 0.4 % [facility] Lymphocytes Percent Auto 41.8(H) 20 - 40 % [facility] Monocytes Percent Auto 5.8 2 - 11 % [facility] Eosinophils Percent Auto 2.6 0 - 4 % [facility] Basophils Percent Auto 0.9 0 - 2 % [facility] NRBC Pct Auto 0.0 0.0 - 0.2 /100WBC [facility] Neutrophils Absolute Auto 3.4 2.0 - 8.3 x10*3/uL [facility] Imm Gran Abs Auto 0.03 0.00 - 0.03 X10*3/uL [facility] Lymphocytes Absolute Auto 3.0 1.2 - 4.9 X10*3/uL [facility] Monocytes Absolute Auto 0.4 0.1 - 1.2 X10*3/uL [facility] Eosinophils Absolute Auto 0.2 0.0 - 0.4 X10*3/uL [facility] Basophils Absolute Auto 0.1 0.0 - 0.2 X10*3/uL [facility] NRBC Abs Auto 0.000 0.0 - 0.012 X10*3/uL [facility] Blood Venous blood specimen / Unknown 05/16/2025 11:26 AM EST 05/16/2025 1:16 PM EST Perry Levine MD LAB BLOOD ORDERABLES Final Resul t Performing Organization Address [facility] de Phone Number [facility] [address] [place] [phone] * Vitamin D 1,25 dihydroxy (05/16/2025 11:26 AM EST) Vit D (1,25-Dihydroxy) Total 52 18 - 72 pg/mL [facility] VITAMIN D (1,25 [place]) D3 52 pg/mL [facility] Vitamin D (1,25 [place]) D2 <8 pg/mL [facility] Comment:Vitamin D3, 1,25(OH) 2 indicates both endogenousproduction and supplementation. Vitamin D2, 1,25(OH)2is an indicator of exogenous sources, such as diet orsupplementation. Interpretation and therapy are basedon measurement of Vitamin D,1,25(OH)2, Total.This test was developed and its analyticalperformance characteristics have been determinedby [employer] [place] [address], [place].It has not been cleared or approved by the FDA. Thisassay has been validated pursuant to the CLIAregulations and is used for clinical purposes.THIS TEST WAS PERFORMED AT:[employer] [id number] [place] [address]PNNJFDLHENRIETTA DUQUE MD,PHD Blood Venous blood specimen / Unknown 05/16/2025 11:26 AM EST 05/16/2025 1:16 PM EST Perry Levine MD LAB BLOOD ORDERABLES Final Resul t Performing Organization Address [facility] Co de Phone Number [facility] [address] [place] [phone] * (ABNORMAL) Lipid Panel, Standard (09/19/2024 8:55 AM EDT) Triglycerides 144 <150 mg/dL [facility] Comment:Desirable Triglyceri de: less than 150 mg/dLBorderline High Triglyceride 150-199 mg/dLHigh Triglyceride: 200-499 mg/dLVery High Triglyceride: greater than or equal to 5OO mg/dL Cholesterol 209(H) <200 mg/dL [facility] Comment:Desirable Cholestero l: less than 200 mg/dLBorderline High Cholesterol: 200-239 mg/dLHigh Cholesterol: greater than 239 mg/dL LDL Cholesterol Calculated 142(H) <100 mg/dL [facility] Comment:Desirable LDL: less than 100 mg/dLNear Optimal/Above Optimal LDL: 110- 129 mg/dLBorderline High LDL: 130-159 mg/dLHigh LDL: 160-189 mg/dLVery High LDL: greater than or equal to 190 mg/dL HDL Cholesterol 39(L) >40 mg/dL [facility] Comment:Desirable HDL: great er than 40 mg/dL Note: This HDL assay may give artificially low results in patients with liver disease. Blood Venous blood specimen / Unknown 09/19/2024 8:55 AM EDT 09/19/2024 2:17 PM EDT Tila Del Rosario MD LAB BLOOD ORDERABLES Final Resul t [facility] [address] [place] [phone] * Hm Colonoscopy (05/19/2023) Colonoscopy Normal Normal Narrative Susu Gavin MD - 05/19/[address]23 [address] path for random bx, done in [facility], report in media Historical Provider HEALTH MAINTENANCE Final Result * Hepatitis C Ab (05/30/2022 3:01 PM EST) Hepatitis C Antibody Nonreactive Nonreactive [facility] Comment:Antibodies to HCV no t detected; does not exclude early acuteHCV infection. 05/30/2022 3:01 PM EST 05/30/2022 3:01 PM EST [facility] External Provider LAB BLO OD ORDERABLES Final Result Performing Organization Address [facility] de Phone Number [facility] [address] [place] [phone] [phone] * HIV 1/2 ANTIGEN/ANTIBODY,FOURTH GENERATION W/RFL [...] purpose. For additional information please refer to http://education.CardiOx.Fastly/faq/SAL514 (This link is being provided for informational/ educational purposes only.) The performance of this assay has not been clinically validated in patients less than 2 years old. 02/28/2022 8:46 AM EDT Susu Gavin MD LAB BLOOD ORDERABLES Final Re sult Performing Organization Address [facility] Co de Phone Number [facility] [address] from Last 3 Months or Most [...] Patient has chronic kidney disease 06/17/2025 Insurance [facility] C3 Care Teams Hand Bookbinder Relationship Specialty Start Date End Date Susu Gavin MD [address] [place] [phone] PCP - General Family Medicine 02/25/22
--- OUTSIDE RECORDS SUMMARY | 2025-06-24 10:38 | XMS_ITS | Clinical Summary ---
Author Organization [address] [facility] Address [address] [place] [address] Phone Care Team Providers Care Dressing Room Porter Name Role Phone Susu Gavin MD Primary Care Provider Surgical History Surgery Date Site/Laterality Comments HYSTERECTOMY 1997 PROCEDURE: HISTORICAL HYSTERECTOMY OTHER SURGICAL HISTORY 2010 PROCEDURE: [place] ARTHRD ANT TRANSORL/XTRORAL C1-C2 W/WO EXC ODNTD; COMMENT: neck fusion Medical History Medical History Date Comments Asthma 10/29/2021 DX:Asthma HTN (hypertension) 10/29/2021 DX:HTN (hyper tension) Peripheral neuropathic pain 10/29/2021 DX:P eripheral neuropathic pain; COMMENT: Feet bilaterally, podiatry ref to neurology. Morbid obesity with BMI of 4 0.0-44.9, adult ([facility] V24, [facility] V28) 10/29/2021 DX:Morbid obesity wit h BMI of 40.0-44.9, adult ([facility]) CKD (chronic kidney disease) stage 3, GFR 30-59 ml/min ([facility] V24, [facility] V28) 10/29/2021 DX:CKD (chronic kidney disea se) stage 3, GFR 30-59 ml/min ([facility]) Generalized edema 10/29/2021 DX:Generalized edema 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 ([facility] V24, [facility] V28) 10/29/2021 DX:Type 2 diabetes mellitus with neurological manifestation ([facility]) Type 2 diabetes mellitus wit h renal manifestations ([facility] V24, [facility] V28) 10/29/2021 DX:Type 2 diabetes mellitus with renal manifestations ([facility]) 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 DX:P ostherpetic polyneuropathy Genital herpes 07/10/2006 DX:Genital herpe s Proteinuria 08/11/2010 DX:Proteinuria; COMMENT: Dr vargas Syncope 07/25/2008 DX:Syncope Family History Medical History Relation Name Comments Blindness Neg Hx Cataracts Neg Hx Glaucoma Neg Hx Macular degeneration Neg Hx Strabismus Neg Hx Social History Tobacco Use Types Packs/Day Years Used Date Smoking Tobacco: Never Smokeless Tobacco: Never Alcohol Use Standard Drinks/Week Comments No 0 (1 standard drink = 0.6 oz pur e alcohol) Comments Unknown Sex and Gender Information Value Date Recorded Sex Assigned at Not on file Legal Sex Female 5:47 AM EST Gender Identity Not on file Sexual Orientation Not on file Plan of Treatment Health Maintenance Due Date Last Done Comments Breast Cancer Screening 1974 Colorectal Cancer Screening: Colonoscopy 1974 Diabetes: Annual GFR (Glomer ular Filtration Rate) 1974 Diabetes: Annual Foot Exam 1984 Diabetes: Annual Retina Eye Exam 1984 DTaP,Tdap,and Td Vaccines (1 - Tdap) 1993 Pneumococcal Vaccine: 50+ Ye ars (1 of 2 - PCV) 1993 Cervical Cancer Screening: P ap Smear 1995 Hepatitis B Vaccines (2 of 3 - 19+ 3-dose series) 04/19/2004 03/22/2004 Cholesterol Screening (Lipid Panel) 06/05/2022 HIV Screening 06/05/2022 Hepatitis C Screening 06/05/2022 Social Influencers of Health Screening 06/05/2022 Diabetes: Annual Urine Albumin-Creatinine Ratio (uACR) 06/14/2022 Diabetes: Blood Sugar Contro l Test (HGBA1C) 06/14/2022 Hypertension/CHF/CAD Annual BMP Blood Test 06/14/2022 RSV Immunization Adult Patie nts (1 - Risk 50-74 years 1-dose series) 2024 Zoster Vaccines (1 of 2) 2024 Depression Screening 07/03/2024 COVID-19 Vaccine (1 - 2024-2 6 season) 2025 Influenza Vaccine (#1) 2025 05/12/2010 HIB Vaccines Aged Out No longer eligi [...] on patient's age to complete this topic MMR Vaccines Aged Out No longer eligi ble based on patient's age to complete this topic Meningococcal ACWY Vaccine Aged Out N o longer eligible based on patient's age to complete this topic Meningococcal B Vaccine Aged Out No l onger eligible based on patient's age to complete this topic RSV Immunization Patients Un cj 20 months Aged Out No longer eligible b ased on patient's age to complete this topic Varicella Vaccines Aged Out No longer eligible based on patient's age to complete this topic Insurance MEDICAID - [place] Care Teams Dressing Room Porter Relationship Specialty Start Date End Date Susu Gavin MD [address] [place] [address] PCP - General Family Medicine 02/25/22
--- OUTSIDE RECORDS SUMMARY | 2025-06-24 10:38 | XMS_ITS | Clinical Summary ---
Author Organization [facility] Facility Address [address] [place] [address] Care Team Providers Care Air Traffic Control Operator Name Role Phone Susu Gavin MD Primary Care Provider [phone] Allergies No known active allergies Medications ProAir [...] 49 Years) Discontinued 05/18/2023 Insurance [place] [facility] [place] [address] [place] [address] Medicaid [place] Care Teams Air Traffic Control Operator Relationship Specialty Start Date End Date Susu Gavin MD PCP - General Family Medicine 03/14/22
== END 2025-06-24 09:50 | disposition home or self-care (01) ==
LOC: HO.NEURO 09:49
PROVIDERS: Visit Provider Student in an Organized Health Care Education/Training Program
DX: M79.671 Pain in right foot (principal); M79.672 Pain in left foot; G89.29 Other chronic pain; R20.0 Anesthesia of skin
CPT/HCPCS: 95886; 95913

== ENCOUNTER → 2025-06-24 09:52 | Outpatient (BNV) | payer MEDICAID, SELFPAY | PROVIDERS: Visit Provider Psychiatry & Neurology Neurology | DX: G62.89 Other specified polyneuropathies (principal) | CPT/HCPCS: 95886; 95912 ==

== ENCOUNTER 2025-06-27 11:46 | Outpatient (REF) | payer MEDICAID, SELFPAY ==
--- OUTSIDE RECORDS SUMMARY | 2025-06-27 11:53 | XMS_ITS | Patient Health Record ---
Author Organization [facility] Address [address] [place] [address] Care Team Providers Care Job Captain Name Role Phone Baylee - DO NOT USEDiana ry Care Provider Unavailable Savanna Riggs Unavailable Reason For Referral No Information Plan Of Treatment No Information
--- OUTSIDE RECORDS SUMMARY | 2025-06-27 11:53 | XMS_ITS | Clinical Summary ---
Author Organization [employer] Address [address] [facility] 7t [place] [address] Care Team Providers Care Speech Pathologist Assistant Name Role Phone Susu Gavin MD Primary Care Provider [phone] Allergies No known active allergies Medications Blood [...] magnesium, thyroid, and chemistry panel ordered by [facility] provider Instructed to follow up with laboratory to ensure completion of pending tests from May 16, 2025. -Advised to restart gabapentin at bedtime for neuropathic symptoms, with option to increase to twice daily after two weeks if tolerated. -Prescribed acetaminophen PRN. -requested [place] to try to get report of last back MRI done per pt w her PM at [facility] 1 to 2 y ago -Continue to f w PCP Assessment & Plan (05/18/2023 2:20 PM EST): Patient presented visit with same complaint of foot pain, therefore, patient will be referred to Podiatry. In addition, patient will be prescribed pain medications. Colon cancer screening 05/18/2023 Assessment & Plan (05/18/2023 2:04 PM EST): Will undergo colonoscopy in [facility] in [place] tomorrow per her report Plantar fasciitis 06/24/2022 [...] recommended reduction of 20-30% of maintenance calories; drying and winding supervisor referral offered. Recommended to decrease soda and [...] Encounters Date Type Department Care Team Description 06/25/2025 Telephone [facility] [address] [facility] [place] [address] Modesta Bullard, RN Results 06/24/2025 Orders Only [facility] [address] [place] [address] Bindu Mendoza MD Neuropathy (Primary Dx) 06/17/2025 11:15 AM EST Office Visit [facility] [address] [place] [address] Bindu Mendoza MD Chronic pain of both feet (Primary Dx); Prediabetes; Hypertension, unspecified type; Foot pain, bilateral 06/17/[address] [address] Bindu Mendoza MD MRI notes? 06/17/2025 Results Follow-Up [address] [address] Bindu Mendoza MD XR Foot 3+ Views Bilateral 06/17/2025 Travel 06/17/[address] [address] Susu Gavin MD Transfer 05/30/2025 Orders Only GENERIC EXTERNAL DATA DEPARTMENT Provider, Generic External Data 05/19/2025 Results Follow-Up [facility] [address] [place], [place] [phone] Perry Levine MD CBC auto differential, Vitamin B12/Folate, Serum Panel 05/16/2025 10:40 AM EST Office Visit [facility] [address] [place] [phone] Perry Levine MD Numbness and tingling of both feet (Primary Dx); Vitamin D deficiency; Essential hypertension 05/16/2025 Telephone [facility] [address] [address] Perry Levine MD 05/16/2025 Travel from Last [...] Upcoming Encounters Date Type Department Care Team ([facility] st Contact Info) Description 07/07/2025 11:30 AM EST Clinical Support [facility] [address] [place] [address] 08/07/2025 10:15 AM EST Office Visit [facility] [address] [place] [address] Susu Gavin MD [address] [place] [address] Health Maintenance Due Date Last Done Comments [...] Patient has chronic kidney disease No CaiYris tinoco Weekly blood pressure task [...] has chronic kidney disease No [employer] Weekly blood pressure task Care Plan Weekly blood pressure task No Bindu Mendoza MD Weekly blood pressure task Care Plan Weekly blood pressure task No Bindu Mendoza MD Patient has chronic kidney disease Care Plan Patient has chronic kidney disease No Bindu Mendoza MD Patient has chronic kidney disease Care Plan Patient has chronic kidney disease No Bindu Mendoza MD Weekly blood pressure task Care Plan Weekly blood pressure task No Modesta Bullard, PAYAL Weekly blood pressure task Care Plan Weekly blood pressure task No Modesta Bullard, PAYAL Patient has chronic kidney disease Care Plan Patient has chronic kidney disease No Modesta Bullard, PAYAL Patient has chronic kidney disease Care Plan Patient has chronic kidney disease No Modesta Bullard, mold maker apprentice Procedure Name Priority Date/Time Associated Diagnosis Comments [...] 06/17/2025 11:39 AM EST Prediabetes POCT GLUCOSE (CPT-51656) Routine 06/17/2025 11:39 AM EST Prediabetes SARS [...] PM EST Narrative 06/17/2025 12:48 PM EST [address] [address] XRay Report Signed Patient: Paula Mendez MR#: [id number] : 1975 Acct:[id number] Age/Sex: 50 / F ADM Date: 06/17/25 Loc: [facility] Attending Dr: Perry Levine MD Ordering Physician: Bindu Mendoza MD Date of Service: 06/17/25 Procedure(s): XR Foot Nikolay 3V Accession Number(s): [id number] cc: Bindu Mendoza MD; Susu Gavin MD [...] 06/17/25 1245 DD/ 1221 TD/TT: 06/17/25 1239 Linux Programmer: Procedure Note Donotuseinterpreter, Image - 06/17/[address] [address] XRay Report Signed Patient: Paula MendezMR#: [id number] : 1975Acct:[id number] Age/Sex: 50 / FADM Date: 06/17/25 Loc: HO.[facility] Attending Dr: Perry Levine MD Ordering Physician: Bindu Mendoza MD Date of Service: 06/17/25 Procedure(s): XR Foot Nikolay 3V Accession Number(s): [id number] cc: Bindu Mendoza MD; Susu Gavin MD [...] by: Bryant Lantigua MD 06/17/2025 12:45 PM [facility] Dictated By: Bryant Lantigua MD Signed By: <Electronically signed by Bryant Lantigua MD in OV> 06/17/25 1245 DD/ 1221 TD/TT: 06/17/25 1239 Linux Programmer: Bindu Montgomery MD IMG XR PROCEDURES Edited Result - Final * TSH W/Reflex to FT4 (06/17/2025 11:44 AM EST) Pathologist [facility] TSH reflex Free T4 1.53 0.32 - 4.0 uIU/mL [facility] Blood Venous blood specimen / Unknown 06/17/2025 11:44 AM EST 06/17/2025 2:54 PM EST Perry Levine MD LAB BLOOD ORDERABLES Final Resul t Performing Organization Address [facility] Co de Phone Number [facility] [address] [place] [phone] * Magnesium (06/17/2025 11:44 AM EST) [facility] Magnesium 1.6 1.6 - 2.6 mg/dL [facility] Blood Venous blood specimen / Unknown 06/17/2025 11:44 AM EST 06/17/2025 2:54 PM EST Perry Levine MD LAB BLOOD ORDERABLES Final Resul t Performing Organization Address [facility] de Phone Number [facility] [address] [place] [phone] * (ABNORMAL) Basic Metabolic Panel (06/17/2025 11:44 AM EST) [facility] Sodium 142 135 - 145 mmol/L [facility] Potassium 4.0 3.3 - 5.1 mmol/L [facility] Chloride 108 96 - 108 mmol/L [facility] Carbon Dioxide 28 22 - 29 mmol/L [facility] Anion Gap 10(L) 12 - 20 [facility] Urea Nitrogen (BUN) 11 9 - 16 mg/dL [facility] Creatinine, Serum 1.21 0.5 - 1.4 mg/dL [facility] Estimated Glomerular Filt Rate 47 [facility] Comment:Chronic Kidney Disea se: Estimated GFR < 60 mL/min/1.07e1Atsjzd Kidney Disease: Estimated GFR < 15 mL/min/1.73m2 Glucose 111 60 - 115 mg/dL [facility] Calcium 9.0 8.4 - 10.2 mg/dL [facility] Blood Venous blood specimen / Unknown 06/17/2025 11:44 AM EST 06/17/2025 2:54 PM EST Perry Levine MD LAB BLOOD ORDERABLES Final Resul t [facility] [address] [place] [phone] * POCT Hgb A1c (06/17/2025 11:39 [...] Media Lot # [id number] Lot# Expiration Date [id number] Blood Capillary blood specimen / Unknown 06/17/2025 11:39 AM EST Bindu Montgomery MD POINT OF CARE YOLANDA T ENTER/EDIT ORDERABLES Final Result * Strep A Nucleic Acid (05/30/2025 2:49 PM EST) IDNOW SERIAL# [id number] [facility] Strep A Nucleic Acid Negative Negative [facility] Comment:All test results mus t [...] GENERAL ORDERABLES Final Result Performing Organization Address [facility] Co de Phone Number [facility] [address] [place] [phone] * SARS-CoV-2 RNA, Influenza A/B, and RSV RNA, Ql NAAT (05/30/2025 2:49 PM EST) [facility] Influenza A PCR NEGATIVE Negative [facility] Influenza B PCR NEGATIVE Negative [facility] Resp Syncy Virus RNA Qual PCR NEGATIVE Negative [facility] SARS COV2 PCR NEGATIVE Negative [facility] Comment:All test results mus t [...] use by authorized laboratories.Testing performed on the [employer] GeneXpert utilizingreal-time RT-PCR.All SARS CoV2 and positive influenza A/B results arereported to [facility]. 05/30/2025 2:49 PM EST 05/30/2025 2:53 PM EST Generic External Data Provider LAB MICROBIOLOGY - GENERAL ORDERABLES Final Result Performing Organization Address [facility] Co de Phone Number [facility] [address] [place] [phone] * Vitamin B12/Folate, Serum Panel (05/16/2025 11:26 AM EST) Pathologist [facility] Vitamin B12 334 200 - 900 pg/mL [facility] Comment:NORMAL 200-900 PG/ML INDETERMINATE 160-199 PG/ML DEFICIENT < 160 PG/ML Folate 6.4 > or = 4.0 ng/mL [facility] Comment:Reference Values:> o r = [...] MD LAB BLOOD ORDERABLES Final Resul t [facility] [address] [place] [phone] * (ABNORMAL) CBC auto differential (05/16/2025 11:26 AM EST) Pathologist [facility] White Blood Count 7.1 4.8 - 10.8 X10*3/uL [facility] Red Blood Count 4.51 4.20 - 5.50 X10*6/uL [facility] Hemoglobin 13.8 12.0 - 16.0 g/dl [facility] Hematocrit 41.6 37.0 - 47.0 % [facility] Mean Corpuscular Volume 92.2 80.0 - 98.0 fL [facility] Mean Corpuscular Hemoglobin 30.6 27.0 - 33.0 pg [facility] Mean Corpuscular HGB Conc 33.2 31.0 - 35.0 g/dl [facility] Red Cell Distribution Width 12.0 11.0 - 16.0 % [facility] Platelet Count 286 160 - 400 X10*3/uL [facility] Mean Platelet Volume 11.0 9.4 - 12.3 fL [facility] Neutrophils Percent Auto 48.5 45 - 73 % [facility] Imm Gran Pct Auto 0.4 0.0 - 0.4 % [facility] Lymphocytes Percent Auto 41.8(H) 20 - 40 % [facility] Monocytes Percent Auto 5.8 2 - 11 % [facility] Eosinophils Percent Auto 2.6 0 - 4 % [facility] Basophils Percent Auto 0.9 0 - 2 % [facility] NRBC Pct Auto 0.0 0.0 - 0.2 /100WBC [facility] Neutrophils Absolute Auto 3.4 2.0 - 8.3 x10*3/uL [facility] Imm Gran Abs Auto 0.03 0.00 - 0.03 X10*3/uL [facility] Lymphocytes Absolute Auto 3.0 1.2 - 4.9 X10*3/uL [facility] Monocytes Absolute Auto 0.4 0.1 - 1.2 X10*3/uL [facility] Eosinophils Absolute Auto 0.2 0.0 - 0.4 X10*3/uL [facility] Basophils Absolute Auto 0.1 0.0 - 0.2 X10*3/uL [facility] NRBC Abs Auto 0.000 0.0 - 0.012 X10*3/uL [facility] Blood Venous blood specimen / Unknown 05/16/2025 11:26 AM EST 05/16/2025 1:16 PM EST us Perry Levine MD LAB BLOOD ORDERABLES Final Resul t [facility] [address] [place] [phone] * Vitamin D 1,25 dihydroxy (05/16/2025 11:26 AM EST) Vit D (1,25-Dihydroxy) Total 52 18 - 72 pg/mL [facility] VITAMIN D (1,25 OH) D3 52 pg/mL [facility] Vitamin D (1,25 OH) D2 <8 pg/mL [facility] Comment:Vitamin D3, 1,25(OH) 2 indicates both endogenousproduction and supplementation. Vitamin D2, 1,25(OH)2is an indicator of exogenous sources, such as diet orsupplementation. Interpretation and therapy are basedon measurement of Vitamin D,1,25(OH)2, Total.This test was developed and its analyticalperformance characteristics have been determinedby [employer] [place], [place].It has not been cleared or approved by the FDA. Thisassay has been validated pursuant to the CLIAregulations and is used for clinical purposes.THIS TEST WAS PERFORMED AT:[employer] [id number] [place] [address]NSLQFNPHENRIETTA DUQUE MD,PHD Blood Venous blood specimen / Unknown 05/16/2025 11:26 AM EST 05/16/2025 1:16 PM EST us Perry Levine MD LAB BLOOD ORDERABLES Final Resul t [facility] [address] [place] [phone] * (ABNORMAL) Lipid Panel, Standard (09/19/2024 8:55 AM EDT) Triglycerides 144 <150 mg/dL [facility] Comment:Desirable Triglyceri de: less than 150 mg/dLBorderline High Triglyceride 150-199 mg/dLHigh Triglyceride: 200-499 mg/dLVery High Triglyceride: greater than or equal to 5OO mg/dL Cholesterol 209(H) <200 mg/dL [facility] Comment:Desirable Cholestero l: less than 200 mg/dLBorderline High Cholesterol: 200-239 mg/dLHigh Cholesterol: greater than 239 mg/dL LDL Cholesterol Calculated 142(H) <100 mg/dL [facility] Comment:Desirable LDL: less than 100 mg/dLNear Optimal/Above Optimal LDL: 110- 129 mg/dLBorderline High LDL: 130-159 mg/dLHigh LDL: 160-189 mg/dLVery High LDL: greater than or equal to 190 mg/dL HDL Cholesterol 39(L) >40 mg/dL [facility] Comment:Desirable HDL: great er than 40 mg/dL Note: This HDL assay may give artificially low results in patients with liver disease. Blood Venous blood specimen / Unknown 09/19/2024 8:55 AM EDT 09/19/2024 2:17 PM EDT Tila Del Rosario MD LAB BLOOD ORDERABLES Final Resul t [facility] [address] [place] [phone] * Hm Colonoscopy (05/19/2023) Colonoscopy Normal Normal Narrative Susu Gavin MD - 05/19/2023 Normal path for random bx, done in [facility], report in media Historical Provider HEALTH MAINTENANCE Final Result * Hepatitis C Ab (05/30/2022 3:01 PM EST) Pathologist [facility] Hepatitis C Antibody Nonreactive Nonreactive [facility] Comment:Antibodies to HCV no t detected; does not exclude early acuteHCV infection. 05/30/2022 3:01 PM EST 05/30/2022 3:01 PM EST [facility] External Provider LAB BLO OD ORDERABLES Final Result Performing Organization Address City/[facility]/ZIP Co de Phone Number [facility] [address] [place] [phone] * HIV 1/2 ANTIGEN/ANTIBODY,FOURTH GENERATION W/RFL [...] purpose. For additional information please refer to http://education.[employer]/faq/DRA519 (This link is being provided for informational/ educational purposes only.) The performance of this assay has not been clinically validated in patients less than 2 years old. 02/28/2022 8:46 AM EDT us Susu Gavin MD LAB BLOOD ORDERABLES Final Re sult [facility] [address] from Last 3 Months or Most [...] kidney disease 06/17/2025 Weekly blood pressure task 06/24/2025 Weekly blood pressure task 06/24/2025 Patient has chronic kidney disease 06/24/2025 Patient has chronic kidney disease 06/24/2025 Weekly blood pressure task 06/25/2025 Weekly blood pressure task 06/25/2025 Patient has chronic kidney disease 06/25/2025 Patient has chronic kidney disease 06/25/2025 Insurance [facility] C3 Care Teams Speech Pathologist Assistant Relationship Specialty Start Date End Date Susu Gavin MD [address] [place] [address] PCP - General Family Medicine 02/25/22
--- OUTSIDE RECORDS SUMMARY | 2025-06-27 11:53 | XMS_ITS | Encounter Summary ---
Author Organization [employer] Address [address] [facility] [address] [place] [address] Care Team Providers Care Communications Professional Name Role Phone Susu Gavin MD Primary Care Provider [phone] Encounter Details Date Type Department Care Team ([facility] st Contact Info) Description 06/24/2025 Orders Only [facility] [address] [place], [place] [phone] Bindu Mendoza MD [address] [place], [place] [phone] Neuropathy (Primary Dx) Social History Tobacco Use Types Packs/Day Years [...] PM EST documented as of this encounter Progress Notes * Bindu Montgomery MD - 06/24/2025 10:31 PM EST -EMG/NCS 06/2025 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 -recent chem and TFT ,vit B12/Folic acid were normal ,capillary hb1AC 5.7 -Request RN team to inform result to pt -ordered methylmalonic acid ,SPEP, UPEP with immunofixation to complete evaluation -will inform pt results -rest of management as in last visit note -continue care w PCP -if no improvement may need neurology referral if no clear etiology documented in this encounter Plan of Treatment Upcoming Encounters Date Type Department Care Team (Late st Contact Info) Description 07/07/2025 11:30 AM EST Clinical Support [facility] [address] [place] [address] 08/07/2025 10:15 AM EST Office Visit [facility] [address] [place] [address] Susu Gavin MD [address] [place] [address] Scheduled Orders Name Type Priority Associated Diagnoses Orde r Schedule Methylmalonic Acid Lab Routine Neuropathy Expected: 06/24/2025 (Approximate), Expires: 06/24/2026 Protein Electrophoresis and Total Protein, Random Urine Lab Routine Neuropathy Expected: 06/24/2025 (Approximate), Expires: 06/24/2026 Immunofixation, Serum Lab Routine Neuropathy Expected: 06/24/2025 (Approximate), Expires: 06/24/2026 Protein, Total and Protein Electrophoresis Lab Routine Neuropathy Expected: 06/24/2025 (Approximate), Expires: 06/24/2026 documented as of this encounter Goals Goal [...] Plan Weekly blood pressure task No Bindu eMndoza MD Patient has chronic kidney disease Care Plan Patient has chronic kidney disease No Bindu Mendoza MD Patient has chronic kidney disease Care Plan Patient has chronic kidney disease No Bindu Mendoza MD documented as of this encounter Visit Diagnoses Diagnosis Neuropathy- Primary Mononeuritis of unspecified site documented in this encounter Additional Health Concerns [...] 06/24/2025 Patient has chronic kidney disease 06/24/2025 Assessment Noted Time PHQ-9 Depression Total Score: 0 09/19/19 25 10:28 AM EDT documented as of this encounter Care Teams Communications Professional Relationship Specialty Start Date End Date Susu Gavin MD [address] [place] [phone] PCP - General Family Medicine 02/25/22 documented as of this encounter
--- OUTSIDE RECORDS SUMMARY | 2025-06-27 11:53 | XMS_ITS | Clinical Summary ---
Author Organization [facility] Address [address] [place] [address] Phone Care Team Providers Care Stock And Station Agent Name Role Phone Susu Gavin MD Primary Care Provider [phone] Surgical History Surgery Date Site/Laterality Comments HYSTERECTOMY 1997 PROCEDURE: HISTORICAL HYSTERECTOMY OTHER SURGICAL HISTORY 2010 PROCEDURE: [place] ARTHRD ANT TRANSORL/XTRORAL C1-C2 W/WO EXC ODNTD; COMMENT: neck fusion Medical History Medical History Date Comments Asthma 10/29/2021 DX:Asthma HTN (hypertension) 10/29/2021 DX:HTN (hyper tension) Peripheral neuropathic pain 10/29/2021 DX:P eripheral neuropathic pain; COMMENT: Feet bilaterally, podiatry ref to neurology. 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 ([facility] V24, [facility] V28) 10/29/2021 DX:Type 2 diabetes mellitus with neurological manifestation ([facility]) Type 2 diabetes mellitus wit h renal manifestations ([facility] V24, [facility] V28) 10/29/2021 DX:Type 2 diabetes mellitus with renal manifestations ([facility]) 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
--- OUTSIDE RECORDS SUMMARY | 2025-06-27 11:53 | XMS_ITS | Encounter Summary ---
Author Organization [employer] Address [address] [facility] [address] [place] [address] Care Team Providers Care Pecan Sheller Name Role Phone Susu Gavin MD Primary Care Provider [phone] Reason for Visit * Reason Onset Date Comments Results 10/10/2023 Encounter Details Date Type Department Care Team ([facility] Contact Info) Description 10/10/2023 Telephone [facility] [address] [place] [address] Susu Gavin MD [address] [place] [address] Results Social History Tobacco Use Types Packs/Day [...] Description 07/07/2025 11:30 AM EST Clinical Support [facility] [address] [place] [address] 08/07/2025 10:15 AM EST Office Visit [facility] [address] [place] [address] Susu Gavin MD [address] [place] [address] documented as of this encounter Visit Diagnoses Not on filedocumented in this encounter Additional Health Concerns Assessment Noted Time PHQ-9 Depression Total Score: 4 07/28/19 23 1:52 PM EST documented as of this encounter Care Teams Pecan Sheller Relationship Specialty Start Date End Date Susu Gavin MD [address] [place] [address] PCP - General Family Medicine 02/25/22 documented as of this encounter
--- OUTSIDE RECORDS SUMMARY | 2025-06-27 11:53 | XMS_ITS | Encounter Summary ---
Author Organization [employer] Address [address] [place] [address] Care Team Providers Care Medical Secretary Name Role Phone Susu Gavin MD Primary Care Provider [phone] Reason for Visit * Reason Onset Date Comments Results 06/25/2025 Encounter Details Date Type Department Care Team ([facility] Contact Info) Description 06/25/2025 Telephone [facility] [address] [place], [place] [phone] Modesta Bullard RN [address] [place], [place] [phone] Results Social History Tobacco Use Types Packs/Day [...] encounter Miscellaneous Notes * Telephone Encounter - Modesta Bullard RN - 06/25/2025 10:32 AM EST Telephone call placed to pt. Informed of moderately severe peripheral neuropathy in feet for than legs. Informed labs thus far look good. Advised ot complete more specific labs to further evaluate. Pt reports ongoing symptoms. Informed if labs don't point towards etiology, may refer to neurology tofurther evaluate but we will discuss further after labs are back. Pt states will come get labs done right now. -EMG/NCS 06/2025 Moderately severe axonal sensory more [...] Upcoming Encounters Date Type Department Care Team ([facility] st Contact Info) Description 07/07/2025 11:30 AM EST Clinical Support [facility] [address] [place] [address] 08/07/2025 10:15 AM EST Office Visit [facility] [address] [place] [address] Susu Gavin MD [address] [place] [address] documented as of this encounter Goals Goal [...] Plan Weekly blood pressure task No Modesta Bullard RN Weekly blood pressure task Care Plan Weekly blood pressure task No Modesta Bullard RN Patient has chronic kidney disease Care Plan Patient has chronic kidney disease No Modesta Bullard RN Patient has chronic kidney disease Care Plan Patient has chronic kidney disease No Modesta Bullard RN documented as of this encounter Visit Diagnoses [...] 06/25/2025 Patient has chronic kidney disease 06/25/2025 Assessment Noted Time PHQ-9 Depression Total Score: 0 09/19/19 25 10:28 AM EDT documented as of this encounter Care Teams Medical Secretary Relationship Specialty Start Date End Date Susu Gavin MD [address] [place] [address] PCP - General Family Medicine 02/25/22 documented as of this encounter
--- OUTSIDE RECORDS SUMMARY | 2025-06-27 11:53 | XMS_ITS | Clinical Summary ---
Author Organization [facility] Address [address] [place] [address] Care Team Providers Care Fruit Sorter Name Role Phone Susu Gavin MD Primary Care Provider [phone] Allergies No known active allergies Medications ProAir [...] 49 Years) Discontinued 05/18/2023 Insurance Medicaid [place] [facility] [address] Medicaid [place] Care Teams Fruit Sorter Relationship Specialty Start Date End Date Susu Gavin MD PCP - General Family Medicine 03/14/22
--- OUTSIDE RECORDS SUMMARY | 2025-06-27 11:53 | XMS_ITS | Encounter Summary ---
Author Organization [employer] Address [address] [facility] [address] [place] [address] Care Team Providers Care Flaker Operator Name Role Phone Susu Gavin MD Primary Care Provider [phone] Encounter Details Date Type Department Care Team ([facility] Contact Info) Description 06/17/2025 Results Follow-Up [facility] [address] [place], [place] [phone] Bindu Mendoza MD [address] [place] [address] XR Foot 3+ Views Bilateral Social History [...] 11:30 AM EST Clinical Support [facility] [address] [place] [address] 08/07/2025 10:15 AM EST Office Visit [facility] [address] [place] [address] Susu Gavin MD [address] [place] [address] documented as of this encounter Goals Goal [...] documented as of this encounter Care Teams Flaker Operator Relationship Specialty Start Date End Date Susu Gavin MD [address] [place] [id number] PCP - General Family Medicine 02/25/22 documented as of this encounter
[2025-07-01 09:49] LABS: Prot Elec - Albumin 4.1 g/dL (3.8-4.8); Prot Elec - Alpha1 0.2 g/dL (0.2-0.3); Prot Elec - Alpha2 0.7 g/dL (0.5-0.9); Prot Elec - Beta 1 0.5 g/dL (0.4-0.6); Prot Elec - Beta 2 0.5 g/dL (0.2-0.5); Prot Elec - Gamma 1.4 g/dL (0.8-1.7); Prot Elec - Total Protein 7.3 g/dL (6.1-8.1)
== END 2025-06-27 11:47 | disposition home or self-care (01) ==
LOC: HO.LAB 11:46
PROVIDERS: PCP Student in an Organized Health Care Education/Training Program; Visit Provider Student in an Organized Health Care Education/Training Program
DX: G62.9 Polyneuropathy, unspecified (principal)
CPT/HCPCS: 36415; 82784; 83921; 84165; 86334

== ENCOUNTER 2025-07-02 10:41 | Outpatient (REF) | payer MEDICAID, SELFPAY ==
--- OUTSIDE RECORDS SUMMARY | 2024-10-31 03:46 | XMS_ITS | Continuity of Care Document ---
Author Organization [facility] Address [address] [address] Phone Care Team Providers Care Bullion Weigher Name Role Phone Tara Navarro Unavailable Unavailable Allergies, Adverse Reactions, Alerts Substance Reaction Status Criticality No Known Allergies Active No Inform ation Medications Medication Instructions Dosage Effective Dates (start - stop) Status Comments capsaicin 0.025 % topical cream apply by topical route at night to both feet - Active benzonatate 100 mg capsule take 1 capsule by oral route 3 times every day as needed for cough 100 MG - Active nebulizer and compressor Use Nebulizer machine to deliver albuterol medicine as directed - Active albuterol sulfate 2.5 mg/3 mL (0.083 %) solution for nebulization inhale 1 vial by inhalation route 4 x a day via nebulizer as needed - Active ProAir HFA 90 mcg/actuation aerosol inhaler inhale 2 puff by inhalation route every 4 - 6 hours as needed for asthma - Active Symbicort 160 mcg-4.5 mcg/actuation HFA aerosol inhaler inhale 2 puff by inhalation route 2 times every day in the morning and evening for asthma 2.00 puff - Active Vitamin D3 125 mcg (5,000 unit) tablet take every day for low vit D - Active amlodipine 5 mg tablet take 1 tablet by mouth every day for high blood pressure - Active metformin 500 mg tablet take 1 tablet by mouth daily with a meal - Active baclofen 10 mg tablet take 1 tablet by o ral route 3 times every day as needed for muscle spasms 10 MG - Active Advance Directives Directive Yes / No Effective Date File Name No Information Encounters Encounter Description Practice Location Reason(s) For Visit Diagnoses Date Provider [facility], [address], [place], [place], [id number], tel: [phone] [facility] No Information 5 Eladio Pacheco. [address], [place], [address], [place]. tel: [phone] [facility], [address], [place], [place], [id number], [place] tel: [phone] [facility] Foot pain, bilateral 2 Eladio Pacheco. [address], [place], [place], [facility], [place]. tel: [phone] [facility], [address], [place], [place], [id number], [place] tel:000 [facility] (chief complaint) Foot neuralgia, unspecified lateralityNeuropathyPre diabetes 1 Benson Gandhi. [address], [place], [address], [place]. tel: [phone] [facility], [address], [place], [place], [id number], [place] tel:000 [facility] URI (chief complaint) Body mass index [BMI] 40.0-44.9, adultEncounter for screening for respiratory tuberculosisURI, acuteLeft ear painMild persistent asthma with acute exacerbation 1 Eladio Pacheco. [address], [place], [address], [place]. tel: [phone] [facility], [address], [place], [place], [id number], [place] tel: [phone] [facility] No Information 1 Eladio Pacheco. [address], [place], [address], [place]. tel: [phone] [facility], [address], [place], [place], [id number], [place] tel:000 [facility] hypertension (chief complaint)F/U xray of feet (foot pain) (chief complaint) Body mass index [BMI] 40.0-44.9, adultEncounter for screening for respiratory tuberculosisPrediabetes Morbid obesityStage 3a chronic kidney diseasePain in left footEssential (primary) hypertensionMild intermittent asthma without complication 1 Eladio Pacheco. [address], [place], [place], [facility], [place]. tel: [phone] [facility], [address], [place], [place], [id number], [place] tel:000 [facility] Laboratory exam ordered as part of routine general medical examination 1 Eladio Pacheco. [address], [place], [place], [facility], [place]. tel: [phone] [facility], [address], [place], [place], [id number], tel:000 [facility] foot pain (chief complaint) Body mass index [BMI] 40.0-44.9, adultEncounter for screening for respiratory tuberculosisElevated blood pressure readingFoot pain, bilateralPain in left foot 1 Eladio Pacheco. [address], [place], [place], [facility], [place]. tel: [phone] Family History Family Member Type Diagnosis Age At Onset Mother Problem Alive and well Father Problem Alive and well Immunizations Vaccine Date Status Comments Flu Inj Quad, 0.5 mL MDV refused Alpa rce: New Immunization Record TDAP refused Source: New Imm unization Record Td preservative free refused Source: New Immunization Record Payers Payer name Insurance type Covered libertarian ID Authoriza tion(s) [facility] [id number] [facility] [id number] Social History Type Description Quantity Date Captured Comments Sex Female Smoking Status No Information Gender Identity Female Chief Complaint And Reason For Visit No Information Plan Of Treatment Date Type Action Status Goal Cervical Cancer Screening. D ue on due Goal Occult Blood, Fe yaqu[place], [place] (FIT). Due on due Goal Cologuard. Due on due Goal Colonoscopy. Due on [...] yaquelin, [place] (FIT). Due on due Goal FOBT (3 Cards Given). Due on due Goal Colonoscopy. Due on due Goal Tdap. Due on due Goal Cologuard. Due on due Goal Td vaccine. Due on due Goal Flu Vaccine. Due on due Goal Mammogram. Due on due Goal MMR Vaccine. Due on due Goal Depression screening. Due on due Goal Dietary manageme nt [...] nt education, guidance, and counseling completed Goal Td vaccine. Due on due Goal MMR Vaccine. Due on due Goal Mammogram. Due [...] Goal Flu Vaccine. Due on due Goal Dietary manageme nt education, guidance, and counseling completed Referral Referred To: [facility] [place] [phone] Ordered: Referrals: Orthopedics. [facility]. Evaluate and treat ordered Referral Referred To: [facility] [address] [place], [phone] Ordered: Referrals: [facility]. Location: Dr Kenzie Rodriguez. Evaluate and treat ordered Referral Referred To: Dr. Lux [facility] [address] [place], [phone] Ordered: Referrals: Neurology. Dr. [facility]. Evaluate and treat ordered Referral Referred To: Dr. Knowles [place], [place] [phone] Ordered: Referrals: [facility]. Dr. Knowles. Evaluate [...] working F/U xray of feet (foot pain) Pat ient presents for follow up for xray of [...] ankle down. Instructions Date Instruction Additional Infor mation Take Aleve or Ibupro fen as directed [...] provider for Diabetes management Related to Neuropathy Dietary management e ducation, guidance, and counseling [...] En counter for screening for respiratory tuberculosis Refer to Podiatry fo r consult, further evaluation. Related to Pain in left foot Last A1c 6.1 % -- St art Lifestyle and diet changes. Add Metformin 500 mg 1 tablet 1 to 2 x a day with or without meals. Repeat A1c in 3 months. Related to Prediabetes Continue with diet and exercise. Related to Morbid obesity GFR - 58- normal is 60 -- [...] a day as tolerated. Will refer to associate sales. Related to Foot pain, bilateral Dietary management e ducation, guidance, and counseling Related to Body mass index [BMI] 40.0-44.9, adult Giving encouragement to exercise Related to Body mass index [BMI] 40.0-44.9, adult Assessments Type Assessment Date No Information
--- OUTSIDE RECORDS SUMMARY | 2025-07-02 11:58 | XMS_ITS | Clinical Summary ---
Author Organization [employer] Address [address] [place] [address] Care Team Providers Care Sweat Box Attendant Name Role Phone Susu Gavin MD Primary Care Provider [phone] Allergies No known active allergies Medications Blood [...] mouth 2 times daily. 60 tablet Active cyanocobalamin (Vitamin B-12) 500 MCG tablet Take 1 tablet (500 mcg) by mouth Once per day. 90 tablet 025 2025 Active Acetaminophen Extra Strength 500 MG tablet [...] magnesium, thyroid, and chemistry panel ordered by [facility] provider Instructed to follow up with laboratory to ensure completion of pending tests from May 16, 2025. -Advised to restart gabapentin at bedtime for neuropathic symptoms, with option to increase to twice daily after two weeks if tolerated. -Prescribed acetaminophen PRN. -requested [place] to try to get report of last back MRI done per pt w her PM at [facility] 1 to 2 y ago -Continue to f w PCP Assessment & Plan (05/18/2023 2:20 PM EST): Patient presented visit with same complaint of foot pain, therefore, patient will be referred to Podiatry. In addition, patient will be prescribed pain medications. Colon cancer screening 05/18/2023 Assessment & Plan (05/18/2023 2:04 PM EST): Will undergo colonoscopy in [facility] in [place] tomorrow per her report Plantar fasciitis 06/24/2022 [...] recommended reduction of 20-30% of maintenance calories; media services director referral offered. Recommended to decrease soda and [...] Encounters Date Type Department Care Team Description 07/01/2025 Orders Only [facility] [address] [place] [address] Bindu Mendoza MD 07/01/2025 Orders Only [facility] [address] [place] [address] Bindu Mendoza MD Methylmalonic acidemia (CMS/HCC) (Primary Dx) 07/01/2025 Telephone [facility] [address] [place] [address] Susu Gavin MD Care Coordination 07/01/2025 Results Follow-Up [address] [address] Bindu Mendoza MD Methylmalonic Acid, Protein, Total and Protein Electrophoresis 06/30/2025 Travel 06/25/[address] [address] Modesta Bullard, PAYAL Results 06/24/2025 Orders Only [address] [address] Bindu Mendoza MD Neuropathy (Primary Dx) 06/17/2025 11:15 AM EST Office Visit [address] [address] Bindu Mendoza MD Chronic pain of both feet (Primary Dx); Prediabetes; Hypertension, unspecified type; Foot pain, bilateral 06/17/[address] [address] Bindu Mendoza MD MRI notes? 06/17/2025 Results Follow-Up [address] [address] Bindu Mendoza MD XR Foot 3+ Views Bilateral 06/17/2025 Travel 06/17/[address] [address] Susu Gavin MD Transfer 05/30/2025 Orders Only GENERIC EXTERNAL DATA DEPARTMENT Provider, Generic External Data 05/19/2025 Results Follow-Up [facility] [address] [place] [address] Perry Levine MD CBC auto differential, Vitamin B12/Folate, Serum Panel 05/16/2025 10:40 AM EST Office Visit [facility] [address] [place] [phone] Perry Levine MD Numbness and tingling of both feet (Primary Dx); Vitamin D deficiency; Essential hypertension 05/16/2025 Telephone [facility] [address] [place] [address] Prery Levine MD 05/16/2025 Travel from Last 3 [...] [facility] [address] [place] [address] 08/07/2025 10:15 AM EST Office Visit [facility] [address] [place] [address] Susu Gavin MD [address] [place] [address] Health Maintenance Due Date Last Done Comments [...] season) 2025 04/08/2022 Influenza Vaccine (#1) 2025 3, 04/08/2022 Disability Screening 09/11/2025 09/11/2024 Alcohol/Substance Use [...] chronic kidney disease No Modesta Bullard RN Weekly blood pressure [...] Care Plan Weekly blood pressure task No Kaykay Medellin RN Weekly blood pressure task Care Plan Weekly blood pressure task No Kaykay Medellin RN Patient has chronic kidney disease Care Plan Patient has chronic kidney disease No Kaykay Medellin RN Patient has chronic kidney disease Care Plan Patient has chronic kidney disease No Kaykay Medellin RN Weekly blood pressure task Care Plan [...] Care Plan Patient has chronic kidney disease Bindu Du MD Patient has chronic kidney disease Care Plan Patient has chronic kidney disease No Bindu Mendoza MD Procedures Procedure Name Priority Date/Time Associated Diagnosis Comments PROTEIN, TOTAL AND PROTEIN ELECTROPHORESIS Routine 06/27/2025 11:58 AM EST Neuropathy IMMUNOFIXATION, SERUM Routine 06/27/2025 11:58 AM EST Neuropathy METHYLMALONIC ACID Routine 06/27/2025 11 :58 AM EST Neuropathy XR FOOT 3+ VIEWS BILATERAL Routine 06/17/2025 [...] 06/17/2025 11:39 AM EST Prediabetes POCT GLUCOSE (CPT-92582) Routine 06/17/2025 11:39 AM EST Prediabetes SARS [...] Recently Relevant to Health Maintenance Results * (ABNORMAL) Methylmalonic Acid (06/27/2025 11:58 AM EST) [facility] Methylmalonic Acid 341(A) 55 - 335 nmol/L [facility] Comment: Serum methylmalonic acid (MMA) levels are used todiagnose and monitor several rare inborn errors ofmetabolism, including methylmalonic aciduria. Theenzymatic conversion of MMA to succinic acid requiresvitamin B12 (adenosyl-cobalamin) as a cofactor. SerumMMA levels are also used for assessing functionalvitamin B12 deficiency. Vitamin B12 is essential forfetal neurodevelopment, particularly early inpregnancy. Undiagnosed maternal vitamin B12 deficiencymay be associated with adverse / outcomes,such as neural tube defects and intrauterine growthrestriction.[email or web address] utilized Multi-Modal Decomposition(MMD) analysis to establish first and second trimester-specific MMA reference intervals in , as givenbelow:MMA, First trimester (<13 wks gestation): 58-167 nmol/LMMA, Second trimester (13-23 wks gestation):63-241 nmol/LThis test was developed and its analytical performancecharacteristics have been determined by [employer]. It has not been cleared or approved by theFDA. This assay has been validated pursuant to the CLIAregulations and is used for clinical purposes.THIS TEST WAS PERFORMED AT:[employer]/[facility] [place] [address]TKFUWAFHENRIETTA DUQUE MD,PHD Blood Venous blood specimen / Unknown 06/27/2025 11:58 AM EST 06/27/2025 11:58 AM EST us Bindu Montgomery MD LAB BLOOD ORDERAB LES Final Result Performing Organization Address [facility] Co de Phone Number [facility] [address] [place] [address] [phone] * Immunofixation, Serum (06/27/2025 11:58 AM EST) IMMUNOGLOBULIN G 1511 600 - 1640 mg/dL [facility] IMMUNOGLOBULIN A 309 47 - 310 mg/dL [facility] Immunoglobulin M 86 50 - 300 mg/dL [facility] Comment:THIS TEST WAS PERFOR MED AT:[employer] [address] [id number] NELSON MD Immunofixation Result SEE NOTE [facility] Comment:Normal pattern. No m onoclonal proteins detected. Blood Venous blood specimen / Unknown 06/27/2025 11:58 AM EST 06/27/2025 11:58 AM EST us Bindu Montgomery MD LAB BLOOD ORDERAB LES Final Result Performing Organization Address [facility] Co de Phone Number [facility] [address] [place] [address] [phone] * XR Foot 3+ Views Bilateral (06/17/2025 12:21 PM EST) Anatomical Region Laterality Modality Lower Extremities, Foot Bilateral Radiogra phic Imaging 06/17/2025 12:2 1 PM EST Narrative 06/17/2025 12:48 PM EST [address] [address] XRay Report Signed Patient: Paula Mendez MR#: [id number] : 1975 Acct:[id number] Age/Sex: 50 / F ADM Date: 06/17/25 Loc: [facility] Attending Dr: Perry Levine MD Ordering Physician: Bindu Mendoza MD Date of Service: 06/17/25 Procedure(s): XR Foot Nikolay 3V Accession Number(s): [id number] cc: Bindu Mendoza MD; Susu Gavin MD [...] by: Bryant Lantigua MD 06/17/2025 12:45 PM [facility] Dictated By: Bryant Lantigua MD Signed By: <Electronically signed by Bryant Lantigua MD in OV> 06/17/25 1245 DD/ 1221 TD/TT: 06/17/25 1239 Combined Rail Operator: Procedure Note Donotuseinterpreter, Image - 06/17/[address] [address] XRay Report Signed Patient: Paula MendezMR#: [id number] : 1975Acct:[id number] Age/Sex: 50 / FADM Date: 06/17/25 Loc: [facility] Attending Dr: Perry Levine MD Ordering Physician: Bindu Mendoza MD Date of Service: 06/17/25 Procedure(s): XR Foot Nikolay 3V Accession Number(s): [id number] cc: Bindu Mendoza MD; Susu Gavin MD [...] 06/17/25 1245 DD/ 1221 TD/TT: 06/17/25 1239 Combined Rail Operator: us Bindu Montgomery MD IMG XR PROCEDURES Edited Result - Final * TSH W/Reflex to FT4 (06/17/2025 11:44 AM EST) TSH reflex Free T4 1.53 0.32 - 4.0 uIU/mL [facility] Blood Venous blood specimen / Unknown 06/17/2025 11:44 AM EST 06/17/2025 2:54 PM EST us Perry Levine MD LAB BLOOD ORDERABLES Final Resul t [facility] [address] [place] [phone] * Magnesium (06/17/2025 11:44 AM EST) Magnesium 1.6 1.6 - 2.6 mg/dL [facility] Blood Venous blood specimen / Unknown 06/17/2025 11:44 AM EST 06/17/2025 2:54 PM EST Perry Levine MD LAB BLOOD ORDERABLES Final Resul t Performing Organization Address [facility] Co de Phone Number [facility] [address] [place] [phone] * (ABNORMAL) Basic Metabolic Panel (06/17/2025 11:44 AM EST) Pathologist [facility] Sodium 142 135 - 145 mmol/L [facility] Potassium 4.0 3.3 - 5.1 mmol/L [facility] Chloride 108 96 - 108 mmol/L [facility] Carbon Dioxide 28 22 - 29 mmol/L [facility] Anion Gap 10(L) 12 - 20 [facility] Urea Nitrogen (BUN) 11 9 - 16 mg/dL [facility] Creatinine, Serum 1.21 0.5 - 1.4 mg/dL [facility] Estimated Glomerular Filt Rate 47 [facility] Comment:Chronic Kidney Disea se: Estimated GFR < 60 mL/min/[id number] Kidney Disease: Estimated GFR < 15 mL/min/1.73m2 Glucose 111 60 - 115 mg/dL [facility] Calcium 9.0 8.4 - 10.2 mg/dL [facility] Blood Venous blood specimen / Unknown 06/17/2025 11:44 AM EST 06/17/2025 2:54 PM EST us Perry Levine MD LAB BLOOD ORDERABLES Final Resul t Performing Organization Address City/[facility] Co de Phone Number [facility] [address] [place] [phone] * POCT Hgb A1c (06/17/2025 11:39 AM EST) Hemoglobin A1C 5.7 4.0 - 5.7 % QC Media Lot # [id number] Lot# Expiration Date 172,027 Blood 06/17/2025 11:3 9 AM EST Bindu Montgomery MD POINT OF CARE YOLANDA T ENTER/EDIT ORDERABLES Final Result * POCT Glucose (06/17/2025 11:39 AM EST) Glucose Blood, POC 160 60 - 200 mg/dL QC Media Lot # [id number] Lot# Expiration Date ,026 Blood Capillary blood specimen / Unknown 06/17/2025 11:39 AM EST Bindu Montgomery MD POINT OF CARE YOLANDA T ENTER/EDIT ORDERABLES Final Result * Strep A Nucleic Acid (05/30/2025 2:49 PM EST) IDNOW SERIAL# [id number] [facility] Strep A Nucleic Acid Negative Negative [facility] Comment:All test results mus t be correlated with clinical findings.This test has not been evaluated for monitoring treatment ofinfection.Additional follow-up testing using the culture method isrequired if the result is negative and clinical symptomspersist, or in the event of an acute rheumatic feveroutbreak. 05/30/2025 2:49 PM EST 05/30/2025 2:53 PM EST Generic External Data Provider LAB MICROBIOLOGY - GENERAL ORDERABLES Final Result [facility] [address] [place] [phone] * SARS-CoV-2 RNA, Influenza A/B, and RSV RNA, Ql NAAT (05/30/2025 2:49 PM EST) Influenza A PCR NEGATIVE Negative [facility] Influenza B PCR NEGATIVE Negative [facility] Resp Syncy Virus RNA Qual PCR NEGATIVE Negative [facility] SARS COV2 PCR NEGATIVE Negative [facility] [...] use by authorized laboratories.Testing performed on the [employer] utilizingreal-time RT-PCR.All SARS CoV2 and positive influenza A/B results arereported to [facility]. 05/30/2025 2:49 PM EST 05/30/2025 2:53 PM EST us Generic External Data Provider LAB MICROBIOLOGY - GENERAL ORDERABLES Final Result [facility] [address] [place] [phone] * Vitamin B12/Folate, Serum Panel (05/16/2025 11:26 AM EST) Vitamin B12 334 200 - 900 pg/mL [facility] Comment:NORMAL 200-900 PG/ML INDETERMINATE 160-199 PG/ML DEFICIENT < 160 PG/ML Folate 6.4 > or = 4.0 ng/mL [facility] Comment:Reference Values:> o r = 4.0 ng/mL< 4.0 ng/mL suggests folate deficiency Methotrexate, aminopterin and folinic acid(leucovorin) are chemotherapeutic agents whose molecularstructures are similar to folate; therefore, the Architectfolate assay cannot be used for patients using these drugs. Blood Venous blood specimen / Unknown 05/16/2025 11:26 AM EST 05/16/2025 1:16 PM EST us Perry Levine MD LAB BLOOD ORDERABLES Final Resul t [facility] [address] [place] [phone] * (ABNORMAL) CBC auto differential (05/16/2025 11:26 AM EST) White Blood Count 7.1 4.8 - 10.8 X10*3/uL [facility] Red Blood Count 4.51 4.20 - 5.50 X10*6/uL [facility] Hemoglobin 13.8 12.0 - 16.0 g/dl [facility] Hematocrit 41.6 37.0 - 47.0 % [facility] Mean Corpuscular Volume 92.2 80.0 - 98.0 fL [facility] Mean Corpuscular Hemoglobin 30.6 27.0 - 33.0 pg [facility] Mean Corpuscular HGB Conc 33.2 31.0 - 35.0 g/dl [facility] Red Cell Distribution Width 12.0 11.0 - 16.0 % [facility] Platelet Count 286 160 - 400 X10*3/uL [facility] Mean Platelet Volume 11.0 9.4 - 12.3 fL [facility] Neutrophils Percent Auto 48.5 45 - 73 % [facility] Imm Gran Pct Auto 0.4 0.0 - 0.4 % [facility] Lymphocytes Percent Auto 41.8(H) 20 - 40 % [facility] Monocytes Percent Auto 5.8 2 - 11 % [facility] Eosinophils Percent Auto 2.6 0 - 4 % [facility] Basophils Percent Auto 0.9 0 - 2 % [facility] NRBC Pct Auto 0.0 0.0 - 0.2 /100WBC [facility] Neutrophils Absolute Auto 3.4 2.0 - 8.3 x10*3/uL [facility] Imm Gran Abs Auto 0.03 0.00 - 0.03 X10*3/uL [facility] Lymphocytes Absolute Auto 3.0 1.2 - 4.9 X10*3/uL [facility] Monocytes Absolute Auto 0.4 0.1 - 1.2 X10*3/uL [facility] Eosinophils Absolute Auto 0.2 0.0 - 0.4 X10*3/uL [facility] Basophils Absolute Auto 0.1 0.0 - 0.2 X10*3/uL [facility] NRBC Abs Auto 0.000 0.0 - 0.012 X10*3/uL [facility] Blood Venous blood specimen / Unknown 05/16/2025 11:26 AM EST 05/16/2025 1:16 PM EST us Perry Levine MD LAB BLOOD ORDERABLES Final Resul t [facility] [address] [place] [phone] * Vitamin D 1,25 dihydroxy (05/16/2025 11:26 AM EST) Vit D (1,25-Dihydroxy) Total 52 18 - 72 pg/mL [facility] VITAMIN D (1,25 OH) D3 52 pg/mL [facility] Vitamin D (1,25 OH) D2 <8 pg/mL [facility] Comment:Vitamin D3, 1,25(OH) 2 indicates both endogenousproduction and supplementation. Vitamin D2, 1,25(OH)2is an indicator of exogenous sources, such as diet orsupplementation. Interpretation and therapy are basedon measurement of Vitamin D,1,25(OH)2, Total.This test was developed and its analyticalperformance characteristics have been determinedby [facility]App[facility], [place], [place].It has not been cleared or approved by the FDA. Thisassay has been validated pursuant to the CLIAregulations and is used for clinical purposes.THIS TEST WAS PERFORMED AT:[employer] [id number] [place] [address]TSKBERBHENRIETTA DUQUE MD,PHD Blood Venous blood specimen / Unknown 05/16/2025 11:26 AM EST 05/16/2025 1:16 PM EST us Perry Levine MD LAB BLOOD ORDERABLES Final Resul t Performing Organization Address [facility] Co de Phone Number [facility] [address] [place] [address] [phone] * (ABNORMAL) Lipid Panel, Standard (09/19/2024 8:55 AM EDT) Triglycerides 144 <150 mg/dL [facility] Comment:Desirable Triglyceri de: less than 150 mg/dLBorderline High Triglyceride 150-199 mg/dLHigh Triglyceride: 200-499 mg/dLVery High Triglyceride: greater than or equal to 5OO mg/dL Cholesterol 209(H) <200 mg/dL [facility] Comment:Desirable Cholestero l: less than 200 mg/dLBorderline High Cholesterol: 200-239 mg/dLHigh Cholesterol: greater than 239 mg/dL LDL Cholesterol Calculated 142(H) <100 mg/dL [facility] Comment:Desirable LDL: less than 100 mg/dLNear Optimal/Above Optimal LDL: 110- 129 mg/dLBorderline High LDL: 130-159 mg/dLHigh LDL: 160-189 mg/dLVery High LDL: greater than or equal to 190 mg/dL HDL Cholesterol 39(L) >40 mg/dL [facility] Comment:Desirable HDL: great er than 40 mg/dL Note: This HDL assay may give artificially low results in patients with liver disease. Blood Venous blood specimen / Unknown 09/19/2024 8:55 AM EDT 09/19/2024 2:17 PM EDT us Tila Del Rosario MD LAB BLOOD ORDERABLES Final Resul t Performing Organization Address [facility] Co de Phone Number [facility] [address] [place] [phone] * Hm Colonoscopy (05/19/2023) Colonoscopy Normal Normal Narrative Susu Gavin MD - 05/19/2023 [address] path for random bx, done in [facility], report in media Result [facility] Historical Provider HEALTH MAINTENANCE Final Result * Hepatitis C Ab (05/30/2022 3:01 PM EST) Hepatitis C Antibody Nonreactive Nonreactive [facility] Comment:Antibodies to HCV no t detected; does not exclude early acuteHCV infection. 05/30/2022 3:01 PM EST 05/30/2022 3:01 PM EST Result [facility] External Provider LAB BLO OD ORDERABLES Final Result [facility] [address] [place] [phone] * HIV 1/2 ANTIGEN/ANTIBODY,FOURTH GENERATION W/RFL [...] purpose. For additional information please refer to http://education.[employer].com/faq/FFR572 (This link is being provided for informational/ educational purposes only.) The performance of this assay has not been clinically validated in patients less than 2 years old. 02/28/2022 8:46 AM EDT Susu Gavin MD LAB BLOOD ORDERABLES Final Re sult [facility] [address] [place] [address], from Last 3 Months or Most Recently [...] 06/25/2025 Patient has chronic kidney disease 06/25/2025 Weekly blood pressure task 07/01/2025 Weekly blood pressure task 07/01/2025 Patient has chronic kidney disease 07/01/2025 Patient has chronic kidney disease 07/01/2025 Weekly blood pressure task 07/01/2025 Weekly blood pressure task 07/01/2025 Patient has chronic kidney disease 07/01/2025 Patient has chronic kidney disease 07/01/2025 Weekly blood pressure task 07/01/2025 Weekly blood pressure task 07/01/2025 Patient has chronic kidney disease 07/01/2025 Patient has chronic kidney disease 07/01/2025 Weekly blood pressure task 07/01/2025 Weekly blood pressure task 07/01/2025 Patient has chronic kidney disease 07/01/2025 Patient has chronic kidney disease 07/01/[address] [facility] C3 Care Teams Sweat Box Attendant Relationship Specialty Start Date End Date Susu Gavin MD [address] [place] [address] PCP - General Family Medicine 02/25/22
--- OUTSIDE RECORDS SUMMARY | 2025-07-02 11:58 | XMS_ITS | Encounter Summary ---
Author Organization [employer] Address [address] [place] [address] 7 [place] [address] Care Team Providers Care Pearl Hand Name Role Phone Susu Gavin MD Primary Care Provider [phone] Reason for Visit * Reason Onset Date Comments Results 07/01/2025 Encounter Details Date Type Department Care Team (Latest Contact Info) Description 07/01/2025 Results Follow-Up [facility] [address] [place], [place] [phone] Bindu Mendoza MD [address] [place] [address] Methylmalonic Acid, Protein, Total and Protein Electrophoresis Social History Tobacco Use Types Packs/Day Years [...] encounter Miscellaneous Notes * Telephone Encounter - Shiela Veloz RN - 07/02/2025 10:26 AM EST Called pt, explained results as below: - MMA ( methimalonic acid) slightly elevated -- not enough vit B 12 in cells, informed that daily B12 supplement sent to pharmacy - SPEP and immunofixation are normal -pending urine protein electrophoresis Pt states she never did urine sample at the lab (at [facility]), states they couldn't see any urine sample lab. Advised her will look into this and call back. Informed her that additional labs ordered, pt states she will complete next week. Informed her if B12 supplement does not help, will consider neurology referral and to keep next PCP appointment. Pt verbalized understanding. * Telephone Encounter - Shiela Veloz RN - 07/02/2025 10:01 AM EST ----- Message from Nurse Radha Harris sent at 07/01/2025 3:57 PM EST ----- ----- Message ----- From: Bindu Montgomery MD Sent: 07/01/2025 3:46 PM EST To: Radha Villalobos RN I tried calling pt to explain results but not able to reach at this time -SPEP and immunofixation are normal , Pd UPEP result ,will inform pt if abnormal -Please inform pt her MMA ( methimalonic acid ) is slight elevated meaning even her Vit B12 was normal before seems there is not enough vit B 12 in cells so I prescribed pt vit B12 500 mg daily and please advise pt to keep apt w her PCP in 08/2025 To have a plan to monitor level and symptoms , if symptoms dont improve despite taking vit B12 that may help w neuropathy then will need to discuss w PCP for neurologist referral -please advise pt to get stool and extra blood test to evaluate cause of elevated MMA in blood -will inform results when available Thanks ----- Message ----- From: Radha Villalobos RN Sent: 07/01/2025 3:26 PM EST To: MD Moise Fofana, I called the lab and inquired about adding on those tests to the MMA. Unfortunately this test has to be sent out so they no longer have the blood. These tests will need to be reordered. ----- Message ----- From: Bindu Montgomery MD Sent: 07/01/2025 2:22 PM EST To: [facility] Team Nurses As part of evaluation of MMA elevation Please can you request to lab to add -Anti-intrinsic factor antibodies AND -Anti-parietal cell antibodies If not possible please let me know so I can order tests along with h pylori stool test Thanks ----- Message ----- From: Interface, Lab Results In Sent: 06/30/2025 9:29 AM EST To: Bindu Montgomery MD * Result Encounter Note - Bindu Montgomery MD - 07/01/2025 2:18 PM EST Noted mild elevate MMA So far normal SPEP Pd UPEP and immunofixation results -vit B 12 in 05/2025 Was wnl at 334 Elevated methylmalonic acid (MMA) with a normal vitamin B12 level suggests functional vitamin [id number], where tissue-level B12 insufficiency exists despite adequate circulating vitamin levels. This occurs in approximately 60-66% of elderly patients with elevated homocysteine and represents a diagnostic challenge that requires metabolic testing beyond serum B12 alone. Will wait for rest of lab results , if rest are neg will prescribe Vit B 12 500 mg daily and to continue care w PCP ,has apt w PCP in 08/2025 to continue monitor symptoms and MMA, vit b12 level , if no improvement then will need to consider neurologist evaluation by PCP documented in this encounter Plan of Treatment Upcoming Encounters Date Type Department Care Team (Late st Contact Info) Description 07/07/2025 11:30 AM EST Clinical Support [facility] & PEDS [address] [place] [address] 08/07/2025 10:15 AM EST Office Visit [facility] [address] [place] [address] Susu Gavin MD [address] [place] [address] documented as of this encounter Goals Goal [...] 07/01/2025 Patient has chronic kidney disease 07/01/2025 Assessment Noted Time PHQ-9 Depression Total Score: 0 09/19/19 25 10:28 AM EDT documented as of this encounter Care Teams Pearl Hand Relationship Specialty Start Date End Date Susu Gavin MD [address] [place] [address] PCP - General Family Medicine 02/25/22 documented as of this encounter
--- OUTSIDE RECORDS SUMMARY | 2025-07-02 11:58 | XMS_ITS | Encounter Summary ---
Author Organization [employer] Address [address] [facility] 7t [place] [address] Care Team Providers Care Teaching Specialists Name Role Phone Susu Gavin MD Primary Care Provider [phone] Encounter Details Date Type Department Care Team ([facility] st Contact Info) Description 07/01/2025 Orders Only [facility] [address] [place], [place] [phone] Bindu Mendoza MD [address] [place], [place] [phone] Methylmalonic acidemia (CMS/HCC) (Primary Dx) Social History Tobacco Use Types [...] Progress Notes * Bindu Montgomery MD - 07/01/2025 3:37 PM EST . documented in this encounter Plan of Treatment Upcoming Encounters Date Type Department Care Team (Late st Contact Info) Description 07/07/2025 11:30 AM EST Clinical Support [facility] MED & PEDS [address] [place] [address] 08/07/2025 10:15 AM EST Office Visit [facility] PED[facility] [address] [place] [address] Susu Gavin MD [address] [place] [address] Scheduled Orders Name Type Priority Associated Diagnoses Orde r Schedule Intrinsic Factor Blocking Antibody Lab Routine Methylmalonic acidemia (CMS/HCC) Expected: 07/01/2025 (Approximate), Expires: 07/01/2026 Parietal Cell Antibody, LUCINA Lab Routine Methylmalonic acidemia ([facility]/HCC) Expected: 07/01/2025 (Approximate), Expires: 07/01/2026 Helicobacter pylori Antigen, EIA, Stool Lab Routine Methylmalonic acidemia ([facility]/HCC) Expected: 07/01/2025, Expires: 07/01/2026 documented as of this encounter Goals Goal [...] as of this encounter Visit Diagnoses Diagnosis 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
--- OUTSIDE RECORDS SUMMARY | 2025-07-02 11:58 | XMS_ITS | Clinical Summary ---
Author Organization [facility] Address [address] [place] [address] Phone Care Team Providers Care Medical Records Assistant Name Role Phone Susu Gavin MD Primary Care Provider [phone] Surgical History Surgery Date Site/Laterality Comments HYSTERECTOMY 1997 PROCEDURE: HISTORICAL HYSTERECTOMY OTHER SURGICAL HISTORY 2010 PROCEDURE: LA ARTHRD ANT TRANSORL/XTRORAL C1-C2 W/WO EXC ODNTD; COMMENT: neck fusion Medical History Medical History Date Comments Asthma 10/29/2021 DX:Asthma HTN (hypertension) 10/29/2021 DX:HTN (hyper tension) Peripheral neuropathic pain 10/29/2021 DX:P eripheral neuropathic pain; COMMENT: Feet bilaterally, podiatry ref to neurology. Morbid obesity with BMI of 4 0.0-44.9, adult ([facility] V24, [facility] V28) 10/29/2021 DX:Morbid obesity wit h BMI of 40.0-44.9, adult ([facility]) CKD (chronic kidney disease) stage 3, GFR 30-59 ml/min ([facility] V24, [facility] V28) 10/29/2021 DX:CKD (chronic kidney disea se) stage 3, GFR 30-59 ml/min ([facility]) Generalized edema 10/29/2021 DX:Generalized edema 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 ([facility] V24, [facility] V28) 10/29/2021 DX:Type 2 diabetes mellitus with neurological manifestation ([facility]) Type 2 diabetes mellitus wit h renal manifestations ([facility] V24, [facility] V28) 10/29/2021 DX:Type 2 diabetes mellitus with renal manifestations ([facility]) 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
--- OUTSIDE RECORDS SUMMARY | 2025-07-02 11:58 | XMS_ITS | Encounter Summary ---
Author Organization [employer] Address [address] [facility] 7t [place] [address] Care Team Providers Care Group Insurance Specialist Name Role Phone Susu Gavin MD Primary Care Provider Encounter Details Date Type Department Care Team ([facility] Contact Info) Description 06/17/2025 Results Follow-Up [facility] [address] [place], [place] [phone] Bindu Mendoza MD [address] [place] [address] XR Foot 3+ Views Bilateral Social History [...] Description 07/07/2025 11:30 AM EST Clinical Support [facility] & PEDS [address] [place] [address] 08/07/2025 10:15 AM EST Office Visit [facility] & PEDS [address] [place] [address] Susu Gavin MD [address] [place] [address] documented as of this encounter Goals Goal [...] documented as of this encounter Care Teams Group Insurance Specialist Relationship Specialty Start Date End Date Susu Gavin MD [address] [place] [address] PCP - General Family Medicine 02/25/22 documented as of this encounter
--- OUTSIDE RECORDS SUMMARY | 2025-07-02 11:58 | XMS_ITS | Patient Health Record ---
Author Organization [facility] Address [address] [place] [address] Care Team Providers Care Explosive Operator Fuse Name Role Phone Baylee - DO NOT USEDiana ry Care Provider Unavailable Savanna Riggs Unavailable Reason For Referral No Information Plan Of Treatment No Information
--- OUTSIDE RECORDS SUMMARY | 2025-07-02 11:58 | XMS_ITS | Encounter Summary ---
Author Organization [employer] Address [address] [facility] 7t [place] [address] Care Team Providers Care Layout Operator Name Role Phone Susu Gavin MD Primary Care Provider [phone] Encounter Details Date Type Department Care Team ([facility] Contact Info) Description 07/01/2025 Orders Only [facility] MEDICINE [address] [place], [place] [phone] Bindu Mendoza MD [address] [place], [place] [phone] Social History Tobacco Use Types Packs/Day Years [...] Upcoming Encounters Date Type Department Care Team ([facility] st Contact Info) Description 07/07/2025 11:30 AM EST Clinical Support [facility] MED & PEDS [address] [place] [id number] 08/07/2025 10:15 AM EST Office Visit [facility] PEDS [address] [place] [address] Susu Gavin MD [address] [place] [address] documented as of this encounter Goals Goal [...] documented as of this encounter Care Teams Layout Operator Relationship Specialty Start Date End Date Susu Gavin MD [address] [place] [address] PCP - General Family Medicine 02/25/22 documented as of this encounter
--- OUTSIDE RECORDS SUMMARY | 2025-07-02 11:58 | XMS_ITS | Encounter Summary ---
Author Organization [employer] Address [address] [facility] 7t [place] [address] Care Team Providers Care Consulting Software Engineer Name Role Phone Susu Gavin MD Primary Care Provider [phone] Reason for Visit * Reason Onset Date Comments Care Coordination 07/01/2025 Encounter Details Date Type Department Care Team ([facility] st Contact Info) Description 07/01/2025 Telephone [facility] PEDS [address] [place], [place] [phone] Susu Gavin MD [address] [place] [address] Care Coordination Social History Tobacco Use Types Packs/Day Years [...] encounter Miscellaneous Notes * Telephone Encounter - Kaykay Medellin RN - 07/01/2025 3:11 PM EST TC to pt to attempt to r/s appointment next week due to staffing. No answer. VM left instructing ptto return call to office to r/s. documented in this encounter Plan of Treatment Upcoming Encounters Date Type Department Care Team (Late st Contact Info) Description 07/07/2025 11:30 AM EST Clinical Support [facility] MED & PEDS [address] [place] [address] 08/07/2025 10:15 AM EST Office Visit [facility] PED[facility] [address] [place] [address] Susu Gavin MD [address] [place] [address] documented as of this encounter Goals Goal [...] Weekly blood pressure task No Jeancarlos Zuniga [place] Patient has chronic kidney disease Care Plan Patient has chronic kidney disease No Jeancarlos Zuniga [place] Patient has chronic kidney disease Care Plan Patient has chronic kidney disease No Jeancarlos Zuniga [place] Weekly blood pressure task Care Plan Weekly [...] has chronic kidney disease Bindu Du MD documented as of this encounter Visit [...] documented as of this encounter Care Teams Consulting Software Engineer Relationship Specialty Start Date End Date Susu Gavin MD [address] [place] [address] PCP - General Family Medicine 02/25/22 documented as of this encounter
--- OUTSIDE RECORDS SUMMARY | 2025-07-02 11:58 | XMS_ITS | Clinical Summary ---
Author Organization [facility] Address [address] [place] [address] Care Team Providers Care Car Spotter Name Role Phone Susu Gavin MD Primary Care Provider [phone] Allergies No known active allergies Medications ProAir [...] 49 Years) Discontinued 05/18/2023 Insurance Medicaid [place] [facility] [place] [address] [address] Medicaid [place] Care Teams Car Spotter Relationship Specialty Start Date End Date Susu Gavin MD PCP - General Family Medicine 03/14/22
--- OUTSIDE RECORDS SUMMARY | 2025-07-02 11:58 | XMS_ITS | Encounter Summary ---
Author Organization [email or web address] Address [address] [facility] [address] 7[address] [place] [address] Care Team Providers Care Breast Worker Name Role Phone Susu Gavin MD Primary Care Provider [phone] Encounter Details Date Type Department Care Team (Latest Contact Info) Description 06/30/2025 Travel Social History Tobacco Use Types Packs/Day [...] Upcoming Encounters Date Type Department Care Team ([facility] st Contact Info) Description 07/07/2025 11:30 AM EST Clinical Support [facility] & PEDS [address] [place] [address] 08/07/2025 10:15 AM EST Office Visit [facility] [address] [place] [address] Susu Gavin MD [address] [place] [address] documented as of this encounter Goals Goal [...] documented as of this encounter Care Teams Breast Worker Relationship Specialty Start Date End Date Susu Gavin MD [address] [place] [address] PCP - General Family Medicine 02/25/22 documented as of this encounter
--- OUTSIDE RECORDS SUMMARY | 2025-07-02 11:58 | XMS_ITS | Encounter Summary ---
Author Organization [employer] Address [address] [facility] [address] 7t [place] [address] Care Team Providers Care Medical Staff Director Name Role Phone Susu Gavin MD Primary Care Provider [phone] Reason for Visit * Reason Onset Date Comments Results 10/10/2023 Encounter Details Date Type Department Care Team ([facility] Contact Info) Description 10/10/2023 Telephone [facility] MEDICINE [address] [place] [address] Susu Gavin MD [address] [place] [address] Results Social History Tobacco Use Types Packs/Day [...] Description 07/07/2025 11:30 AM EST Clinical Support [facility] MED & PEDS [address] [place] [address] 08/07/2025 10:15 AM EST Office Visit [facility] MED & PEDS [address] [place] [address] Susu Gavin MD [address] [place] [address] documented as of this encounter Visit Diagnoses Not on filedocumented in this encounter Additional Health Concerns Assessment Noted Time PHQ-9 Depression Total Score: 4 07/28/19 23 1:52 PM EST documented as of this encounter Care Teams Medical Staff Director Relationship Specialty Start Date End Date Susu Gavin MD [address] [place] [address] PCP - General Family Medicine 02/25/22 documented as of this encounter
== END 2025-07-02 10:42 | disposition home or self-care (01) ==
LOC: HO.HHCL 10:41
PROVIDERS: PCP Student in an Organized Health Care Education/Training Program; Visit Provider Student in an Organized Health Care Education/Training Program
DX: E71.120 Methylmalonic acidemia (principal)
CPT/HCPCS: 36415; 83516; 86340